=== PATIENT | female | born 1960 | race Caucasian/White ===

== ENCOUNTER 2018-09-23 08:30 | Emergency (ER) | payer OTHER ==
[~2018-09-23] VITALS: Ht 165.1 cm; Wt 149.7 kg
[~2018-09-23 08:30] MED LIST: ALBU90OI6 INH; ALLO100; ALLO100 PO; ASPI325; ASPI325 PO; ASPI81CH PO; BUDE32NIS; BUTALB-ACETAMI1 EAC1 PO; CLON.5 PO; CYCL10; DOCU100; EXEN5PENI; FERR325; FLUO10; FLUSAL1005 INH; FURO40; GLIM2; GLIP10 PO; HYDACE5325; ISOMON20 PO; ISOSORBIDE PO; LISI20; Lantus100 UNIT/1 SQ; METF500; METF500 PO; METO25 PO; MONT10T PO; MONT4 PO; NASAL SPRAY; NIAC500 PO; PANT40 PO; PIOG15 PO; POTASSIUM; POTASSIUM99 M1 PO; Prinivil10 MG PO; QVAR7.3 G1; QVAR7.3 G1 IH; TIZANIDINE HCL2 MG PO
[2018-09-23 09:22] LABS: BASOPHILS ABSOLUTE AUTO 0.04 K/mm3 (0.00-0.23); BASOPHILS PERCENT AUTO 0 % (0-2); EOSINOPHILS ABSOLUTE AUTO 0.14 K/mm3 (0.00-0.68); EOSINOPHILS PERCENT AUTO 2 % (0-6); Hematocrit 40.4 % (33.0-51.0); Hemoglobin 12.5 g/dL (11.5-16.0); IMMATURE GRAN ABSOLUTE AUTO 0.04 K/mm3 (0.00-0.10); IMMATURE GRAN PERCENT AUTO 0 % (0-1); LYMPHOCYTES ABSOLUTE AUTO 1.79 K/mm3 (0.84-5.20); LYMPHOCYTES PERCENT AUTO 19 % (21-46); MONOCYTES ABSOLUTE AUTO 0.34 K/mm3 (0.16-1.47); MONOCYTES PERCENT AUTO 4 % (4-13); Mean Corpuscular HGB 26.9 pg (26.0-34.0); Mean Corpuscular HGB Conc 30.9 g/dL (31.5-36.5); Mean Corpuscular Volume 87 fL (80-100); NEUTROPHILS ABSOLUTE AUTO 7.15 K/mm3 (1.96-9.15); NEUTROPHILS PERCENT AUTO 75 % (41-73); Platelet Count 212 K/mm3 (150-400); RDW Coefficient Variation 14.1 % (11.7-14.2); RDW Standard Deviation 44.6 fL (35.1-46.3); Red Blood Cell Count 4.64 M/mm3 (3.80-5.20)
[2018-09-23 09:42] LABS: Alanine Aminotransfer (ALT/SGP 30 U/L (12-78); Albumin, Blood 3.3 g/dL (3.4-5.0); Albumin/Globulin Ratio 0.9 (0.8-1.8); Alk Phos 95 U/L (50-136); Anion Gap 8 mmol/L (6-16); Aspartate Aminotrans (AST/SGOT 30 U/L (12-37); Bilirubin, Total 0.3 mg/dL (0.1-1.0); Blood Urea Nitrogen 14 mg/dL (8-24); Bun/Creatinine Ratio 35.4 (12.0-20.0); CO2, Blood 27 mmol/L (21-32); Calcium, Blood 8.6 mg/dL (8.5-10.1); Chloride, Blood 101 mmol/L (98-108); Globulin, Blood 3.8 g/dL (2.2-4.0); Glomerular Filtration Rate >60 (60-); Glucose, Blood 220 mg/dL (70-99); Potassium, Blood 4.3 mmol/L (3.5-5.5); Sodium, Blood 136 mmol/L (136-145); Total Protein, Blood 7.1 g/dL (6.4-8.2); Troponin I <0.015 ng/mL (0.000-0.040)
[2018-09-23] MEDS ORDERED: INSULANPEN SC (10:30)
[2018-09-23] MEDS ORDERED: Prozac40 MG PO (10:30)
[2018-09-23] MEDS ORDERED: FURO20 PO (10:32)
[2018-09-23] MEDS ORDERED: BREO ELLIPTA 21 EACH IH (10:32)
[2018-09-23] MEDS ORDERED: CELE200 PO (10:32)
[2018-09-23] MEDS ORDERED: TIOT18 INH (10:32)
== END 2018-09-23 10:52 | disposition home or self-care (01) ==
LOC: ER 08:30
PROVIDERS: Internal Medicine
DX: R07.89 Other chest pain (principal); E11.21 Type 2 diabetes mellitus with diabetic nephropathy; F41.9 Anxiety disorder, unspecified; F43.10 Post-traumatic stress disorder, unspecified; J44.9 Chronic obstructive pulmonary disease, unspecified; I10 Essential (primary) hypertension; M10.9 Gout, unspecified; G47.30 Sleep apnea, unspecified; Z79.899 Other long term (current) drug therapy; Z79.4 Long term (current) use of insulin; Z79.82 Long term (current) use of aspirin; Z88.5 Allergy status to narcotic agent; Z88.8 Allergy status to other drugs, medicaments and biological substances; Z99.81 Dependence on supplemental oxygen
CPT/HCPCS: 36415; 71046; 80053; 84484; 85025; 93005; 93010; 99285-25

== ENCOUNTER 2019-03-05 10:08 | Emergency (ER) | payer OTHER ==
[~2019-03-05] VITALS: Ht 165.1 cm; Wt 149.7 kg
[~2019-03-05 10:08] MED LIST changes: +BREO ELLIPTA 21 EACH IH; +CELE200 PO; +FURO20 PO; +INSULANPEN SC; +Prozac40 MG PO; +TIOT18 INH
[2019-03-05 10:43] LABS: BASOPHILS ABSOLUTE AUTO 0.04 K/mm3 (0.00-0.23); BASOPHILS PERCENT AUTO 0 % (0-2); EOSINOPHILS ABSOLUTE AUTO 0.18 K/mm3 (0.00-0.68); EOSINOPHILS PERCENT AUTO 2 % (0-6); Hematocrit 37.7 % (33.0-51.0); Hemoglobin 11.2 g/dL (11.5-16.0); IMMATURE GRAN ABSOLUTE AUTO 0.05 K/mm3 (0.00-0.10); IMMATURE GRAN PERCENT AUTO 1 % (0-1); LYMPHOCYTES ABSOLUTE AUTO 1.92 K/mm3 (0.84-5.20); LYMPHOCYTES PERCENT AUTO 20 % (21-46); MONOCYTES ABSOLUTE AUTO 0.35 K/mm3 (0.16-1.47); MONOCYTES PERCENT AUTO 4 % (4-13); Mean Corpuscular HGB 27.2 pg (26.0-34.0); Mean Corpuscular HGB Conc 29.7 g/dL (31.5-36.5); Mean Corpuscular Volume 92 fL (80-100); Mean Platelet Volume 10.1 fL (9.1-12.4); NEUTROPHILS ABSOLUTE AUTO 7.25 K/mm3 (1.96-9.15); NEUTROPHILS PERCENT AUTO 74 % (41-73); Platelet Count 220 K/mm3 (150-400); RDW Coefficient Variation 16.4 % (11.7-14.2); RDW Standard Deviation 54.1 fL (35.1-46.3); Red Blood Cell Count 4.12 M/mm3 (3.80-5.20); White Blood Cell Count 9.79 K/mm3 (4.00-11.30)
[2019-03-05 11:04] LABS: Alanine Aminotransfer (ALT/SGP 32 U/L (12-78); Albumin, Blood 3.5 g/dL (3.4-5.0); Albumin/Globulin Ratio 0.9 (0.8-1.8); Alk Phos 85 U/L (50-136); Anion Gap 9 mmol/L (6-16); Aspartate Aminotrans (AST/SGOT 25 U/L (12-37); Bilirubin, Total 0.5 mg/dL (0.1-1.0); Blood Urea Nitrogen 15 mg/dL (8-24); CO2, Blood 28 mmol/L (21-32); Calcium, Blood 8.9 mg/dL (8.5-10.1); Chloride, Blood 101 mmol/L (98-108); Creatinine, Blood 0.54 mg/dL (0.40-1.00); Globulin, Blood 3.8 g/dL (2.2-4.0); Glomerular Filtration Rate >60 (60-); Glucose, Blood 248 mg/dL (70-99); Potassium, Blood 4.3 mmol/L (3.5-5.5); Sodium, Blood 138 mmol/L (136-145); Total Protein, Blood 7.3 g/dL (6.4-8.2); Troponin I <0.015 ng/mL (0.000-0.040)
== END 2019-03-05 14:19 | disposition short-term general hospital (02) ==
LOC: ER 10:08
PROVIDERS: Emergency Medicine
DX: I31.4 Cardiac tamponade (principal); J96.91 Respiratory failure, unspecified with hypoxia; J44.9 Chronic obstructive pulmonary disease, unspecified; E11.9 Type 2 diabetes mellitus without complications; F43.10 Post-traumatic stress disorder, unspecified; F41.9 Anxiety disorder, unspecified; I25.10 Atherosclerotic heart disease of native coronary artery without angina pectoris; Z88.8 Allergy status to other drugs, medicaments and biological substances; Z88.5 Allergy status to narcotic agent; Z79.899 Other long term (current) drug therapy; Z79.4 Long term (current) use of insulin; Z79.84 Long term (current) use of oral hypoglycemic drugs; Z79.82 Long term (current) use of aspirin; Z87.891 Personal history of nicotine dependence
CPT/HCPCS: 36415; 71045; 71260; 80053; 83880; 84484; 85025; 85379; 93005; 93010; 93308; 93321; 94644; 96374-59; 99285-25; J2930; J7030; Q9967

== ENCOUNTER 2019-03-28 10:48 | Inpatient (IN) | payer OTHER ==
[~2019-03-28] VITALS: Ht 165.1 cm; Wt 151.7 kg
[~2019-03-28 10:48] MED LIST changes: -BREO ELLIPTA 21 EACH IH; +BREO ELLIPTA 21 EACH INH
[2019-03-28 11:36] LABS: BASOPHILS ABSOLUTE AUTO 0.05 K/mm3 (0.00-0.23); BASOPHILS PERCENT AUTO 0 % (0-2); EOSINOPHILS ABSOLUTE AUTO 0.09 K/mm3 (0.00-0.68); EOSINOPHILS PERCENT AUTO 1 % (0-6); Hemoglobin 11.4 g/dL (11.5-16.0); IMMATURE GRAN ABSOLUTE AUTO 0.06 K/mm3 (0.00-0.10); IMMATURE GRAN PERCENT AUTO 1 % (0-1); LYMPHOCYTES PERCENT AUTO 12 % (21-46); MONOCYTES ABSOLUTE AUTO 0.32 K/mm3 (0.16-1.47); MONOCYTES PERCENT AUTO 3 % (4-13); Mean Corpuscular HGB 27.9 pg (26.0-34.0); Mean Corpuscular HGB Conc 29.2 g/dL (31.5-36.5); Mean Corpuscular Volume 95 fL (80-100); Mean Platelet Volume 10.7 fL (9.1-12.4); NEUTROPHILS ABSOLUTE AUTO 9.47 K/mm3 (1.96-9.15); NEUTROPHILS PERCENT AUTO 83 % (41-73); Platelet Count 237 K/mm3 (150-400); RDW Coefficient Variation 15.2 % (11.7-14.2); RDW Standard Deviation 53.8 fL (35.1-46.3); Red Blood Cell Count 4.09 M/mm3 (3.80-5.20); White Blood Cell Count 11.39 K/mm3 (4.00-11.30)
[2019-03-28] MEDS ORDERED: BUME1 PO (11:59)
[2019-03-28 12:05] LABS: Alanine Aminotransfer (ALT/SGP 31 U/L (12-78); Albumin, Blood 3.4 g/dL (3.4-5.0); Albumin/Globulin Ratio 0.8 (0.8-1.8); Alk Phos 93 U/L (50-136); Anion Gap 5 mmol/L (6-16); Aspartate Aminotrans (AST/SGOT 44 U/L (12-37); Bilirubin, Total 0.5 mg/dL (0.1-1.0); Blood Urea Nitrogen 37 mg/dL (8-24); Bun/Creatinine Ratio 48.7 (12.0-20.0); CO2, Blood 30 mmol/L (21-32); Calcium, Blood 8.6 mg/dL (8.5-10.1); Chloride, Blood 102 mmol/L (98-108); Creatinine, Blood 0.76 mg/dL (0.40-1.00); Globulin, Blood 4.2 g/dL (2.2-4.0); Glomerular Filtration Rate >60 (60-); Glucose, Blood 214 mg/dL (70-99); Potassium, Blood 5.7 mmol/L (3.5-5.5); Sodium, Blood 137 mmol/L (136-145); Total Protein, Blood 7.6 g/dL (6.4-8.2); Troponin I <0.015 ng/mL (0.000-0.040)
[2019-03-28] MEDS ORDERED: GLIP10ER PO (20:01)
[2019-03-28] MEDS ORDERED: METF500C PO (20:02)
[2019-03-28] MEDS ORDERED: Loradamed10 MG PO (20:03)
[2019-03-28] MEDS ORDERED: THERA1 EACH PO (20:04)
[2019-03-28] MEDS ORDERED: Magnesium250 MG PO (20:04)
[2019-03-28] MEDS ORDERED: PIOG45 PO (20:05)
[2019-03-28] MEDS ORDERED: FAMO20 PO (20:09)
[2019-03-28] MEDS ORDERED: ZYRTEC10 M2 PO (22:52)
[2019-03-29 05:32] LABS: BASOPHILS ABSOLUTE AUTO 0.05 K/mm3 (0.00-0.23); BASOPHILS PERCENT AUTO 1 % (0-2); EOSINOPHILS ABSOLUTE AUTO 0.16 K/mm3 (0.00-0.68); EOSINOPHILS PERCENT AUTO 2 % (0-6); Hematocrit 37.1 % (33.0-51.0); Hemoglobin 10.9 g/dL (11.5-16.0); IMMATURE GRAN ABSOLUTE AUTO 0.05 K/mm3 (0.00-0.10); IMMATURE GRAN PERCENT AUTO 1 % (0-1); LYMPHOCYTES ABSOLUTE AUTO 1.89 K/mm3 (0.84-5.20); LYMPHOCYTES PERCENT AUTO 17 % (21-46); MONOCYTES ABSOLUTE AUTO 0.53 K/mm3 (0.16-1.47); MONOCYTES PERCENT AUTO 5 % (4-13); Mean Corpuscular HGB 26.9 pg (26.0-34.0); Mean Corpuscular HGB Conc 29.4 g/dL (31.5-36.5); Mean Platelet Volume 10.3 fL (9.1-12.4); NEUTROPHILS PERCENT AUTO 76 % (41-73); Platelet Count 249 K/mm3 (150-400); RDW Coefficient Variation 15.1 % (11.7-14.2); RDW Standard Deviation 51.2 fL (35.1-46.3); Red Blood Cell Count 4.05 M/mm3 (3.80-5.20); White Blood Cell Count 10.98 K/mm3 (4.00-11.30)
[2019-03-29 05:39] LABS: Mean Corpuscular Volume 92 fL (80-100)
[2019-03-29 05:52] LABS: Anion Gap 6 mmol/L (6-16); Blood Urea Nitrogen 33 mg/dL (8-24); Bun/Creatinine Ratio 50.2 (12.0-20.0); CO2, Blood 31 mmol/L (21-32); Calcium, Blood 9.1 mg/dL (8.5-10.1); Chloride, Blood 100 mmol/L (98-108); Creatinine, Blood 0.66 mg/dL (0.40-1.00); Glomerular Filtration Rate >60 (60-); Glucose, Blood 171 mg/dL (70-99); Potassium, Blood 4.4 mmol/L (3.5-5.5); Sodium, Blood 137 mmol/L (136-145)
== END 2019-03-29 17:09 | disposition short-term general hospital (02) | DRG 314 ==
LOC: ER 10:48 → MEDS 10:59
PROVIDERS: Emergency Medicine; ADMIT Internal Medicine
DX: I31.3 Pericardial effusion (noninflammatory) (principal); I50.31 Acute diastolic (congestive) heart failure; J96.01 Acute respiratory failure with hypoxia; Z68.43 Body mass index [BMI] 50.0-59.9, adult; I11.0 Hypertensive heart disease with heart failure; J44.9 Chronic obstructive pulmonary disease, unspecified; M10.9 Gout, unspecified; F43.10 Post-traumatic stress disorder, unspecified; F41.9 Anxiety disorder, unspecified; Z79.4 Long term (current) use of insulin; Z79.82 Long term (current) use of aspirin; I25.2 Old myocardial infarction; E11.9 Type 2 diabetes mellitus without complications; Z87.891 Personal history of nicotine dependence; E66.01 Morbid (severe) obesity due to excess calories; R00.0 Tachycardia, unspecified; K21.9 Gastro-esophageal reflux disease without esophagitis; I25.10 Atherosclerotic heart disease of native coronary artery without angina pectoris; G47.33 Obstructive sleep apnea (adult) (pediatric)
CPT/HCPCS: 36415; 71046; 80048; 80053; 83605; 83880; 84484; 85025; 87040; 93005; 93010; 93308; 94640; 94660; 94760; 94762; 96372; 96374; 96376; 99285-25; G0378; J1650; J1940

== ENCOUNTER 2021-11-01 13:29 | Day surgery (SDC) | payer OTHER ==
[~2021-11-01 13:29] MED LIST changes: +BUME1 PO; +FAMO20 PO; +GLIP10ER PO; +Loradamed10 MG PO; +METF500C PO; +Magnesium250 MG PO; +PIOG45 PO; +THERA1 EACH PO; +ZYRTEC10 M2 PO
== END 2021-11-01 23:27 | disposition home or self-care (01) ==
LOC: WOUND 13:29
DX: E11.621 Type 2 diabetes mellitus with foot ulcer (principal); L97.522 Non-pressure chronic ulcer of other part of left foot with fat layer exposed; E11.51 Type 2 diabetes mellitus with diabetic peripheral angiopathy without gangrene; E11.42 Type 2 diabetes mellitus with diabetic polyneuropathy; I87.2 Venous insufficiency (chronic) (peripheral)
CPT/HCPCS: G0463

== ENCOUNTER 2021-11-08 03:19 | Day surgery (SDC) | payer OTHER | END 2021-11-08 23:24 | disposition home or self-care (01) | LOC: WOUND 03:19 | DX: E11.621 Type 2 diabetes mellitus with foot ulcer (principal); L97.529 Non-pressure chronic ulcer of other part of left foot with unspecified severity; E11.42 Type 2 diabetes mellitus with diabetic polyneuropathy; E11.51 Type 2 diabetes mellitus with diabetic peripheral angiopathy without gangrene; I87.2 Venous insufficiency (chronic) (peripheral) | CPT/HCPCS: A9270; G0463 ==

== ENCOUNTER 2021-11-15 03:09 | Day surgery (SDC) | payer OTHER | END 2021-11-15 23:23 | disposition home or self-care (01) | LOC: WOUND 03:09 | DX: E11.621 Type 2 diabetes mellitus with foot ulcer (principal); L97.522 Non-pressure chronic ulcer of other part of left foot with fat layer exposed; E11.42 Type 2 diabetes mellitus with diabetic polyneuropathy; E11.51 Type 2 diabetes mellitus with diabetic peripheral angiopathy without gangrene; I87.2 Venous insufficiency (chronic) (peripheral); J44.9 Chronic obstructive pulmonary disease, unspecified; Z99.81 Dependence on supplemental oxygen | CPT/HCPCS: A9270; G0463 ==

== ENCOUNTER 2021-12-17 00:28 | Day surgery (SDC) | payer OTHER | END 2021-12-17 23:44 | disposition home or self-care (01) | LOC: WOUND 00:28 | DX: E11.621 Type 2 diabetes mellitus with foot ulcer (principal); L97.522 Non-pressure chronic ulcer of other part of left foot with fat layer exposed; E11.42 Type 2 diabetes mellitus with diabetic polyneuropathy; E11.8 Type 2 diabetes mellitus with unspecified complications; E11.51 Type 2 diabetes mellitus with diabetic peripheral angiopathy without gangrene; I87.2 Venous insufficiency (chronic) (peripheral) | CPT/HCPCS: A9270; G0463 ==

== ENCOUNTER 2022-01-07 01:51 | Day surgery (SDC) | payer OTHER | END 2022-01-07 23:00 | disposition home or self-care (01) | LOC: WOUND 01:51 | DX: E11.621 Type 2 diabetes mellitus with foot ulcer (principal); L97.522 Non-pressure chronic ulcer of other part of left foot with fat layer exposed; E11.42 Type 2 diabetes mellitus with diabetic polyneuropathy; E11.51 Type 2 diabetes mellitus with diabetic peripheral angiopathy without gangrene; I87.2 Venous insufficiency (chronic) (peripheral) ==

== ENCOUNTER 2022-01-17 08:00 | Day surgery (SDC) | payer OTHER ==
[~2022-01-17 08:00] MED LIST changes: -ALBU90OI6 INH; -ALLO100 PO; +ALLO300 PO; -METF500C PO; +METFORMIN HCL1000 MG PO; +MULVITA PO; +PROAIR DIGIHAL90 MCG INH; -THERA1 EACH PO
== END 2022-01-17 23:59 | disposition home or self-care (01) ==
LOC: WOUND 08:00
DX: E11.621 Type 2 diabetes mellitus with foot ulcer (principal); L97.522 Non-pressure chronic ulcer of other part of left foot with fat layer exposed; E11.42 Type 2 diabetes mellitus with diabetic polyneuropathy; E11.51 Type 2 diabetes mellitus with diabetic peripheral angiopathy without gangrene; I87.2 Venous insufficiency (chronic) (peripheral)
CPT/HCPCS: G0463

== ENCOUNTER 2022-01-31 01:18 | Day surgery (SDC) | payer OTHER ==
[~2022-01-31 01:18] MED LIST changes: +ALBU90OI6 INH; +ALLO100 PO; -ALLO300 PO; +METF500C PO; -METFORMIN HCL1000 MG PO; -MULVITA PO; -PROAIR DIGIHAL90 MCG INH; +THERA1 EACH PO
== END 2022-01-31 23:04 | disposition home or self-care (01) ==
LOC: WOUND 01:18
DX: E11.621 Type 2 diabetes mellitus with foot ulcer (principal); L97.522 Non-pressure chronic ulcer of other part of left foot with fat layer exposed; E11.42 Type 2 diabetes mellitus with diabetic polyneuropathy; E11.51 Type 2 diabetes mellitus with diabetic peripheral angiopathy without gangrene; I87.2 Venous insufficiency (chronic) (peripheral); J44.9 Chronic obstructive pulmonary disease, unspecified; I25.10 Atherosclerotic heart disease of native coronary artery without angina pectoris; Z99.81 Dependence on supplemental oxygen
CPT/HCPCS: A9270

== ENCOUNTER 2022-02-14 01:16 | Day surgery (SDC) | payer OTHER | END 2022-02-14 23:22 | disposition home or self-care (01) | LOC: WOUND 01:16 | DX: E11.621 Type 2 diabetes mellitus with foot ulcer (principal); L97.522 Non-pressure chronic ulcer of other part of left foot with fat layer exposed; E11.42 Type 2 diabetes mellitus with diabetic polyneuropathy; E11.8 Type 2 diabetes mellitus with unspecified complications; E11.51 Type 2 diabetes mellitus with diabetic peripheral angiopathy without gangrene; I87.2 Venous insufficiency (chronic) (peripheral); I25.10 Atherosclerotic heart disease of native coronary artery without angina pectoris; J44.9 Chronic obstructive pulmonary disease, unspecified; E11.40 Type 2 diabetes mellitus with diabetic neuropathy, unspecified | CPT/HCPCS: G0463 ==

== ENCOUNTER 2022-03-28 16:35 | Inpatient (IN) | payer OTHER ==
[~2022-03-28] VITALS: Ht 165.1 cm; Wt 131.1 kg
[~2022-03-28 16:35] MED LIST changes: -ALBU90OI6 INH; -ALLO100 PO; +ALLO300 PO; -METF500C PO; +METFORMIN HCL1000 MG PO; +MULVITA PO; +PROAIR DIGIHAL90 MCG INH; -THERA1 EACH PO
[2022-03-28 17:44] LABS: BASOPHILS ABSOLUTE AUTO 0.04 K/mm3 (0.00-0.23); BASOPHILS PERCENT AUTO 0 % (0-2); EOSINOPHILS PERCENT AUTO 0 % (0-6); Hematocrit 31.3 % (33.0-51.0); IMMATURE GRAN ABSOLUTE AUTO 0.07 K/mm3 (0.00-0.10); IMMATURE GRAN PERCENT AUTO 1 % (0-1); LYMPHOCYTES ABSOLUTE AUTO 0.63 K/mm3 (0.84-5.20); LYMPHOCYTES PERCENT AUTO 5 % (21-46); MONOCYTES PERCENT AUTO 2 % (4-13); Mean Corpuscular HGB 20.3 pg (26.0-34.0); Mean Corpuscular HGB Conc 28.8 g/dL (31.5-36.5); Mean Corpuscular Volume 71 fL (80-100); Mean Platelet Volume 9.4 fL (9.1-12.4); NEUTROPHILS ABSOLUTE AUTO 11.39 K/mm3 (1.96-9.15); NEUTROPHILS PERCENT AUTO 92 % (41-73); Platelet Count 278 K/mm3 (150-400); RDW Coefficient Variation 19.1 % (11.7-14.2); RDW Standard Deviation 47.9 fL (35.1-46.3); Red Blood Cell Count 4.43 M/mm3 (3.80-5.20); White Blood Cell Count 12.43 K/mm3 (4.00-11.30)
[2022-03-28 18:05] LABS: Albumin, Blood 3.2 g/dL (3.4-5.0); Albumin/Globulin Ratio 0.8 (0.8-1.8); Bilirubin, Total 0.5 mg/dL (0.1-1.0); Bun/Creatinine Ratio 22.3 (12.0-20.0); Creatinine, Blood 0.67 mg/dL (0.40-1.00); Globulin, Blood 4.1 g/dL (2.2-4.0); Potassium, Blood 4.1 mmol/L (3.5-5.5); Total Protein, Blood 7.3 g/dL (6.4-8.2)
[2022-03-28] MEDS ORDERED: LEFLUNOMIDE20 M2 PO (19:56)
[2022-03-28] MEDS ORDERED: MONT4 PO (19:56)
[2022-03-28] MEDS ORDERED: SPIRONOLACTONE25 MG PO (19:57)
[2022-03-28 21:08] LABS: Influenza A, PCR NEGATIVE (NEGATIVE); Influenza B, PCR NEGATIVE (NEGATIVE); Resp Syncytial Virus, PCR NEGATIVE (NEGATIVE); SARS-Cov-2 (COVID-19) PCR, MMC NEGATIVE (NEGATIVE)
[2022-03-28 21:13] LABS: CPK Creatine Kinase 55 U/L (26-193)
[2022-03-28] MEDS ORDERED: DILTIAZEM 24HR120 M4 PO (22:09)
[2022-03-28] MEDS ORDERED: BUTALB-CAFF-AC1 EACH PO (22:14)
[2022-03-28] MEDS ORDERED: Hydroxychloroq200 MG PO (22:14)
[2022-03-28] MEDS ORDERED: INSULANI SC (23:14)
[2022-03-28] MEDS ORDERED: CLON.5 (23:28)
[2022-03-28] MEDS ORDERED: Prozac40 MG PO (23:29)
[2022-03-28] MEDS ORDERED: TORS10 (23:30)
[2022-03-28] MEDS ORDERED: CARTIA XT PO (23:31)
[2022-03-28] MEDS ORDERED: LISI5 PO (23:32)
[2022-03-28] MEDS ORDERED: NASACORT10.8 ML (23:34)
[2022-03-28] MEDS ORDERED: Aspir 8181 MG PO (23:37)
[2022-03-28] MEDS ORDERED: HUMALOG100 UNIT/1 (23:39)
[2022-03-29 05:02] LABS: BASOPHILS ABSOLUTE AUTO 0.02 K/mm3 (0.00-0.23); BASOPHILS PERCENT AUTO 0 % (0-2); EOSINOPHILS PERCENT AUTO 0 % (0-6); Hematocrit 31.4 % (33.0-51.0); Hemoglobin 8.7 g/dL (11.5-16.0); IMMATURE GRAN ABSOLUTE AUTO 0.06 K/mm3 (0.00-0.10); IMMATURE GRAN PERCENT AUTO 1 % (0-1); LYMPHOCYTES ABSOLUTE AUTO 0.38 K/mm3 (0.84-5.20); LYMPHOCYTES PERCENT AUTO 3 % (21-46); MONOCYTES ABSOLUTE AUTO 0.35 K/mm3 (0.16-1.47); MONOCYTES PERCENT AUTO 3 % (4-13); Mean Corpuscular HGB 20.2 pg (26.0-34.0); Mean Corpuscular HGB Conc 27.7 g/dL (31.5-36.5); Mean Corpuscular Volume 73 fL (80-100); Mean Platelet Volume 9.2 fL (9.1-12.4); NEUTROPHILS PERCENT AUTO 93 % (41-73); Platelet Count 229 K/mm3 (150-400); RDW Coefficient Variation 18.9 % (11.7-14.2); RDW Standard Deviation 49.4 fL (35.1-46.3); Red Blood Cell Count 4.31 M/mm3 (3.80-5.20); White Blood Cell Count 12.21 K/mm3 (4.00-11.30)
[2022-03-29 05:31] LABS: Albumin, Blood 3.1 g/dL (3.4-5.0); Albumin/Globulin Ratio 0.8 (0.8-1.8); Bilirubin, Total 0.6 mg/dL (0.1-1.0); Bun/Creatinine Ratio 28.7 (12.0-20.0); Calcium, Blood 8.8 mg/dL (8.5-10.1); Creatinine, Blood 0.7 mg/dL (0.40-1.00); Globulin, Blood 4.1 g/dL (2.2-4.0); Potassium, Blood 4.3 mmol/L (3.5-5.5); Total Protein, Blood 7.2 g/dL (6.4-8.2)
--- NOTE | 2022-03-29 07:35 | NUR ---
NEW ADMISSION FROM ER. PT A/OX4, ON 8L VIA OXYMIZER WITH SATURATIONS 95-98% PER PT SHE USES BIPAP AT NIGHT AND USED OVERNIGHT TILL AROUND 0530. PT BG 347 DR. ROSE NOTIFIED AND PER PT TO RECEIVE LANTUS 60 UNITS. BG 373 AT TIME LANTUS 60 UNITS GIVEN AND NOTIFIED. BG THIS MORNING WITH LABS 414. DR. ROSE NOTIFIED WITH NO NEW ORDERS.
--- NOTE | 2022-03-29 16:28 | NUR ---
Echocardiogram using 0.50ml of Definity contrast performed.
[2022-03-29 17:10] LABS: Free Thyroxine 1.06 ng/dL (0.70-1.60)
[2022-03-29 17:12] LABS: Triiodothyronine, Free 1.56 pg/mL (2.18-3.98)
--- NOTE | 2022-03-30 05:46 | NUR ---
61 year old Female with CHF & CASSIDY & pulmonary hypertension continues on baseline 6 l nc & has bioxx with no desats noted. USes home bipap with bleed in. Sats 91 to 100%. Diabetic HS BG 209 uses 80 units SQ NPH insulin. Up amb to bathroom with oxygen tolerates fair. Morbid obesity has skin issues related to edema & skin folds. Pillow case rolled & applied to wick moisure away from skin. Antifungal powder applied. Chronic headache PT requests tylenol & antiemetic this AM.
== END 2022-03-30 13:09 | disposition home or self-care (01) | DRG 291 ==
LOC: ER 16:35 → MEDS 21:44
PROVIDERS: Emergency Medicine; Internal Medicine; Physician Assistant; ADMIT Internal Medicine
DX: I11.0 Hypertensive heart disease with heart failure (principal); I50.33 Acute on chronic diastolic (congestive) heart failure; J96.01 Acute respiratory failure with hypoxia; R65.11 Systemic inflammatory response syndrome (SIRS) of non-infectious origin with acute organ dysfunction; Z68.42 Body mass index [BMI] 45.0-49.9, adult; E66.9 Obesity, unspecified; Z20.822 Contact with and (suspected) exposure to COVID-19; G47.33 Obstructive sleep apnea (adult) (pediatric); I25.10 Atherosclerotic heart disease of native coronary artery without angina pectoris; I27.20 Pulmonary hypertension, unspecified; E04.1 Nontoxic single thyroid nodule; F41.9 Anxiety disorder, unspecified; Z88.5 Allergy status to narcotic agent; Z88.8 Allergy status to other drugs, medicaments and biological substances; K21.9 Gastro-esophageal reflux disease without esophagitis; I25.2 Old myocardial infarction; E11.9 Type 2 diabetes mellitus without complications; I10 Essential (primary) hypertension; Z79.899 Other long term (current) drug therapy; Z79.4 Long term (current) use of insulin; Z90.49 Acquired absence of other specified parts of digestive tract; Z98.890 Other specified postprocedural states; D63.8 Anemia in other chronic diseases classified elsewhere; F43.10 Post-traumatic stress disorder, unspecified; Z87.442 Personal history of urinary calculi; Z87.891 Personal history of nicotine dependence
CPT/HCPCS: 0241U; 36415; 71046; 71260; 76536; 80053; 82550; 82947; 83520; 83605; 83880; 84439; 84443; 84481; 84484; 85025; 93005; 93010; 93246; 94644; 94660; 94664; 94762; 96365-59; 96372-59; 96375-59; 99285-25; A9270; C8929; J0696; J1650; J1815; J1940; J2405; J2930; J3475; Q9957; Q9967

== ENCOUNTER 2022-04-22 02:21 | Day surgery (SDC) | payer OTHER ==
[~2022-04-22 02:21] MED LIST changes: +Aspir 8181 MG PO; +BUTALB-CAFF-AC1 EACH PO; +CARTIA XT PO; +CLON.5; +DILTIAZEM 24HR120 M4 PO; +HUMALOG100 UNIT/1; +Hydroxychloroq200 MG PO; +INSULANI SC; +LEFLUNOMIDE20 M2 PO; +LISI5 PO; +NASACORT10.8 ML; +SPIRONOLACTONE25 MG PO; +TORS10
== END 2022-04-22 23:06 | disposition home or self-care (01) ==
LOC: WOUND 02:21
DX: E11.621 Type 2 diabetes mellitus with foot ulcer (principal); E11.51 Type 2 diabetes mellitus with diabetic peripheral angiopathy without gangrene; L97.529 Non-pressure chronic ulcer of other part of left foot with unspecified severity; I87.2 Venous insufficiency (chronic) (peripheral); Z88.5 Allergy status to narcotic agent; Z87.891 Personal history of nicotine dependence; E11.40 Type 2 diabetes mellitus with diabetic neuropathy, unspecified; J44.9 Chronic obstructive pulmonary disease, unspecified
CPT/HCPCS: G0463

== ENCOUNTER → 2022-04-26 | Outpatient (CLI) | payer OTHER ==
[2022-04-27 10:52] LABS: Stool Occult Bld Immuno 1 Negative (NEGATIVE)
== END | disposition home or self-care (01) ==
LOC: LAB SHORT 08:30 → LAB 08:30
PROVIDERS: Family Medicine
DX: D50.9 Iron deficiency anemia, unspecified (principal)
CPT/HCPCS: G0328

== ENCOUNTER 2022-05-06 01:26 | Day surgery (SDC) | payer OTHER | END 2022-05-06 22:58 | disposition home or self-care (01) | LOC: WOUND 01:26 | DX: E11.621 Type 2 diabetes mellitus with foot ulcer (principal); L97.522 Non-pressure chronic ulcer of other part of left foot with fat layer exposed; E11.59 Type 2 diabetes mellitus with other circulatory complications; E11.51 Type 2 diabetes mellitus with diabetic peripheral angiopathy without gangrene; I87.2 Venous insufficiency (chronic) (peripheral); E11.40 Type 2 diabetes mellitus with diabetic neuropathy, unspecified; I25.10 Atherosclerotic heart disease of native coronary artery without angina pectoris; J44.9 Chronic obstructive pulmonary disease, unspecified | CPT/HCPCS: A9270; G0463 ==

== ENCOUNTER 2022-05-20 02:06 | Day surgery (SDC) | payer OTHER | END 2022-05-20 23:16 | disposition home or self-care (01) | LOC: WOUND 02:06 | DX: E11.621 Type 2 diabetes mellitus with foot ulcer (principal); L97.829 Non-pressure chronic ulcer of other part of left lower leg with unspecified severity; E11.59 Type 2 diabetes mellitus with other circulatory complications; E11.51 Type 2 diabetes mellitus with diabetic peripheral angiopathy without gangrene; I87.2 Venous insufficiency (chronic) (peripheral); J44.9 Chronic obstructive pulmonary disease, unspecified | CPT/HCPCS: G0463 ==

== ENCOUNTER 2022-11-04 07:16 | Day surgery (SDC) | payer OTHER | END 2022-11-04 22:42 | disposition home or self-care (01) | LOC: WOUND 07:16 | DX: E11.621 Type 2 diabetes mellitus with foot ulcer (principal); E11.40 Type 2 diabetes mellitus with diabetic neuropathy, unspecified; J44.9 Chronic obstructive pulmonary disease, unspecified; Z99.81 Dependence on supplemental oxygen; I25.10 Atherosclerotic heart disease of native coronary artery without angina pectoris; E11.51 Type 2 diabetes mellitus with diabetic peripheral angiopathy without gangrene; I87.2 Venous insufficiency (chronic) (peripheral); E11.21 Type 2 diabetes mellitus with diabetic nephropathy; G47.33 Obstructive sleep apnea (adult) (pediatric); I10 Essential (primary) hypertension | CPT/HCPCS: A9270; G0463 ==

== ENCOUNTER 2022-11-10 03:45 | Day surgery (SDC) | payer OTHER | END 2022-11-10 23:17 | disposition home or self-care (01) | LOC: WOUND 03:45 | DX: E11.621 Type 2 diabetes mellitus with foot ulcer (principal); L97.526 Non-pressure chronic ulcer of other part of left foot with bone involvement without evidence of necrosis; E11.59 Type 2 diabetes mellitus with other circulatory complications; I73.9 Peripheral vascular disease, unspecified; I87.2 Venous insufficiency (chronic) (peripheral); E11.21 Type 2 diabetes mellitus with diabetic nephropathy; J44.9 Chronic obstructive pulmonary disease, unspecified; G47.33 Obstructive sleep apnea (adult) (pediatric); I10 Essential (primary) hypertension | CPT/HCPCS: A9270; G0463 ==

== ENCOUNTER 2022-11-18 01:14 | Day surgery (SDC) | payer OTHER | END 2022-11-19 22:40 | disposition home or self-care (01) | LOC: WOUND 01:14 | DX: E11.621 Type 2 diabetes mellitus with foot ulcer (principal); I87.2 Venous insufficiency (chronic) (peripheral); L97.526 Non-pressure chronic ulcer of other part of left foot with bone involvement without evidence of necrosis; E11.59 Type 2 diabetes mellitus with other circulatory complications; I73.9 Peripheral vascular disease, unspecified; E11.21 Type 2 diabetes mellitus with diabetic nephropathy; J44.9 Chronic obstructive pulmonary disease, unspecified; G47.33 Obstructive sleep apnea (adult) (pediatric); I10 Essential (primary) hypertension | CPT/HCPCS: A9270 ==

== ENCOUNTER 2022-11-25 00:12 | Day surgery (SDC) | payer OTHER | END 2022-11-25 23:04 | disposition home or self-care (01) | LOC: WOUND 00:12 | DX: E11.621 Type 2 diabetes mellitus with foot ulcer (principal); L97.524 Non-pressure chronic ulcer of other part of left foot with necrosis of bone; E11.59 Type 2 diabetes mellitus with other circulatory complications; I73.9 Peripheral vascular disease, unspecified; I87.2 Venous insufficiency (chronic) (peripheral); E11.21 Type 2 diabetes mellitus with diabetic nephropathy; J44.9 Chronic obstructive pulmonary disease, unspecified; G47.33 Obstructive sleep apnea (adult) (pediatric); I10 Essential (primary) hypertension | CPT/HCPCS: A9270 ==

== ENCOUNTER 2022-12-09 00:52 | Day surgery (SDC) | payer OTHER | END 2022-12-09 22:51 | disposition home or self-care (01) | LOC: WOUND 00:52 | DX: E11.621 Type 2 diabetes mellitus with foot ulcer (principal); L97.522 Non-pressure chronic ulcer of other part of left foot with fat layer exposed; E11.59 Type 2 diabetes mellitus with other circulatory complications; E11.51 Type 2 diabetes mellitus with diabetic peripheral angiopathy without gangrene; E11.21 Type 2 diabetes mellitus with diabetic nephropathy; I87.2 Venous insufficiency (chronic) (peripheral); J44.9 Chronic obstructive pulmonary disease, unspecified; G47.33 Obstructive sleep apnea (adult) (pediatric); I10 Essential (primary) hypertension; I25.10 Atherosclerotic heart disease of native coronary artery without angina pectoris; Z99.81 Dependence on supplemental oxygen | CPT/HCPCS: A9270; G0463 ==

== ENCOUNTER 2022-12-30 02:18 | Day surgery (SDC) | payer OTHER | END 2022-12-30 22:47 | disposition home or self-care (01) | LOC: WOUND 02:18 | DX: E11.621 Type 2 diabetes mellitus with foot ulcer (principal); E11.59 Type 2 diabetes mellitus with other circulatory complications; E11.51 Type 2 diabetes mellitus with diabetic peripheral angiopathy without gangrene; E11.21 Type 2 diabetes mellitus with diabetic nephropathy; I87.2 Venous insufficiency (chronic) (peripheral); J44.9 Chronic obstructive pulmonary disease, unspecified; G47.33 Obstructive sleep apnea (adult) (pediatric); I10 Essential (primary) hypertension; Z99.81 Dependence on supplemental oxygen; I25.10 Atherosclerotic heart disease of native coronary artery without angina pectoris | CPT/HCPCS: G0463 ==

== ENCOUNTER → 2023-08-04 | Outpatient (CLI) | payer OTHER | LOC: LAB 17:33 → LAB SHORT 17:33 | DX: N39.0 Urinary tract infection, site not specified (principal) | CPT/HCPCS: 87086 ==

== ENCOUNTER 2023-08-11 04:28 | Day surgery (SDC) | payer OTHER ==
[2023-08-10 17:02] LABS: BASOPHILS ABSOLUTE AUTO 0.08 K/mm3 (0.00-0.23); BASOPHILS PERCENT AUTO 0 % (0-2); EOSINOPHILS ABSOLUTE AUTO 0.19 K/mm3 (0.00-0.68); EOSINOPHILS PERCENT AUTO 1 % (0-6); Hematocrit 29.6 % (33.0-51.0); Hemoglobin 7.4 g/dL (11.5-16.0); IMMATURE GRAN ABSOLUTE AUTO 0.09 K/mm3 (0.00-0.10); IMMATURE GRAN PERCENT AUTO 1 % (0-1); LYMPHOCYTES ABSOLUTE AUTO 2.25 K/mm3 (0.84-5.20); LYMPHOCYTES PERCENT AUTO 12 % (21-46); MONOCYTES ABSOLUTE AUTO 0.63 K/mm3 (0.16-1.47); MONOCYTES PERCENT AUTO 3 % (4-13); Mean Corpuscular HGB 16.7 pg (26.0-34.0); Mean Corpuscular Volume 67 fL (80-100); Mean Platelet Volume 10.4 fL (9.1-12.4); NEUTROPHILS ABSOLUTE AUTO 15.95 K/mm3 (1.96-9.15); NEUTROPHILS PERCENT AUTO 83 % (41-73); NRBC ABSOLUTE 0.02 K/mm3 (0.00-0.02); NRBC Auto 0.1 /100 WBC (0.0-0.2); Platelet Count 374 K/mm3 (150-400); RDW Coefficient Variation 21.7 % (11.7-14.2); Red Blood Cell Count 4.43 M/mm3 (3.80-5.20); White Blood Cell Count 19.19 K/mm3 (4.00-11.30)
[2023-08-10 17:14] LABS: Hematocrit 29.4 % (33.0-51.0); Hemoglobin 7.3 g/dL (11.5-16.0); Mean Corpuscular HGB 16.6 pg (26.0-34.0); Mean Corpuscular HGB Conc 24.8 g/dL (31.5-36.5); Mean Corpuscular Volume 67 fL (80-100); Mean Platelet Volume 9.9 fL (9.1-12.4); NRBC ABSOLUTE 0.02 K/mm3 (0.00-0.02); NRBC Auto 0.1 /100 WBC (0.0-0.2); Platelet Count 356 K/mm3 (150-400); RDW Coefficient Variation 21.6 % (11.7-14.2); RDW Standard Deviation 49.6 fL (35.1-46.3); Red Blood Cell Count 4.39 M/mm3 (3.80-5.20)
[2023-08-10 17:52] LABS: C-REACTIVE PROTEIN, EXT RANGE 0.708 mg/dL (0.000-0.300)
[2023-08-10 17:54] LABS: Albumin, Blood 3.3 g/dL (3.4-5.0); Albumin/Globulin Ratio 0.9 (0.8-1.8); Bilirubin, Total 0.3 mg/dL (0.1-1.0); Bun/Creatinine Ratio 22.7 (12.0-20.0); Calcium, Blood 8.6 mg/dL (8.5-10.1); Creatinine, Blood 0.88 mg/dL (0.40-1.00); Globulin, Blood 3.7 g/dL (2.2-4.0); Potassium, Blood 3.8 mmol/L (3.5-5.5)
[2023-08-11 14:24] VITALS: BP 96/48
[2023-08-11 14:40] VITALS: BP 103/61
[2023-08-11 15:36] VITALS: BP 97/53
[2023-08-11 16:06] VITALS: BP 90/48
[2023-08-11 16:28] VITALS: BP 88/48
[2023-08-11 17:57] VITALS: BP 116/65
== END 2023-08-11 17:55 | disposition home or self-care (01) ==
LOC: ATC 04:28 → LAB FUT 07-21 08:15 → EDSTATUS 07-21 08:15
PROVIDERS: Internal Medicine Rheumatology; Nurse Practitioner
DX: M05.9 Rheumatoid arthritis with rheumatoid factor, unspecified (principal); D84.821 Immunodeficiency due to drugs; D50.9 Iron deficiency anemia, unspecified; I10 Essential (primary) hypertension; E11.9 Type 2 diabetes mellitus without complications; G47.30 Sleep apnea, unspecified; J44.9 Chronic obstructive pulmonary disease, unspecified; Z87.891 Personal history of nicotine dependence; Z88.5 Allergy status to narcotic agent; Z88.8 Allergy status to other drugs, medicaments and biological substances; Z79.4 Long term (current) use of insulin; Z79.82 Long term (current) use of aspirin; Z79.899 Other long term (current) drug therapy
CPT/HCPCS: 36415; 80053; 85025; 85027; 85651; 86140; 86850; 86900; 86901; 86920; P9016

== ENCOUNTER 2024-05-29 05:36 | Day surgery (SDC) | payer OTHER ==
[~2024-05-29 05:36] MED LIST changes: +HYDSUL200 PO; +MOUNJARO5 MG/0.5 M SC
== END 2024-05-29 23:06 | disposition home or self-care (01) ==
LOC: WOUND 05:36
DX: E11.621 Type 2 diabetes mellitus with foot ulcer (principal); L97.523 Non-pressure chronic ulcer of other part of left foot with necrosis of muscle; E11.40 Type 2 diabetes mellitus with diabetic neuropathy, unspecified; E11.21 Type 2 diabetes mellitus with diabetic nephropathy; E11.65 Type 2 diabetes mellitus with hyperglycemia; J44.9 Chronic obstructive pulmonary disease, unspecified; I25.10 Atherosclerotic heart disease of native coronary artery without angina pectoris
CPT/HCPCS: G0463

== ENCOUNTER 2024-06-05 00:55 | Day surgery (SDC) | payer OTHER | END 2024-06-05 23:14 | disposition home or self-care (01) | LOC: WOUND 00:55 | DX: E11.621 Type 2 diabetes mellitus with foot ulcer (principal); E11.21 Type 2 diabetes mellitus with diabetic nephropathy; E11.65 Type 2 diabetes mellitus with hyperglycemia | CPT/HCPCS: G0463 ==

== ENCOUNTER 2024-06-12 04:06 | Day surgery (SDC) | payer OTHER ==
[2024-06-12] MEDS ORDERED: Lidocaine HCl 4% Cream 5 GM ONE (09:53)
== END 2024-06-12 22:41 | disposition home or self-care (01) ==
LOC: WOUND 04:06
DX: E11.621 Type 2 diabetes mellitus with foot ulcer (principal); L97.522 Non-pressure chronic ulcer of other part of left foot with fat layer exposed; E11.21 Type 2 diabetes mellitus with diabetic nephropathy; E11.65 Type 2 diabetes mellitus with hyperglycemia; J44.9 Chronic obstructive pulmonary disease, unspecified; I25.10 Atherosclerotic heart disease of native coronary artery without angina pectoris
CPT/HCPCS: A6196; A9270

== ENCOUNTER 2024-06-27 02:51 | Day surgery (SDC) | payer OTHER | END 2024-06-27 22:52 | disposition home or self-care (01) | LOC: WOUND | DX: E11.621 Type 2 diabetes mellitus with foot ulcer (principal); L97.522 Non-pressure chronic ulcer of other part of left foot with fat layer exposed; E11.21 Type 2 diabetes mellitus with diabetic nephropathy; E11.65 Type 2 diabetes mellitus with hyperglycemia; E11.40 Type 2 diabetes mellitus with diabetic neuropathy, unspecified; J44.9 Chronic obstructive pulmonary disease, unspecified; I25.10 Atherosclerotic heart disease of native coronary artery without angina pectoris | CPT/HCPCS: A6196; G0463 ==

== ENCOUNTER 2024-07-04 02:58 | Day surgery (SDC) | payer OTHER ==
[2024-07-04] MEDS ORDERED: Silver Nitr/Potassium Nitrate 1 EA APPL ONE (13:34)
== END 2024-07-04 23:00 | disposition home or self-care (01) ==
LOC: WOUND 02:58
DX: E11.621 Type 2 diabetes mellitus with foot ulcer (principal); L97.522 Non-pressure chronic ulcer of other part of left foot with fat layer exposed; E11.21 Type 2 diabetes mellitus with diabetic nephropathy; E11.65 Type 2 diabetes mellitus with hyperglycemia
CPT/HCPCS: A9270

== ENCOUNTER 2024-07-24 02:18 | Day surgery (SDC) | payer OTHER | END 2024-07-24 23:00 | disposition home or self-care (01) | LOC: WOUND 02:18 | DX: E11.621 Type 2 diabetes mellitus with foot ulcer (principal); L97.522 Non-pressure chronic ulcer of other part of left foot with fat layer exposed; E11.21 Type 2 diabetes mellitus with diabetic nephropathy; E11.65 Type 2 diabetes mellitus with hyperglycemia; J44.9 Chronic obstructive pulmonary disease, unspecified; I25.10 Atherosclerotic heart disease of native coronary artery without angina pectoris | CPT/HCPCS: G0463 ==

== ENCOUNTER 2024-07-31 01:24 | Day surgery (SDC) | payer OTHER | END 2024-07-31 23:01 | disposition home or self-care (01) | LOC: WOUND | DX: E11.621 Type 2 diabetes mellitus with foot ulcer (principal); L97.522 Non-pressure chronic ulcer of other part of left foot with fat layer exposed; E11.40 Type 2 diabetes mellitus with diabetic neuropathy, unspecified; J44.9 Chronic obstructive pulmonary disease, unspecified; I25.10 Atherosclerotic heart disease of native coronary artery without angina pectoris; E11.21 Type 2 diabetes mellitus with diabetic nephropathy; E11.65 Type 2 diabetes mellitus with hyperglycemia ==

== ENCOUNTER 2024-08-06 01:31 | Day surgery (SDC) | payer OTHER | END 2024-08-06 23:00 | disposition home or self-care (01) | LOC: WOUND 01:31 | DX: E11.621 Type 2 diabetes mellitus with foot ulcer (principal); L97.522 Non-pressure chronic ulcer of other part of left foot with fat layer exposed; E11.21 Type 2 diabetes mellitus with diabetic nephropathy; E11.65 Type 2 diabetes mellitus with hyperglycemia | CPT/HCPCS: G0463 ==

== ENCOUNTER 2024-08-12 02:22 | Day surgery (SDC) | payer OTHER | END 2024-08-12 22:52 | disposition home or self-care (01) | LOC: WOUND 02:22 | DX: E11.621 Type 2 diabetes mellitus with foot ulcer (principal); L97.522 Non-pressure chronic ulcer of other part of left foot with fat layer exposed; E11.40 Type 2 diabetes mellitus with diabetic neuropathy, unspecified; J44.9 Chronic obstructive pulmonary disease, unspecified; I25.10 Atherosclerotic heart disease of native coronary artery without angina pectoris; E11.21 Type 2 diabetes mellitus with diabetic nephropathy; E11.65 Type 2 diabetes mellitus with hyperglycemia ==

== ENCOUNTER 2024-08-27 06:11 | Inpatient (IN) | payer OTHER ==
[~2024-08-27] VITALS: Ht 172.7 cm; Wt 122.0 kg
[~2024-08-27 06:11] MED LIST changes: +ARAVA10 M1 PO; -DILTIAZEM 24HR120 M4 PO; +DILTIAZEM 24HR180 M3 PO; -HUMALOG100 UNIT/1; +HUMALOG100 UNIT/1 SC; -LEFLUNOMIDE20 M2 PO; -MOUNJARO5 MG/0.5 M SC
[2024-08-27] MEDS ORDERED: Acetaminophen 500 MG Tab PO ONE ×3 (06:40→21:00)
[2024-08-27 06:41] LABS: BASOPHILS ABSOLUTE AUTO 0.04 K/mm3 (0.00-0.23); BASOPHILS PERCENT AUTO 0 % (0-2); EOSINOPHILS PERCENT AUTO 1 % (0-6); Hematocrit 34.7 % (33.0-51.0); Hemoglobin 10.9 g/dL (11.5-16.0); IMMATURE GRAN ABSOLUTE AUTO 0.07 K/mm3 (0.00-0.10); IMMATURE GRAN PERCENT AUTO 1 % (0-1); LYMPHOCYTES ABSOLUTE AUTO 1.49 K/mm3 (0.84-5.20); LYMPHOCYTES PERCENT AUTO 10 % (21-46); MONOCYTES PERCENT AUTO 5 % (4-13); Mean Corpuscular HGB 26.8 pg (26.0-34.0); Mean Corpuscular HGB Conc 31.4 g/dL (31.5-36.5); Mean Corpuscular Volume 86 fL (80-100); Mean Platelet Volume 10.5 fL (9.1-12.4); NEUTROPHILS PERCENT AUTO 84 % (41-73); Platelet Count 170 K/mm3 (150-400); RDW Coefficient Variation 15.4 % (11.7-14.2); RDW Standard Deviation 47.5 fL (35.1-46.3); Red Blood Cell Count 4.06 M/mm3 (3.80-5.20)
[2024-08-27 07:07] LABS: Magnesium, Blood 1.9 mg/dL (1.6-2.4)
[2024-08-27 07:10] LABS: Bun/Creatinine Ratio 24.1 (12.0-20.0); Calcium, Blood 8.8 mg/dL (8.5-10.1); Creatinine, Blood 0.83 mg/dL (0.40-1.00); Potassium, Blood 3.9 mmol/L (3.5-5.5); Thyroid Stimulating Hormone 0.015 uIU/mL (0.360-4.800)
[2024-08-27 07:43] LABS: Adenovirus Not Detected (NOT DETECT); Bordetella pertussis Not Detected (NOT DETECT); Chlamydophila pneumoniae Not Detected (NOT DETECT); Coronavirus 229E Not Detected (NOT DETECT); Coronavirus HKU1 Not Detected (NOT DETECT); Coronavirus NL63 Not Detected (NOT DETECT); Coronavirus OC43 Not Detected (NOT DETECT); Human Metapneumovirus Not Detected (NOT DETECT); Human Rhinovirus/Enterovirus Not Detected (NOT DETECT); Influenza A/2009-H1 Not Detected (NOT DETECT); Influenza A/H1 Not Detected (NOT DETECT); Influenza A/H3 Not Detected (NOT DETECT); Influenza B Not Detected (NOT DETECT); Mycoplasma pneumoniae Not Detected (NOT DETECT); Parainfluenza Virus 1 Not Detected (NOT DETECT); Parainfluenza Virus 2 Not Detected (NOT DETECT); Parainfluenza Virus 3 Not Detected (NOT DETECT); Parainfluenza Virus 4 Not Detected (NOT DETECT); Respiratory Syncytial Virus Not Detected (NOT DETECT); SARS-Cov-2 (COVID-19), BioFire Not Detected (NOT DETECT)
[2024-08-27] MEDS ORDERED: FLU VACC TS2024-25(6MOS UP)/PF 45 MCG/0.5 ML SYRINGE IM SCH (13:40)
[2024-08-27] MEDS ORDERED: NS 1,000 ML IV SCH (13:45)
[2024-08-27] MEDS ORDERED: Budesonide 0.5 MG/2 ML RESP INH SCH (13:45)
[2024-08-27] MEDS ORDERED: Albuterol 2.5 MG/3 ML VIAL INH PRN (13:45)
[2024-08-27] MEDS ORDERED: Acetaminophen/Codeine 300-30 mg PO PRN (13:50)
[2024-08-27] MEDS ORDERED: CAFFEIN PO PRN (13:55)
[2024-08-27] MEDS ORDERED: BUTALB PO PRN (13:55)
[2024-08-27] MEDS ORDERED: APAP PO PRN (13:55)
[2024-08-27] MEDS ORDERED: CODEINE PO PRN (13:55)
[2024-08-27] MEDS ORDERED: CefTRIAXone Sodium 1,000 MG in NS 100 ML IV SCH (14:00)
[2024-08-27] MEDS ORDERED: Diltiazem HCl 180 MG Cap.CD PO SCH (14:00)
[2024-08-27 15:20] VITALS: BP 151/112
[2024-08-27] MEDS ORDERED: CELE200 PO (16:27)
[2024-08-27] MEDS ORDERED: FURO40 PO (16:27)
[2024-08-27] MEDS ORDERED: Pantoprazole Sodium 40 MG Tab PO SCH (16:30)
[2024-08-27] MEDS ORDERED: Insulin Regular 100 UNIT/ML 10ML Vial SC SCH (16:30)
[2024-08-27] MEDS ORDERED: LEFL20 PO (16:30)
[2024-08-27] MEDS ORDERED: CLON.5 PO (16:32)
[2024-08-27 19:18] VITALS: BP 110/66
--- NOTE | 2024-08-27 19:20 | NUR ---
RECEIVED REPORT FROM ASHLEY ZEPEDA. ASHLEY CASTAÑEDA WILL ASSUME CARE AT [facility].
--- NOTE | 2024-08-27 19:32 | NUR ---
report from er received, pt arrived a/o with vss and elevated temp, pt was medicated. admission done, pt has had no complaints as of now. will cont to monitor pt, pt able to make needs known
--- NOTE | 2024-08-27 20:15 | NUR ---
REPORT GIVEN TO ASHLEY CASTAÑEDA.
[2024-08-27] MEDS ORDERED: Insulin Glargine-Yfgn 100 Unit/mL 3 ML SYR SC SCH (21:00)
[2024-08-27] MEDS ORDERED: Lactobacil 2-S.Thermo-Bifido 1 1 Cap PO SCH (21:00)
[2024-08-27] MEDS ORDERED: Sennosides 8.6 MG Tab PO SCH (21:00)
[2024-08-27] MEDS ORDERED: Docusate Sodium 100 MG Cap PO SCH (21:00)
[2024-08-28 03:51] VITALS: BP 141/73
--- NOTE | 2024-08-28 05:21 | NUR ---
NIGHTY SHIFT SUMMARY PT FEBRILE OFF/ON T/O THE NIGHT. APROX 2030 PT HAD ORAL TEMP OF 102.5. CALL TO HOSPTIALIST. ONE TIME ORDER FOR 500MG TYLENOL IN ADDITION TO TYLENOL 3 AND FIORICET GIVEN. APPLIED ICE PACKS TO NECK AND ABD; TX HAD GOOD EFFECT WITH NEXT ORAL TEMP READING 98.8. PT IS ON TELE AND CONT PULSE OX. PT MAINTAINING SINUS TACH IN 120'S; PT HR SPIKED INTO 150'S DURING ACTIVITY TO BSC. PT DYSPNIC WITH ACTIVITY. AFTER RETURNING TO BED AND PUTTING ON CPAP; PT HR RETURNED TO 120. FEVER BEGAN TO SPIKE AGAIN; ADMIN TYLENOL 3 AND FIORECET AGIN. ADVISED CHARGE NURSE OF CONDITON AND TO MONITOR FOR FEVER/CHANGES. EDUCATED PT HOW/WHEN TO CALL STAFF FOR ANY CHANGES. PT REQUESTED LOWER DOSE OF GLARGINE WITH 2100 MEDS. PT SCHEDULED DOSE IS 80; CBG IS 164. PER PT REQUEST, GAVE 20 UNITS. PT DEMONSTRATES UNDERSTANDING OF S/S OF HIGH/LOW BLOOD SUGAR. NEEDS ASSESSED AND MET T/O THE SHIFT. FREQUENT ROUNDING COMPLETE. CALL LIGHT ACCESSIBLE.
[2024-08-28 07:28] VITALS: BP 132/74
[2024-08-28 07:32] LABS: BASOPHILS ABSOLUTE AUTO 0.04 K/mm3 (0.00-0.23); BASOPHILS PERCENT AUTO 0 % (0-2); EOSINOPHILS ABSOLUTE AUTO 0.02 K/mm3 (0.00-0.68); EOSINOPHILS PERCENT AUTO 0 % (0-6); Hematocrit 31.2 % (33.0-51.0); Hemoglobin 9.8 g/dL (11.5-16.0); IMMATURE GRAN ABSOLUTE AUTO 0.07 K/mm3 (0.00-0.10); IMMATURE GRAN PERCENT AUTO 1 % (0-1); LYMPHOCYTES ABSOLUTE AUTO 1.11 K/mm3 (0.84-5.20); LYMPHOCYTES PERCENT AUTO 9 % (21-46); MONOCYTES PERCENT AUTO 6 % (4-13); Mean Corpuscular HGB 26.7 pg (26.0-34.0); Mean Corpuscular HGB Conc 31.4 g/dL (31.5-36.5); Mean Corpuscular Volume 85 fL (80-100); Mean Platelet Volume 10.4 fL (9.1-12.4); NEUTROPHILS ABSOLUTE AUTO 10.24 K/mm3 (1.96-9.15); NEUTROPHILS PERCENT AUTO 84 % (41-73); Platelet Count 161 K/mm3 (150-400); RDW Coefficient Variation 15.3 % (11.7-14.2); RDW Standard Deviation 47.6 fL (35.1-46.3); Red Blood Cell Count 3.67 M/mm3 (3.80-5.20); White Blood Cell Count 12.18 K/mm3 (4.00-11.30)
[2024-08-28 08:05] LABS: Bun/Creatinine Ratio 24.4 (12.0-20.0); Calcium, Blood 8.6 mg/dL (8.5-10.1); Creatinine, Blood 0.74 mg/dL (0.40-1.00); Potassium, Blood 3.7 mmol/L (3.5-5.5)
[2024-08-28] MEDS ORDERED: Leflunomide 10 MG TABLET PO SCH (09:00)
[2024-08-28] MEDS ORDERED: Celecoxib 100 MG Cap PO SCH (09:00)
[2024-08-28] MEDS ORDERED: Enoxaparin 40 MG/0.4 ML SYR SC SCH (09:00)
[2024-08-28] MEDS ORDERED: Allopurinol 300 MG Tab PO SCH (09:00)
[2024-08-28] MEDS ORDERED: FLUoxetine HCL 20 MG CAP PO SCH (09:00)
[2024-08-28] MEDS ORDERED: Spironolactone 25 MG Tab PO SCH (09:00)
[2024-08-28] MEDS ORDERED: Diltiazem HCl 180 MG Cap.CD PO SCH (09:00)
[2024-08-28 15:12] VITALS: BP 122/80
[2024-08-28] MEDS ORDERED: MONT10T PO (16:24)
[2024-08-28] MEDS ORDERED: MOUNJARO7.5 MG/0.5 SC (17:02)
[2024-08-28] MEDS ORDERED: POTASSIUM99 M3 PO (17:04)
[2024-08-28] MEDS ORDERED: MULVITA PO (17:04)
[2024-08-28] MEDS ORDERED: XYZAL5 MG PO (17:06)
[2024-08-28] MEDS ORDERED: ZYRTEC10 M2 PO (17:07)
[2024-08-28] MEDS ORDERED: [UNRECOGNIZED DRUG - REMARK] PO (17:08)
--- NOTE | 2024-08-28 19:27 | NUR ---
PT QUIETLY LAYED IN BED TODAY NO FEVERS AND NO DISTRESS, HEART RATE ELEVATED AND MD AWARE, PT C/O HX OF RAPID HEART RATE, PT ABLE TO MAKE NEEDS KNOWN AND CALL LIGHT AT BEDSIDE
[2024-08-28 19:48] VITALS: BP 149/76
[2024-08-28] MEDS ORDERED: ClonazePAM 0.5 MG Tab PO SCH (21:00)
[2024-08-29 03:45] VITALS: BP 128/79
[2024-08-29] MEDS ORDERED: NS 500 ML IV SCH (04:00)
[2024-08-29] MEDS ORDERED: ClonazePAM 0.5 MG Tab PO ONE (04:00)
[2024-08-29 04:47] LABS: BASOPHILS ABSOLUTE AUTO 0.04 K/mm3 (0.00-0.23); BASOPHILS PERCENT AUTO 0 % (0-2); EOSINOPHILS ABSOLUTE AUTO 0.04 K/mm3 (0.00-0.68); EOSINOPHILS PERCENT AUTO 0 % (0-6); Hematocrit 31.1 % (33.0-51.0); Hemoglobin 9.7 g/dL (11.5-16.0); IMMATURE GRAN ABSOLUTE AUTO 0.08 K/mm3 (0.00-0.10); IMMATURE GRAN PERCENT AUTO 1 % (0-1); LYMPHOCYTES ABSOLUTE AUTO 1.11 K/mm3 (0.84-5.20); LYMPHOCYTES PERCENT AUTO 8 % (21-46); MONOCYTES ABSOLUTE AUTO 0.74 K/mm3 (0.16-1.47); MONOCYTES PERCENT AUTO 5 % (4-13); Mean Corpuscular HGB Conc 31.2 g/dL (31.5-36.5); Mean Corpuscular Volume 83 fL (80-100); Mean Platelet Volume 10.8 fL (9.1-12.4); NEUTROPHILS ABSOLUTE AUTO 12.18 K/mm3 (1.96-9.15); NEUTROPHILS PERCENT AUTO 86 % (41-73); Platelet Count 164 K/mm3 (150-400); RDW Coefficient Variation 15.3 % (11.7-14.2); RDW Standard Deviation 46.9 fL (35.1-46.3); Red Blood Cell Count 3.73 M/mm3 (3.80-5.20); White Blood Cell Count 14.19 K/mm3 (4.00-11.30)
[2024-08-29 05:15] LABS: Bun/Creatinine Ratio 23.8 (12.0-20.0); Calcium, Blood 8.7 mg/dL (8.5-10.1); Creatinine, Blood 0.84 mg/dL (0.40-1.00)
--- NOTE | 2024-08-29 05:20 | NUR ---
SHIFT SUMMARY NOC PT A/O X 4. PLEASANT AND COOPERATIVE WITH CARE. PT HAD TEMP OF 99.8F DURING SHIFT CHANGE TYLENOL GIVEN AND DECREASED 98.2F. PT ON BASELINE O2 4L/NC AND USING CPAP FOR SLEEP WITH SPO2 >92% ON BIOX. PT PAIN BEING MANAGED PER EMAR. AROUND 0300 PT BEGAN HAVING C/O OF SOB, PT ALSO WAS NOT WEARING CPAP AT THIS TIME WHEN SLEEPING. PT HR INCREASED INTO 130'S-140'S WITH HIGH ANXIETY. HOSPITALIST NOTIFIED AND ORDERS FOR KLONOPIN AND 500 ML NS BOLUS GIVEN. CELLUTITIS UNDER R BREAST IS RED AND HOT TO TOUCH. ON TELE SINUS TACHY IN 100'S. DRESSING IN PLACE ON L BIG TOE DIABETIC FOOT ULCER. WHILE PT WAS HAVING C/O OF SOB THEY STATED THAT THEY SOMETIMES TAKE INHALER THAT IS NOT ON EMAR (SON WILL BRING IN RX TODAY SO MD CAN PRESCRIBE WIHILE IN HOSPITAL. PT CURRENTLY RESTING WITH BED IN LOWEST POSITION, AND CALL LIGHT WITHIN REACH.
[2024-08-29 08:00] VITALS: BP 142/79
[2024-08-29] MEDS ORDERED: dilTIAZem HCL 240 MG CAP.CD PO SCH (09:00)
[2024-08-29] MEDS ORDERED: BUDESONIDE INH SCH ×2 (09:40→18:30)
[2024-08-29] MEDS ORDERED: FORMOTEROL INH SCH ×2 (09:40→18:30)
[2024-08-29] MEDS ORDERED: GLYCOPYRROLATE INH SCH ×2 (09:40→18:30)
[2024-08-29] MEDS ORDERED: Vancomycin HCL 2,500 MG in NS 500 ML IV ONE (12:55)
[2024-08-29 15:03] VITALS: BP 130/83
[2024-08-29] MEDS ORDERED: Propofol 10mg/ml 20 ml Vial (Procedural) IV ONE (16:32)
[2024-08-29] MEDS ORDERED: Ketamine HCl 100 MG / ML 5ML Vial XX ONE (16:32)
--- NOTE | 2024-08-29 19:35 | NUR ---
report received verified, pt alert and awake and at side of bed, states she doesnt feel well today, pt stable and vital signs wnl. pt was assited to shower and now feels much better. dr grimes consulted for pt chest cellulitis, he arrived at 1600 and did an i/d with large amount of pus removed plus irrigation. packing was applied and covered with 4x4. sample sent to lab. pt laying quietly in bed.
[2024-08-29 21:23] VITALS: BP 118/61
[2024-08-30 05:06] LABS: Hematocrit 30.2 % (33.0-51.0); Hemoglobin 9.4 g/dL (11.5-16.0); Mean Corpuscular HGB 26.3 pg (26.0-34.0); Mean Corpuscular HGB Conc 31.1 g/dL (31.5-36.5); Mean Corpuscular Volume 85 fL (80-100); Mean Platelet Volume 11.4 fL (9.1-12.4); Platelet Count 160 K/mm3 (150-400); RDW Coefficient Variation 15.3 % (11.7-14.2); RDW Standard Deviation 46.5 fL (35.1-46.3); Red Blood Cell Count 3.57 M/mm3 (3.80-5.20); White Blood Cell Count 13.39 K/mm3 (4.00-11.30)
--- NOTE | 2024-08-30 05:20 | NUR ---
SHIFT SUMMARY NOC PT A/O X 4. PLEASANT AND COOPERATIVE WITH CARE. BP STABLE AND PT REMAINS AFEBRILE, BUT HR STILL TACHY IN 110'S ON TELE. PT RECEIVED DOSE OF HOME INHALER AT BEGINNING OF SHIFT AND REPORTED FEELING BREATHING MUCH EASIER. PT HAD ABSCESS UNDER R BREAST I&D YESTERDAY BY DR WREN, DRESSING INTACT C/D/I. PAIN BEING MANAGED BY EMAR. OM BASELINE O2 4L/NC SPO2 >92% ON CONTINOUS BIOX. HS CBG 251 AND 1 UNIT R INSULIN PER SLIDING SCALE GIVEN ALONG WITH SCHEDULED 80 UNITS GLARGINE. PT CURRENTLY RESTING WITH CPAP ON, BED IN LOWEST POSITION, AND CALL LIGHT WITHIN REACH.
[2024-08-30 05:24] LABS: Calcium, Blood 8.5 mg/dL (8.5-10.1); Creatinine, Blood 0.76 mg/dL (0.40-1.00)
[2024-08-30 07:25] VITALS: BP 130/75
[2024-08-30] MEDS ORDERED: Furosemide 80 MG Tab PO SCH (09:00)
[2024-08-30] MEDS ORDERED: Vancomycin HCL 1,500 MG in NS 250 ML IV SCH (15:00)
[2024-08-30 15:56] VITALS: BP 92/73
--- NOTE | 2024-08-30 18:23 | NUR ---
SHIFT SUMMARY: PT A/O ABLE TO MAKE NEEDS KNOWN. SHE IS ON 4L NC OR 4L BLEED INTO HOME CPAP. SHE IS ON TELE IN SINUS TACH WITH NO ACUTE EVENTS THIS SHIFT. SHE IS CONT OF BOWEL AND BLADDER AND IND WITH ADLS. SHE WAS UP FOR A SHOWER AND THIS RN REDRESSED HER WOUND WITH GAUZE PER DR. WREN.
[2024-08-30 19:41] VITALS: BP 130/72
[2024-08-30] MEDS ORDERED: Ondansetron HCl 2 MG / ML 2ML Vial IV PRN (20:40)
[2024-08-31 04:04] VITALS: BP 129/72
--- NOTE | 2024-08-31 04:36 | NUR ---
SHIFT SUMMARY NOC PT A/O X 4. PLEASANT AND COOPERATIVE WITH CARE. VSS. ON TELE SINUS RHYTHM/PAC'S IN 80'S-90'S. R BREAST PAIN AND AHMADI'S BEING MANAGED PER EMAR. HS CBG 219 AND O0 UNITS SCHEDULED GLARGINE GIVEN. PT STILL ON BASELINE O2 4L/NC SPO2 >92% ON CONTINOUS BIOX. INCISION FROM I&D 08/29 UNDER R BREAST HAS GUAZE WITH MEDIPORE TAPE IN PLACE C/D/I, AND L GREAT TOE DIABETIC ULCER WITH DRESSING IN PLACE C/D/I. PT HAS CONCERNS OVER HAVING CHRONIC FACTOR 8 DEFICIENCY AND TAKING LOVENOX. PT ALSO HAS CONCERNS OVER WHY DIETARY HAS PROHIBITED RED COLORED FOODS FROM DIET. PT CURRENTLY RESTING WITH BED IN LOWEST POSITION, AND CALL LIGHT WITHIN REACH.
[2024-08-31 07:50] VITALS: BP 150/93
[2024-08-31 14:32] LABS: Vancomycin, Trough 8.1 ug/mL (5.0-10.0)
[2024-08-31] MEDS ORDERED: Vancomycin HCL 1,000 MG in NS 250 ML IV SCH (15:00)
[2024-08-31] MEDS ORDERED: MetroNIDAZOLE 500MG/NS 100 ml 100 ML IV SCH (15:00)
[2024-08-31 15:07] VITALS: BP 128/62
--- NOTE | 2024-08-31 18:38 | NUR ---
UNEVENTFUL DAY, PT INDEPENDANT IN ROOM WAS ASSISTED TO SHOWER PER MED REQUEST SO PT COULD HAVE BREAST INCISION DRAIN IN THE SHOWER. WOUND STILL HAS FOWEL SMELL AND DRAINING PURULANT FLUID. DRESSING WAS CHANGED AND PT REMAINED CALM IN BED. TELE REMAIned in the 90s today with better control of rate.
--- NOTE | 2024-08-31 18:55 | NUR ---
RECEIVED BEDSIDE REPORT. PT LYING IN BED WITH BIPAP MASK IN PLACE. CONT BIOX 98%. WILL CONTINUE TO PROVIDE CARE T/O SHIFT. CALL LT IN REACH. A/ORIENTED.
[2024-08-31 20:20] VITALS: BP 126/80
--- NOTE | 2024-08-31 22:15 | NUR ---
PT RESTING QUIETLY, BIPAP IN PLACE, CONT BIOX 97%, HR 98. CALL LT IN REACH.
--- NOTE | 2024-09-01 01:40 | NUR ---
PT RESTING QUIETLY. ABX INFUSING. BIPAP IN PLACE. CALL LT IN REACH.
[2024-09-01 03:26] VITALS: BP 132/77
--- NOTE | 2024-09-01 05:06 | NUR ---
SHIFT SUMMARY: ALERT AND ORIENTED, INDEPENDENT IN RM, PLEASANT AND COOPERATIVE WITH CARE. ON 4L WHICH IS PT'S BASELINE. WEARS BIPAP AT HS WITH 4L BLEED IN. SATS HAVE RANGED IN THE MID NINETIES. GAUZE DRESSING UNDERNEATH RIGHT BREAST IS CDI. NO COMPLAINTS T/O SHIFT. PT HAS BEEN RESTING WELL. DID GET UP A FEW TIMES TO USE THE BATHROOM. RECEIVED SCHEDULES ABX DURING SHIFT. CBG 191. NO COVERAGE NEEDED. NO ACUTE CHANGES. WILL CONTINUE TO PROVIDE CARE UNTIL SHIFT REPORT TO ONCOMING NURSE. CALL LT IN REACH.
--- NOTE | 2024-09-01 05:20 | NUR ---
PT CURRENTLY SITTING UP ON SIDE OF BED WATCHING VIDOES ON HER PHONE. NO NEEDS AT THIS TIME. CALL LT IN REACH.
[2024-09-01 06:22] LABS: Hematocrit 28.9 % (33.0-51.0); Mean Corpuscular HGB 26.5 pg (26.0-34.0); Mean Corpuscular HGB Conc 31.1 g/dL (31.5-36.5); Mean Corpuscular Volume 85 fL (80-100); Mean Platelet Volume 10.8 fL (9.1-12.4); Platelet Count 228 K/mm3 (150-400); RDW Coefficient Variation 15.3 % (11.7-14.2); RDW Standard Deviation 47.5 fL (35.1-46.3); White Blood Cell Count 16.07 K/mm3 (4.00-11.30)
[2024-09-01 06:52] LABS: Bun/Creatinine Ratio 22.8 (12.0-20.0); Calcium, Blood 8.8 mg/dL (8.5-10.1); Creatinine, Blood 0.79 mg/dL (0.40-1.00); Potassium, Blood 3.8 mmol/L (3.5-5.5)
[2024-09-01 07:19] VITALS: BP 123/61
[2024-09-01 15:27] VITALS: BP 141/69
--- NOTE | 2024-09-01 19:37 | NUR ---
up in bed awake and alert and makes needs known, no c/o pain heart rate has also remained stable and pt has been taken off tele. pt to stay additional days for cont testing repeat blood cultures done and echo to be done in the morning. reclyner seat placed in room for pt comfort. right breast wound still draining purulant drainage and again pt showered per md request to drain wound.
[2024-09-01] MEDS ORDERED: NS 250 ML IV PRN (23:50)
[2024-09-02 03:50] VITALS: BP 150/78
[2024-09-02 04:58] LABS: Hematocrit 28.7 % (33.0-51.0); Hemoglobin 9.1 g/dL (11.5-16.0); Mean Corpuscular HGB 26.6 pg (26.0-34.0); Mean Corpuscular HGB Conc 31.7 g/dL (31.5-36.5); Mean Corpuscular Volume 84 fL (80-100); Mean Platelet Volume 10.6 fL (9.1-12.4); NRBC ABSOLUTE 0.02 K/mm3 (0.00-0.02); NRBC Auto 0.1 /100 WBC (0.0-0.2); Platelet Count 257 K/mm3 (150-400); RDW Coefficient Variation 15.5 % (11.7-14.2); RDW Standard Deviation 46.8 fL (35.1-46.3); Red Blood Cell Count 3.42 M/mm3 (3.80-5.20); White Blood Cell Count 16.68 K/mm3 (4.00-11.30)
--- NOTE | 2024-09-02 06:17 | NUR ---
SHIFT SUMMARY PT PLEASANT AND IN GOOD MOOD AT START OF SHIFT. SITTING ON THE SIDE OF HER BED PLAYING ON HER PHONE. PT RECEIVED BREATHING TX, THEN GOT READY FOR BED. AFTER EVENING MED PASS, PT TURNED OFF LIGHTS, AND WENT TO SLEEP. PT WOKE FOR MIDNIGHT MED PASS, THEN WENT BACK TO SLEEP. 0420, PT SITTING UP PLAYING ON HER PHONE, LIGHTS ON. CONNECTED IV MEDICATION WITH KVO FLUIDS.
[2024-09-02 07:06] VITALS: BP 133/69
[2024-09-02 14:41] LABS: Vancomycin, Trough 15.8 ug/mL (5.0-10.0)
[2024-09-02 15:37] VITALS: BP 128/66
[2024-09-02 19:16] VITALS: BP 120/75
--- NOTE | 2024-09-02 19:24 | NUR ---
summary report received verified, pt did well today and is now anxious to go home, waiting blood cultures and echo to be done, possible tomorrow of monday. iv antibiotic therapy in progress and pt kamran well.
[2024-09-03 03:55] VITALS: BP 143/72
--- NOTE | 2024-09-03 05:24 | NUR ---
NOC SUMMARY- NO NEW ISSUES. PT PAIN MANAGED WELL. PT HAS BEEN ABLE TO REST. PT WEARING CPAP WHEN SLEEPING. PT UP TO VOID WITHOUT ISSUE. CALL LIGHT IN REACH.
[2024-09-03 07:11] VITALS: BP 138/68
[2024-09-03] MEDS ORDERED: Metoclopramide HCl 5MG / ML 2ML Vial IV PRN (15:45)
[2024-09-03 15:50] VITALS: BP 135/71
--- NOTE | 2024-09-03 18:11 | NUR ---
SHIFT SUMMARY A&OX4, COOPERATIVE WITH CARE. INDEPENDENT IN ROOM, CALLS APPROPRIATELY. DRESSING UNDER R BREAST CHANGED. WHITE PURULENT DRAINAGE NOTED. NO ACUTE EVENTS THIS SHIFT. DENIES CP/PRESSURE, HEADACHE, DIZZINESS, AND SOB. O2 DECREASED TO 3L DURING SHIFT. SATTING IN THE MID 90'S. PLAN FOR POTENTIAL DC TOMORROW. PATIENT CURRENTLY SITTING UP IN HER CHAIR. CALL LIGHT WITHIN REACH.
[2024-09-03 19:31] VITALS: BP 137/68
[2024-09-03] MEDS ORDERED: GLYCOPYRROLATE INH SCH (20:25)
[2024-09-03] MEDS ORDERED: BUDESONIDE INH SCH (20:25)
[2024-09-03] MEDS ORDERED: FORMOTEROL INH SCH (20:25)
[2024-09-04 02:59] VITALS: BP 140/74
--- NOTE | 2024-09-04 04:56 | NUR ---
A&O, VSS, medicated 1x for pain per MAR, awake and bedresting at this time, will cont to monitor until report given to oncoming nurse.
[2024-09-04 07:22] VITALS: BP 122/90
[2024-09-04 14:26] LABS: Vancomycin, Trough 18.2 ug/mL (5.0-10.0)
[2024-09-04 15:11] VITALS: BP 132/72
--- NOTE | 2024-09-04 15:34 | NUR ---
PT IS A7OX4, VSS AND ON 4L NC. PT HAD C/O R BREAST PAIN THAT WAS RESOLVED WITH PRN MEDICATION. PT WILL BE NPO AT MIGHT FOR MD CONSULT IN THE MORNING
[2024-09-04] MEDS ORDERED: Piperacillin/Tazobactam Sod 3.375 GM in NS 100 ML IV SCH (16:00)
--- NOTE | 2024-09-04 17:30 | NUR ---
REVIEWED AND AGREE WITH ALL NOTES AND ASSESSMENTS BY CHAY JARQUIN.
[2024-09-04 19:42] VITALS: BP 114/55
[2024-09-05 02:06] VITALS: BP 131/73
[2024-09-05 05:11] LABS: Hematocrit 30.1 % (33.0-51.0); Hemoglobin 9.1 g/dL (11.5-16.0); Mean Corpuscular HGB 25.9 pg (26.0-34.0); Mean Corpuscular HGB Conc 30.2 g/dL (31.5-36.5); Mean Corpuscular Volume 86 fL (80-100); Mean Platelet Volume 10.1 fL (9.1-12.4); Platelet Count 259 K/mm3 (150-400); RDW Coefficient Variation 15.9 % (11.7-14.2); RDW Standard Deviation 48.6 fL (35.1-46.3); Red Blood Cell Count 3.52 M/mm3 (3.80-5.20); White Blood Cell Count 9.76 K/mm3 (4.00-11.30)
--- NOTE | 2024-09-05 05:13 | NUR ---
PT SLEPT BETTER THEN NIGHT BEFORE, CONTINUOUSE OXCIMETRY ON AND DOES DESAT ON OCCASION THIS MAY BE D/T THE PERFUSION IN HER FINGERS IS POOR, PT ON MULTIPLE ANTIBIOTICS, UP TO BR WITH SBA, O2 AT 4L WHICH IS HER BASELINE. PLANS TO HAVE I&D TODAY, HAS BEEN NPO SINCE 2025. PAIN TREATED NEEDED WITH TYLENOL #3. BG 129 AT HS, DECLINED ALL INSULIN.
[2024-09-05 05:57] LABS: Calcium, Blood 8.7 mg/dL (8.5-10.1); Creatinine, Blood 0.91 mg/dL (0.40-1.00); Potassium, Blood 3.8 mmol/L (3.5-5.5)
[2024-09-05 07:39] VITALS: BP 137/83
[2024-09-05] MEDS ORDERED: Empagliflozin 10 MG TAB PO SCH (11:00)
[2024-09-05] MEDS ORDERED: Fluconazole 100 MG Tab PO ONE (13:35)
--- NOTE | 2024-09-05 18:10 | NUR ---
SHIFT SUMMARY PT A&OX4 AND ANSWERS QUESTIONS APPROPRIATELY. PT RECEIVED SCHEDULED AND PRN MEDICATIONS, HELD MORNING MEDS DUE TO NPO STATUS, DR ARIZA SAW PT AND INFORMED PT THEY WOULD NOT NEED ANOTHER I&D AT THIS TIME. VSS, NO COMPLAINTS OF CP/PRESSURE OR SOB. PT INDEPENDENT IN ROOM AND REPOSITIONED INDEPENDENDTLY. NO ACUTE EVENTS AT THIS TIME. PT LEFT IN A POSITION OF SAFETY WITH FALL PRECAUTIONS IN PLACE AND CALL LIGHT IN REACH.
[2024-09-05 19:46] VITALS: BP 133/70
[2024-09-06 02:18] VITALS: BP 144/74
--- NOTE | 2024-09-06 06:30 | NUR ---
SHIFT SUMMARY PT INDEPENDENT IN ROOM. 3LNC WITH SAT'S OVER 90%- CPAP WHILE SLEEPING. DRESSING TO RIGHT SIDE CHEST/BREAST CHANGED X1 AT 0250- LARGE AMOUNTS OF PURULENT DRAINAGE DRAINING WHEN BREAST MANIPULATED. IV ANTIBIOTICS CONTINUE. PT SLEPT ON/OFF THROUGH THE NIGHT. CURRENTLY SITTING IN RECLINER.
[2024-09-06 08:04] VITALS: BP 140/74
[2024-09-06] MEDS ORDERED: Saline Nasal Spray 45 ML PRN (11:05)
[2024-09-06] MEDS ORDERED: Fluconazole 100 MG Tab PO ONE (15:00)
[2024-09-06 17:11] VITALS: BP 136/81
--- NOTE | 2024-09-06 17:47 | NUR ---
SHIFT SUMMARY PT A&OX4, VSS, ON 3L O2 NC, AMB IND, TOLERATING PO, VOIDING, AND DENIED PAIN. WOUND CARE/DRESSING COMPLETED THIS SHIFT. PT TO BE NPO AFTER MIDNIGHT FOR PHIL TOMORROW. NO OTHER ACUTE CHANGES. CALL LIGHT WITHIN REACH AND PT ABLE TO MAKE NEEDS KNOWN.
[2024-09-06 19:46] VITALS: BP 152/79
[2024-09-07] VITALS (7 sets, daily range): BP systolic 120–161; BP diastolic 60–75
[2024-09-07 05:09] LABS: Calcium, Blood 9.2 mg/dL (8.5-10.1); Creatinine, Blood 0.9 mg/dL (0.40-1.00); Potassium, Blood 4.2 mmol/L (3.5-5.5)
--- NOTE | 2024-09-07 05:13 | NUR ---
SHIFT SUMMARY PT INDEPENDENT IN ROOM. DRESSING TO R BREAST CHANGED X1 AT APPROX 2230- DRAINING PURULENT DRAINAGE, AMOUNT SIGNIFICANTLY LESS THAN PREVIOUS NIGHT. DENIES THE NEED FOR PAIN MEDICATION. IV ANTIBIOTICS CONTINUE. NPO AFTER MN FOR PHIL SCHEDULED TODAY. BED IN LOWEST POSITION, CALL LIGHT WITHIN REACH, SIDE RAILS UP X2.
[2024-09-07] MEDS ORDERED: Benzocaine Oral Spray 0.5ML UD ONE (11:43)
--- NOTE | 2024-09-07 11:46 | NUR ---
THIS NURSE AND JASS PADILLA ESCOURTED PT VIA BED TO ICU 2 FOR PHIL PROCEDURE. PT A&OX4, VSS, AND ON 3L O2 NC. REPORT GIVEN TO MONICA RAMIREZ.
[2024-09-07 14:43] LABS: Vancomycin, Trough 21.5 ug/mL (5.0-10.0)
[2024-09-07] MEDS ORDERED: Vancomycin HCL 1,750 MG in NS 500 ML IV SCH (16:00)
--- NOTE | 2024-09-07 17:05 | NUR ---
SHIFT SUMMARY PHIL PROCEDURE RESCHEDULED FOR TOMORROW. PT TO BE NPO AFTER MIDNIGHT. VANCO TROUGH 21.5, VANCO ADJUSTED BY PHARMACY. WOUND CARE/DRESSING CHANGED PER ORDER W/ MINIMAL DRAINAGE. NO OTHER ACUTE CHANGES. CALL LIGHT WITHIN REACH AND PT ABLE TO MAKE NEEDS KNOWN.
--- NOTE | 2024-09-07 18:12 | NUR ---
ICU visit. Assumed care of pt at approximately 1130 for scheduled procedure. Procedure delayed until tomorrow. Pt transferred back to room 361 at approximately 1320. No acute events while in the ICU.
[2024-09-08] VITALS (29 sets, daily range): BP systolic 113–169; BP diastolic 62–107
--- NOTE | 2024-09-08 05:58 | NUR ---
SHIFT SUMMARY PT WITH LITTLE SLEEP THROUGH THE NIGHT. REMAINS ON 3LNC WITH O2 SATS OVER 90%. USES CPAP WHEN SLEEPING. PT DENIES THE NEED FOR PAIN MEDICATION. NPO AFTER MIDNIGHT FOR PHIL TODAY. PT SHOWERED THIS AM AND DRESSING CHANGED TO RIGHT BREAST. MODERATE AMOUNT OF PURULENT DRAINAGE FROM WOUND. DRESSING CHANGED TO LEFT TOE WITH SMALL PIECE OF IODOFORM AND GAUZE PER PT REQUEST. PT CURRENTLY SITTING IN RECLINER CHAIR.
--- NOTE | 2024-09-08 10:10 | NUR ---
THIS NURSE AND CELL EFFICIENCY SUPERVISORCassi DENT ESCOURTED PT VIA BED TO ICU 2 FOR PROCEDURE. PT A&OX4, VSS, AND ON 3L O2 NC. REPORT GIVEN TO ELO RAMIREZ.
--- NOTE | 2024-09-08 10:18 | NUR ---
ASSUMED CARE PT ARRIVED TO ICU FOR PHIL. PT ALERT, ORIENTED, ON 3L/NC WITH SPO2 99%. CALL LIGHT IN REACH. DISCUSSED PLAN OF CARE WITH PT. ALL QUESTIONS ANSWERED.
[2024-09-08] MEDS ORDERED: NS 1,000 ML IV ONE ×2 (12:30→12:40)
--- NOTE | 2024-09-08 12:47 | NUR ---
PHIL: PHIL performded at bedside in ICU rm 2 1230-1245hr. Dr. Kaur and Dr. Knapp at bedside. Patient received 60mg propofol and 50mg Ketamine for procedure, Dr. kaur administered. VS remained stable throughout procedure. Patient now drowsy but awake and talking with staff. Will continue to monitor. Back to baseline of 3L/NC.
--- NOTE | 2024-09-08 14:44 | NUR ---
PT ARRIVED BACK TO THE FLOOR FROM PROCEDURE AT APPROX 1435. PT A&OX4, ON 3LO2 NC, AND DENIED PAIN. PT PROVIDED W/ SNACKS AND CALL LIGHT PLACED WITHIN REACH.
--- NOTE | 2024-09-08 14:50 | NUR ---
TRANSFER PT ALERT AND ORIENTED, FOLOWING COMMANDS, VSS, GOT UP TO TOILET WITH MINIMAL ASSISTANCE TO VOID AND HAD SMALL BM. REPORT GIVEN BACK TO KAILYN, PT'S NURSE FROM MEDICAL FLOOR, AND PT TRANSPORTED BACK TO HER ORIGINAL ROOM VIA BED. PT TOLERATED TRANSFER WELL.
--- NOTE | 2024-09-08 18:02 | NUR ---
SHIFT SUMMARY PT HAD PHIL PROCEDURE THIS SHIFT. NO OTHER ACUTE CHANGES. CALL LIGHT WITHIN REACH AND PT ABLE TO MAKE NEEDS KNOWN.
[2024-09-08] MEDS ORDERED: Fluconazole 100 MG Tab PO ONE (19:40)
[2024-09-09 03:26] VITALS: BP 140/72
[2024-09-09 05:42] LABS: Hematocrit 34.8 % (33.0-51.0); Hemoglobin 10.4 g/dL (11.5-16.0); Mean Corpuscular HGB 26.5 pg (26.0-34.0); Mean Corpuscular HGB Conc 29.9 g/dL (31.5-36.5); Mean Corpuscular Volume 89 fL (80-100); Mean Platelet Volume 9.6 fL (9.1-12.4); Platelet Count 251 K/mm3 (150-400); RDW Coefficient Variation 16.5 % (11.7-14.2); RDW Standard Deviation 52.5 fL (35.1-46.3); Red Blood Cell Count 3.93 M/mm3 (3.80-5.20); White Blood Cell Count 9.61 K/mm3 (4.00-11.30)
[2024-09-09 06:24] LABS: Bun/Creatinine Ratio 13.2 (12.0-20.0); Calcium, Blood 9.4 mg/dL (8.5-10.1); Creatinine, Blood 0.83 mg/dL (0.40-1.00); Potassium, Blood 4.3 mmol/L (3.5-5.5)
[2024-09-09 07:32] VITALS: BP 156/76
--- NOTE | 2024-09-09 07:41 | NUR ---
APPROX 0730 DR. PEREZ NOTIFIED OF ELEVATED BP. PER , EMAR WILL BE UPDATED.
[2024-09-09 15:38] VITALS: BP 144/81
[2024-09-09 15:55] LABS: Vancomycin, Trough 14.7 ug/mL (5.0-10.0)
--- NOTE | 2024-09-09 16:43 | NUR ---
SUMMARY NO ACUTE CHANGES THIS SHIFT. PT HOPING TO GO HOME HOWEVER STILL PENDING SENSITIVITY RESULTS. PT IN GOOD SPIRITS. PT SHOWERED AND DRESSINGS WERE CHANGED ORDERED. SCANT AMOUNT OF SEROUS DRAINAGE NOTED. 3L NC AND 3L BLEED IN TO BIPAP. ABLE TO MAKE NEEDS KNOWN. INDEPENDENT IN THE ROOM.
--- NOTE | 2024-09-09 17:42 | NUR ---
PT VANCOMYCIN INFILTRATE. THIS RN CALLED TO BEDSIDE DUE TO PT FEELING ITCHING SENSATION NEAR IV SITE. NOTICED LARGE INFILTRATION, STOPPED INFUSION AND REMOVED IV. ELEVATED LIMB AND PLACE COLD COMPRESS ON AREA. NOTIFIED PHARMACIST, PER PHARMACIST NOTHING MORE NEEDS TO BED DONE AT THIS TIME. WILL NEED TO WATCH FOR REDNESS RADIATING OUT FROM INFILTRATE SITE. AND INCREASED PAIN. RN TO CALL PHARMACIST IF THIS OCCURS FOR FURTHER INSTRUCTION
[2024-09-09 21:37] VITALS: BP 147/83
[2024-09-10 03:32] VITALS: BP 121/53
--- NOTE | 2024-09-10 04:52 | NUR ---
NOC SUMMARY- PT HAD POWERGLIDE PLACED THIS SHIFT. PT VANCO RESTARTED. PHARMACY AWARE VANCO RESTARTED. PT HAD NO OTHER ISSUES. PT HAS BEEN RESTING WITH CPAP ON. PT ON CONT. SPO2. >90%. PT VOIDING WELL. AND DRINKING PO FLUIDS. CALL LIGHT IN REACH.
[2024-09-10] MEDS ORDERED: Piperacillin/Tazobactam Sod 3.375 GM in NS 100 ML IV SCH (06:00)
[2024-09-10 07:36] VITALS: BP 138/71
[2024-09-10] MEDS ORDERED: AMOCLA875 PO (10:33)
[2024-09-10] MEDS ORDERED: DOCU100 PO (10:35)
[2024-09-10] MEDS ORDERED: DILT120 PO (10:35)
[2024-09-10] MEDS ORDERED: LINE600 PO (10:37)
[2024-09-10] MEDS ORDERED: VISBIOME 112.51 EACH PO (10:37)
[2024-09-10] MEDS ORDERED: NYSTOP15 GM TOP (10:39)
[2024-09-10] MEDS ORDERED: NASAL SPRAY88 ML NS (10:41)
--- NOTE | 2024-09-10 14:22 | NUR ---
DR PEREZ GAVE DISCHARGE ORDERS THIS MORNING, ORDERS IMPLEMENTED. PT DOING WELL THIS AM, UNDERSTANDS DISCHARGE ORDERS, RIGHT CHEST DRESSING CDI AND WILL BE CHANGED BY PT WHEN SHE ARRIVES HOME. PATRICK WAS DCED.
== END 2024-09-10 11:51 | disposition home or self-care (01) | DRG 853 ==
LOC: ER 06:11 → MEDS 06:12 → ICUE 09-07 11:49 → MEDS 09-07 13:40 → ICUE 09-08 10:30 → MEDS 09-08 14:41
PROVIDERS: Internal Medicine; Student in an Organized Health Care Education/Training Program; ADMIT Internal Medicine
PROC: 3E03329 Introduction of Other Anti-infective into Peripheral Vein, Percutaneous Approach (ICD-10-PCS; 2024-08-27)
PROC: 5A09357 Assistance with Respiratory Ventilation, Less than 24 Consecutive Hours, Continuous Positive Airway Pressure (ICD-10-PCS; 2024-08-27)
PROC: 0H9T0ZZ Drainage of Right Breast, Open Approach (ICD-10-PCS; principal; 2024-08-29)
PROC: B246ZZ4 Ultrasonography of Right and Left Heart, Transesophageal (ICD-10-PCS; 2024-09-08)
DX: A41.59 Other Gram-negative sepsis (principal); D66 Hereditary factor VIII deficiency; I50.32 Chronic diastolic (congestive) heart failure; L03.313 Cellulitis of chest wall; J96.11 Chronic respiratory failure with hypoxia; Z68.43 Body mass index [BMI] 50.0-59.9, adult; A41.89 Other specified sepsis; N61.1 Abscess of the breast and nipple; M06.9 Rheumatoid arthritis, unspecified; Z66 Do not resuscitate; E11.9 Type 2 diabetes mellitus without complications; J44.9 Chronic obstructive pulmonary disease, unspecified; I11.0 Hypertensive heart disease with heart failure; M10.9 Gout, unspecified; B37.31 Acute candidiasis of vulva and vagina; G47.33 Obstructive sleep apnea (adult) (pediatric); F41.8 Other specified anxiety disorders; I25.10 Atherosclerotic heart disease of native coronary artery without angina pectoris; E66.9 Obesity, unspecified; I27.20 Pulmonary hypertension, unspecified; K21.9 Gastro-esophageal reflux disease without esophagitis; Z99.81 Dependence on supplemental oxygen; Z95.3 Presence of xenogenic heart valve; Z88.8 Allergy status to other drugs, medicaments and biological substances; Z88.5 Allergy status to narcotic agent; Z79.4 Long term (current) use of insulin; Z79.85 Long-term (current) use of injectable non-insulin antidiabetic drugs; I25.2 Old myocardial infarction; Z87.891 Personal history of nicotine dependence; Z79.69 Long term (current) use of other immunomodulators and immunosuppressants
CPT/HCPCS: 0202U; 36415; 71046; 71260; 76604; 80048; 80202; 82947; 83735; 83880; 84439; 84443; 84484; 85025; 85027; 85379; 87040; 87070; 87075; 87077; 87185; 87186; 87205; 93005; 93010; 93306; 93312; 93325; 94640; 94664; 94760; 94762; 96361; 96374; 96376; 99285-25; A9270; C1751; G0378; J0696; J1650; J1815; J2405; J2543; J2704; J3370; J7030; J7040; J7050; Q9967

== ENCOUNTER 2024-09-23 03:13 | Day surgery (SDC) | payer OTHER ==
[~2024-09-23 03:13] MED LIST changes: +AMOCLA875 PO; +DILT120 PO; +DOCU100 PO; +FURO40 PO; +LEFL20 PO; +LINE600 PO; +MOUNJARO7.5 MG/0.5 SC; +NASAL SPRAY88 ML NS; +NYSTOP15 GM TOP; +POTASSIUM99 M3 PO; +VISBIOME 112.51 EACH PO; +XYZAL5 MG PO; +[UNRECOGNIZED DRUG - REMARK] PO
== END 2024-09-23 23:00 | disposition home or self-care (01) ==
LOC: WOUND 03:13
DX: E11.621 Type 2 diabetes mellitus with foot ulcer (principal); L97.522 Non-pressure chronic ulcer of other part of left foot with fat layer exposed; J44.9 Chronic obstructive pulmonary disease, unspecified; E11.21 Type 2 diabetes mellitus with diabetic nephropathy; E11.65 Type 2 diabetes mellitus with hyperglycemia; Z99.81 Dependence on supplemental oxygen
CPT/HCPCS: G0463

== ENCOUNTER 2024-09-30 02:15 | Inpatient (IN) | payer OTHER ==
[2024-09-30] VITALS (36 sets, daily range): BP systolic 74–145; BP diastolic 50–133
[~2024-09-30] VITALS: Ht 165.1 cm; Wt 125.8 kg
[2024-09-30 02:40] LABS: BASOPHILS ABSOLUTE AUTO 0.07 K/mm3 (0.00-0.23); BASOPHILS PERCENT AUTO 0 % (0-2); EOSINOPHILS ABSOLUTE AUTO 0.03 K/mm3 (0.00-0.68); EOSINOPHILS PERCENT AUTO 0 % (0-6); Hematocrit 35.9 % (33.0-51.0); Hemoglobin 11.3 g/dL (11.5-16.0); IMMATURE GRAN ABSOLUTE AUTO 0.15 K/mm3 (0.00-0.10); IMMATURE GRAN PERCENT AUTO 1 % (0-1); LYMPHOCYTES ABSOLUTE AUTO 0.35 K/mm3 (0.84-5.20); LYMPHOCYTES PERCENT AUTO 2 % (21-46); MONOCYTES ABSOLUTE AUTO 0.45 K/mm3 (0.16-1.47); MONOCYTES PERCENT AUTO 2 % (4-13); Mean Corpuscular HGB 26.5 pg (26.0-34.0); Mean Corpuscular HGB Conc 31.5 g/dL (31.5-36.5); Mean Corpuscular Volume 84 fL (80-100); Mean Platelet Volume 10.4 fL (9.1-12.4); NEUTROPHILS PERCENT AUTO 95 % (41-73); Platelet Count 162 K/mm3 (150-400); RDW Coefficient Variation 16.1 % (11.7-14.2); RDW Standard Deviation 49.9 fL (35.1-46.3); Red Blood Cell Count 4.27 M/mm3 (3.80-5.20); White Blood Cell Count 19.25 K/mm3 (4.00-11.30)
[2024-09-30] MEDS ORDERED: NS 1,000 ML IV SCH ×3 (02:40→05:05)
[2024-09-30] MEDS ORDERED: Acetaminophen 500 MG Tab PO ONE (02:40)
[2024-09-30 02:56] LABS: Albumin/Globulin Ratio 0.7 (0.8-1.8); Bilirubin, Total 0.9 mg/dL (0.1-1.0); Bun/Creatinine Ratio 22.8 (12.0-20.0); Calcium, Blood 8.9 mg/dL (8.5-10.1); Creatinine, Blood 1.36 mg/dL (0.40-1.00); Globulin, Blood 4.1 g/dL (2.2-4.0); Potassium, Blood 3.6 mmol/L (3.5-5.5); Total Protein, Blood 7.1 g/dL (6.4-8.2)
[2024-09-30] MEDS ORDERED: Cefepime HCl 2,000 MG in NS 100 ML IV ONE (03:25)
[2024-09-30] MEDS ORDERED: Vancomycin HCL 2,500 MG in NS 500 ML IV ONE (03:50)
[2024-09-30 04:50] LABS: Source, Urine Straight Cath
[2024-09-30 04:53] LABS: Blood, Urine 2+ (Neg); Glucose Qualitative, Urine Neg (Neg); Ketones, Urine Neg (Neg); Leukocyte Esterase, Urine 3+ (Neg); Nitrite, Urine Neg (Neg); Protein, Urine 2+ (Neg); Specific Gravity, Urine 1.025 (1.003-1.022); Urobilinogen, Urine 2+ (Normal)
[2024-09-30 05:32] LABS: Appearance, Urine Hazy (Clear); Bilirubin, Urine 1+ (Neg); Color, Urine Amber (P-Yellow)
[2024-09-30 05:33] LABS: Amorphous Heavy (0-Heavy); Bacteria Mod /hpf; Red Blood Cells, Urine 0-2 /hpf (0-2); Squamous Epithelial Cells Few /hpf (Few)
[2024-09-30 05:34] LABS: WBC Cast 0-2 /lpf (0)
[2024-09-30] MEDS ORDERED: NS 1,000 ML IV ONE (05:45)
[2024-09-30] MEDS ORDERED: Ondansetron HCl 2 MG / ML 2ML Vial IV PRN (05:45)
[2024-09-30] MEDS ORDERED: FLU VACC TS2024-25(6MOS UP)/PF 45 MCG/0.5 ML SYRINGE IM ONE (05:45)
[2024-09-30 06:23] LABS: Influenza A, PCR NEGATIVE (NEGATIVE); Influenza B, PCR NEGATIVE (NEGATIVE); Resp Syncytial Virus, PCR NEGATIVE (NEGATIVE); SARS-Cov-2 (COVID-19) PCR, MMC NEGATIVE (NEGATIVE)
[2024-09-30] MEDS ORDERED: Pantoprazole Sodium 40 MG Tab PO SCH (07:30)
[2024-09-30] MEDS ORDERED: Insulin Human Lispro 100 Units/ML 3ML Syringe SC SCH ×5 (07:30→21:00)
--- NOTE | 2024-09-30 08:35 | NUR ---
ARRIVAL TO UNIT AND RESPIRATORY DISTRESS AND WOUND NOTIFICATION: PATIENT ARRIVED TO UNIT AROUND 0808. PATIENT ALERT AND ORIENTED X4. PATIENT IMPULSIVE. PATIENT WAS SHORT OF BREATH AT REST. PATIENT STOOD AND USED BSC. PATIENT THEN STOOD AND WENT TO THE BED. DURING INITIAL ASSESSMENT, PATIENT'S SHORTNESS OF BREATH DID NOT RESOLVE. PATIENT ON HER HOME 4L VIA NC. SPO2 >96%. PATIENT REPORTED THAT SHE WOULD USE HER HOME BIPAP IF SHE WERE AT HOME. DISCUSSED WITH DR. GRACE. NEW ORDERS FOR BIPAP AND FURSEMIDE. PATIENT'S BP STABLE WITH MAPS >65. HR IN THE 100S. PATIENT DENIED CHEST PAIN OR PRESSURE. PATIENT REPORTED HEADACHE. PATIENT HAS A SCRAPE ON HER LEFT KNEE, A STAPLED LACERATION ON HER HEAD, A DIABETIC ULCER ON THE UNDERSIDE OF HER LEFT GREAT TOE AND A REDDENED AREA ON HER COCCYX. DR. GRACE NOTIFIED.
[2024-09-30] MEDS ORDERED: Acetaminophen 325 MG TABLET PO PRN (08:40)
[2024-09-30] MEDS ORDERED: Enoxaparin 40 MG/0.4 ML SYR SC SCH (09:00)
[2024-09-30] MEDS ORDERED: Furosemide 10 MG / ML 2ML Vial IV SCH (09:00)
[2024-09-30] MEDS ORDERED: Furosemide 10 MG / ML 2ML Vial IV ONE (11:20)
[2024-09-30] MEDS ORDERED: [UNRECOGNIZED DRUG - REMARK] INH SCH (11:25)
[2024-09-30] MEDS ORDERED: Mometasone/Formoterol MDI 200/5 mcg 13 GM INH SCH (11:40)
[2024-09-30] MEDS ORDERED: Ipratropium/Albuterol SulF 2.5-0.5MG/3 ML Amp INH PRN (11:40)
[2024-09-30 11:58] LABS: Base Excess Venous -7.3 mmol/L; Bicarbonate Venous 19.7 mmol/L (24.0-30.0); PCO2 Venous 23.9 mmHg (38-42); pH Blood Venous 7.45 (7.34-7.37)
[2024-09-30] MEDS ORDERED: OZEMPIC0.25 MG/02 SC (12:23)
[2024-09-30] MEDS ORDERED: ZEBUTAL 50-3251 EA10 PO (12:24)
[2024-09-30] MEDS ORDERED: Acetamin/Butalbital/Caffeine Tab PO PRN (12:55)
--- NOTE | 2024-09-30 14:20 | NUR ---
TELEPHONE CALL TO DR. YOUNG REGARDING ARRYTHMIAS PER CASINO ENFORCEMENT AGENT. DR. YOUNG TO REVIEW.
[2024-09-30 15:01] LABS: Magnesium, Blood 1.8 mg/dL (1.6-2.4)
[2024-09-30 15:12] LABS: Free Thyroxine 1.64 ng/dL (0.70-1.60); Thyroid Stimulating Hormone 0.006 uIU/mL (0.360-4.800); Triiodothyronine, Free 1.94 pg/mL (2.18-3.98)
[2024-09-30 15:13] LABS: Bun/Creatinine Ratio 24.3 (12.0-20.0); Calcium, Blood 8.7 mg/dL (8.5-10.1); Creatinine, Blood 1.48 mg/dL (0.40-1.00)
[2024-09-30] MEDS ORDERED: Propranolol HCL 20 MG TAB PO SCH (16:00)
[2024-09-30] MEDS ORDERED: Cefepime HCl 1,000 MG in NS 100 ML IV SCH (16:00)
[2024-09-30] MEDS ORDERED: HYDROCORTISONE SOD SUCCINATE IV ONE (16:10)
[2024-09-30] MEDS ORDERED: NS IV ONE (16:10)
--- NOTE | 2024-09-30 16:45 | NUR ---
STATUS THROUGHOUT THE DAY AND TRANSFER TO ICU: AFTER BEING ON THE BIPAP FOR A COUPLE OF HOURS, PATIENT'S RR CONTINUED TO BE ELEVATED. PATIENT BECAME MORE IMPULSIVE WITH TAKING THE MASK OFF AND ATTEMPTING TO SIT UP. VBGS DRAWN AND RESULTS PROVIDED TO DR. YOUNG. PATIENT REPORTED THAT SHE FELT THE SAME, BUT PATIENT APPEARED WORSE. PATIENT HAD MINIMAL URINE OUTPUT RESPONSE TO IV FUROSEMIDE. PATIENT DEVELOPED MILD SHAKES AND WAS INCREASINGLY FATIGUED. NO CHANGES NOTED TO LUNG SOUNDS (DIMINISHED WITH FINE CRACKLES IN BASES). PATIENT ABLE TO STAND AND TRANSFER FROM BSC TO BED IN THE MORNING, BUT HAD DIFFICULTY HOLDING HERSELF UP IN THE BED BY THE EARLY AFTERNOON. CONTINUED TO UPDATE AND DISCUSS SITUATION WITH DR. YOUNG AND DR. GRACE. MID TO LATE AFTERNOON, PATIENT'S HR INCREASED INTO THE 130S, SINUS TACH. BLOOD PRESSURES AND SPO2 CONTINUED TO BE STABLE. MID AFTERNOON, PATIENT HAD A RUN OF SVT HIGH 300 BPM AND A RUN OF VTACH. HECTOR HERRERA NOTIFIED. BY LATE AFTERNOON, THE DECISION WAS MADE TO TRANSFER THE PATIENT TO ICU. REPORT GIVEN TO BARBI CROWLEY AND PATIENT'S SON LEROY NOTIFIED OF TRANSFER.
[2024-09-30] MEDS ORDERED: LORazepam 2 MG/ML 1ML Injection IV ONE ×2 (17:05→18:20)
[2024-09-30 17:38] LABS: C DIFFICILE DNA NEGATIVE (Negative)
[2024-09-30] MEDS ORDERED: Mag Sulfate 1 GM/D5% 100ML 100 ML IV STA (17:50)
[2024-09-30] MEDS ORDERED: Furosemide 10 MG/ML 4ML Vial IV SCH ×2 (18:00)
[2024-09-30] MEDS ORDERED: POTASSIUM IODIDE PO SCH (18:00)
[2024-09-30] MEDS ORDERED: Cholestyramine/Aspartame 4 GM Packet PO SCH (18:00)
[2024-09-30] MEDS ORDERED: LORazepam 2 MG/ML 1ML Injection ONE (18:17)
--- NOTE | 2024-09-30 18:43 | NUR ---
SHIFT SUMMARY PT ARRIVED TO ICU FROM PCU, TRANSFERRED TO BED VIA SLIDER SHEET. PT A&OX4 UPON ARRIVAL. PT EXTREMELY ANXIOUS & TACHYPNEIC, LIPS BLUE, ON BIPAP INITIALLY BUT NOT TOLERATING, PULLING BIPAP OFF, MEDICATED WITH 0.5MG ATIVAN X 2 FOR ANXIETY WHICH MILDLY HELPED. GIVING BREAKS FROM BIPAP WITH 2-4LPM O2 VIA NC. 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 PUREWICK IN PLACE. NO BM. PHYSICIAN AT BEDSIDE SHORTLY AFTER ADMIT, UPDATED REGARDING PTS ANXIETY, NEW ORDERS GIVEN.
[2024-09-30] MEDS ORDERED: LORazepam 2 MG/ML 1ML Injection IV PRN (18:55)
[2024-09-30] MEDS ORDERED: NS 250 ML IV ONE (19:15)
[2024-09-30] MEDS ORDERED: Insulin Glargine-Yfgn 100 Unit/mL 3 ML SYR SC SCH ×3 (21:00)
[2024-09-30] MEDS ORDERED: ClonazePAM 0.5 MG Tab PO SCH (21:00)
[2024-09-30] MEDS ORDERED: Lactobacil 2-S.Thermo-Bifido 1 1 Cap PO SCH (21:00)
[2024-09-30 21:41] LABS: Vancomycin, Random 18.5 ug/mL
--- NOTE | 2024-09-30 21:49 | NUR ---
ASSUMPTION OF CARE ASSUMED CARE OF PATIENT AT 1900, BEDSIDE SHIFT REPORT RECEIVED FROM DAYSHIFT RN. PT RESTING IN BED, SLEEPING BUT AROUSABLE TO VERBAL STIMULI. PT ANSWERS QUESTIONS APPROPRIATELY, VOICE SOFT, FOLLOWS DIRECTION WHEN PROMPTED, MOVES EXTREMITIES EQUALLY BILATERALLY. PT DENIES PAIN AT TIME OF ASSESSMENT. HR 100-110'S SINUS, BP SOFT, SBP 80-110'S, PT GIVEN 250ML BOLUS OF NS WITH GOOD EFFECT. PT DENIES CP/PRESSURE. PT ON BIPAP 14/10 30%, OXYGEN SATURATION >95%. PT SWITCHED TO NC @ 4LPM DURING ASSESSMENT AND FOR MEDICATION ADMINISTRATION, OXYGEN SATURATION >92%. ABDOMEN SOFT AND ROUND, BOWEL TONES ACTIVE THROUGHOUT. PT DENIES N/V. PUREWICK AND ATTENDS IN PLACE. PIV IN PLACE TO LFA AND LAC SL. BED IN LOWEST POSITION, CALL LIGHT WITHIN REACH, CARE CONTINUES.
[2024-09-30] MEDS ORDERED: Vancomycin HCL 1,500 MG in NS 250 ML IV ONE (22:05)
[2024-10-01] VITALS (48 sets, daily range): BP systolic 92–145; BP diastolic 60–118
[2024-10-01] MEDS ORDERED: Hydrocortisone Sod Succinate 100 MG Vial IV SCH
[2024-10-01 03:42] LABS: Hematocrit 34.1 % (33.0-51.0); Hemoglobin 10.6 g/dL (11.5-16.0); Mean Corpuscular HGB 26.2 pg (26.0-34.0); Mean Corpuscular HGB Conc 31.1 g/dL (31.5-36.5); Mean Corpuscular Volume 84 fL (80-100); Platelet Count 93 K/mm3 (150-400); RDW Coefficient Variation 16.4 % (11.7-14.2); RDW Standard Deviation 50.7 fL (35.1-46.3); Red Blood Cell Count 4.04 M/mm3 (3.80-5.20); White Blood Cell Count 13.99 K/mm3 (4.00-11.30)
[2024-10-01 04:14] LABS: Albumin, Blood 2.6 g/dL (3.4-5.0); Albumin/Globulin Ratio 0.7 (0.8-1.8); Bilirubin, Total 0.8 mg/dL (0.1-1.0); Bun/Creatinine Ratio 28.1 (12.0-20.0); Calcium, Blood 8.1 mg/dL (8.5-10.1); Creatinine, Blood 1.78 mg/dL (0.40-1.00); Free Thyroxine 1.53 ng/dL (0.70-1.60); Globulin, Blood 3.8 g/dL (2.2-4.0); Potassium, Blood 4.5 mmol/L (3.5-5.5); Total Protein, Blood 6.4 g/dL (6.4-8.2)
[2024-10-01 04:28] LABS: BAND PERCENT MAN 22 % (0-8); BASOPHILS PERCENT MAN 0 % (0-2); EOSINOPHILS PERCENT MAN 0 % (0-6); LYMPHOCYTES ABSOLUTE MAN 0.97 K/mm3 (0.84-5.20); LYMPHOCYTES PERCENT MAN 7 % (21-46); MONOCYTES ABSOLUTE MAN 0.27 K/mm3 (0.16-1.47); MONOCYTES PERCENT MAN 2 % (4-13); NEUTROPHILS ABSOLUTE MAN 12.73 K/mm3 (1.96-9.15); SEG NEUTROPHILS PERCENT MAN 69 % (41-73); TOTAL CELLS COUNTED 1002
--- NOTE | 2024-10-01 05:48 | NUR ---
SHIFT SUMMARY NO ACUTE CHANGES THIS SHIFT. PT CONTINUES TO REST IN BED, SLEEPING BUT AROUSABLE. PT ANSWERS QUESTIONS APPROPRIATELY, FOLLOWS DIRECTION WHEN PROMPTED AND IS ABLE TO MAKE HER NEEDS KNOWN. PT MOVES EXTREMITIES EQUALLY BILATERALLY. HR 70-110'S SINUS, PT ORIGINALLY HYPOTENSIVE AT BEGINNING OF SHIFT, BOLUS GIVEN PER EMAR. SBP NOW 100-120'S, MAP >65. PT DENIES CP/PRESSURE. PT ALTERNATING BETWEEN BIPAP 14/10 30% AND NC AT 4LPM, OXYGEN SATURATION >92%. ABDOMEN SOFT, BOWEL TONES ACTIVE THROUGHOUT, PT PLACED ON BEDPAN ONCE THIS SHIFT WITH NO OUTPUT. PUREWICK AND ATTENDS IN PLACE. PIV IN PLACE TO LEFT WRIST AND LAC. BED IN LOWEST POSITION, CALL LIGHT WITHIN REACH, CARE CONTINUES.
[2024-10-01] MEDS ORDERED: Lactated Ringer's 1,000 ML IV SCH (16:00)
--- NOTE | 2024-10-01 17:51 | NUR ---
BENIGNO HAS BEEN ON AND OFF THE CPAP THROUGHOUT THE DAY. SHE IS ABLE TO TAKE OFF HER CPAP AND PLACE NASAL CANNULA ON. SHE HAS NOT HAD ANY APPETITE, TAKING IN WATER AND THE MEDICATION. SHE HAD THE 2 BMS AND NO FURTHER URINE OUTPUT. IV FLUIDS STARTED AT 75ML/HR. HERE TO EVALUATE THE RIGHT BREAST WOUND, PLANS TO DO I/D TOMORROW. PT TO BE NPO TONIGHT AND NO LOVENOX IN THE AM. WOUND HAS HAD NO DRAINAGE TODAY, REMAINS RED AND TAUT. PT CONTINUES TO SAY THAT SHE DOESN'T FEEL WELL. WANTS TO GO HOME, BUT WANTS TO SLEEP.
[2024-10-01] MEDS ORDERED: Acetaminophen/Codeine 300-30 mg PO PRN (20:05)
[2024-10-01 21:27] LABS: Vancomycin, Random 19.6 ug/mL
[2024-10-01] MEDS ORDERED: Vancomycin HCL 1,000 MG in NS 250 ML IV ONE (21:55)
[2024-10-02] VITALS (38 sets, daily range): BP systolic 77–123; BP diastolic 50–97
[2024-10-02 00:40] LABS: TSH RECEPTOR ANTIBODY <1.10 IU/L (<=1.75)
[2024-10-02 03:29] LABS: BASOPHILS ABSOLUTE AUTO 0.04 K/mm3 (0.00-0.23); BASOPHILS PERCENT AUTO 0 % (0-2); EOSINOPHILS ABSOLUTE AUTO 0.06 K/mm3 (0.00-0.68); EOSINOPHILS PERCENT AUTO 0 % (0-6); Hemoglobin 10.7 g/dL (11.5-16.0); IMMATURE GRAN ABSOLUTE AUTO 0.12 K/mm3 (0.00-0.10); IMMATURE GRAN PERCENT AUTO 1 % (0-1); LYMPHOCYTES PERCENT AUTO 9 % (21-46); MONOCYTES ABSOLUTE AUTO 0.51 K/mm3 (0.16-1.47); MONOCYTES PERCENT AUTO 4 % (4-13); Mean Corpuscular HGB 26.1 pg (26.0-34.0); Mean Corpuscular HGB Conc 30.6 g/dL (31.5-36.5); Mean Corpuscular Volume 85 fL (80-100); Mean Platelet Volume 12.2 fL (9.1-12.4); NEUTROPHILS ABSOLUTE AUTO 11.45 K/mm3 (1.96-9.15); NEUTROPHILS PERCENT AUTO 86 % (41-73); Platelet Count 101 K/mm3 (150-400); RDW Coefficient Variation 16.6 % (11.7-14.2); RDW Standard Deviation 51.5 fL (35.1-46.3); White Blood Cell Count 13.38 K/mm3 (4.00-11.30)
[2024-10-02 06:41] LABS: Albumin, Blood 2.4 g/dL (3.4-5.0); Albumin/Globulin Ratio 0.6 (0.8-1.8); Bilirubin, Total 0.8 mg/dL (0.1-1.0); Bun/Creatinine Ratio 44.4 (12.0-20.0); Calcium, Blood 8.3 mg/dL (8.5-10.1); Creatinine, Blood 1.69 mg/dL (0.40-1.00); Free Thyroxine 1.26 ng/dL (0.70-1.60); Globulin, Blood 3.9 g/dL (2.2-4.0); Potassium, Blood 4.4 mmol/L (3.5-5.5); Total Protein, Blood 6.3 g/dL (6.4-8.2)
[2024-10-02] MEDS ORDERED: Lactated Ringer's 1,000 ML IV SCH (08:00)
[2024-10-02] MEDS ORDERED: Bupivacaine 0.5% HCl 5 MG/ML 30MLVIAL ONE (08:03)
--- NOTE | 2024-10-02 08:15 | NUR ---
PT A&OX4, FOLLOWING COMMANDS, PETE. REMAINS ON BIPAP, TAKING BREAKS WITH NC @ 2LPM. PT ONLY C/O BEING WARM, FANS AT BEDSIDE, TEMP 98.7. PT REMAINS NPO FOR PROCEDURE. PUREWICK IN PLACE, NO URINE OUT. NO BM.
[2024-10-02] MEDS ORDERED: FentaNYL Citrate 50 MCG/ML 2 ML Injection ONE (08:49)
[2024-10-02] MEDS ORDERED: Metoclopramide HCl 5MG / ML 2ML Vial ONE (08:49)
[2024-10-02] MEDS ORDERED: Ondansetron HCl 2 MG / ML 2ML Vial ONE (08:49)
[2024-10-02] MEDS ORDERED: propofoL 20 ML IV ONE ×2 (08:49→09:29)
--- NOTE | 2024-10-02 10:15 | NUR ---
UPDATE PT BACK TO ICU ROOM 3 FROM OR. PT SEDATE BUT RESPONDS TO VERBAL STIMULI. O2 SATS IN HIGH 80'S/ LOW 90'S. HYPOTENSIVE, MAP >65. PLACED ON BIPAP UPON ARRIVAL, 22/07 @ 30% c SATS >90, LSC. R BREAST INCISION SITE WITH DRESSING IN PLACE, PT DENIES PAIN.
[2024-10-02] MEDS ORDERED: Insulin Human Lispro 100 Units/ML 3ML Syringe SC SCH (11:30)
[2024-10-02] MEDS ORDERED: LORazepam 2 MG/ML 1ML Injection IV PRN (11:30)
[2024-10-02] MEDS ORDERED: Propranolol HCL 20 MG TAB PO SCH (16:00)
[2024-10-02] MEDS ORDERED: Ibuprofen 400 MG Tab PO PRN (17:30)
--- NOTE | 2024-10-02 18:27 | NUR ---
SHIFT SUMMARY PT A&OX4, FOLLOWING COMMANDS, PETE. UP TO BEDSIDE CHAIR THIS AFTERNOON WITH PHYSICAL THERAPY, AMBULATED WITH WALKER & 2 PERSON SBA. UP TO CHAIR FOR A FEW HOURS, ABLE TO AMBULATE BACK TO BED WITH WALKER AND 1 PERSON SBA. SURGICAL SITE WITH SMALL AMNT OF DRIED BLOOD, SIL IN PLACE, PT DENIES PAIN AT SITE. ON BIPAP @ 14/10 30% OR 2-3LPM VIA NC. PT TOLERATING SMALL AMOUNTS OF PO INTAKE, C/O MILD NAUSEA, NO VOMITING. SMALL LIQUID BM, PUREWICK IN PLACE.
--- NOTE | 2024-10-02 22:09 | NUR ---
THIS RN ASSUMED CARE OF PT AT 1900. PT IS ALERT AND ORIENTED X4, SHE IS A VERY PLEASANT LADY, FOLLOWS COMMANDS AND CALLS OUT APPROPRIATELY. PT HEART RATE IS IN THE 60s, BLOOD PRESSURE STABLE AT 95/66, PT DENIES CHEST PAIN. PT SOUNDS CLEAR/DIMINISHED WEARS THE BIPAP AT NIGHT AND IS COMPLIANT WITH IT, OTHERWISE WEARS 2L NC DURING THE DAY. PT DOES HAVE A SURICAL DRESSING ON RIGHT BREAST THAT IS CLEAN, DRY AND INTACT. PT HAS PUREWICK IN THAT IS WORKING WELL. NO OTHER INTERVENTIONS AT THIS TIME. PLAN OF CARE CONTINUED.
[2024-10-02 22:38] LABS: Vancomycin, Random 19.1 ug/mL
[2024-10-02] MEDS ORDERED: Vancomycin HCL 1,000 MG in NS 250 ML IV ONE (22:55)
[2024-10-03] VITALS (26 sets, daily range): BP systolic 89–121; BP diastolic 53–85
[2024-10-03 03:47] LABS: BASOPHILS ABSOLUTE AUTO 0.03 K/mm3 (0.00-0.23); BASOPHILS PERCENT AUTO 0 % (0-2); EOSINOPHILS ABSOLUTE AUTO 0.02 K/mm3 (0.00-0.68); EOSINOPHILS PERCENT AUTO 0 % (0-6); Hematocrit 33.8 % (33.0-51.0); Hemoglobin 10.6 g/dL (11.5-16.0); IMMATURE GRAN ABSOLUTE AUTO 0.11 K/mm3 (0.00-0.10); IMMATURE GRAN PERCENT AUTO 1 % (0-1); LYMPHOCYTES ABSOLUTE AUTO 1.59 K/mm3 (0.84-5.20); LYMPHOCYTES PERCENT AUTO 13 % (21-46); MONOCYTES ABSOLUTE AUTO 0.67 K/mm3 (0.16-1.47); MONOCYTES PERCENT AUTO 6 % (4-13); Mean Corpuscular HGB 25.9 pg (26.0-34.0); Mean Corpuscular HGB Conc 31.4 g/dL (31.5-36.5); Mean Corpuscular Volume 82 fL (80-100); NEUTROPHILS ABSOLUTE AUTO 9.71 K/mm3 (1.96-9.15); NEUTROPHILS PERCENT AUTO 80 % (41-73); Platelet Count 100 K/mm3 (150-400); RDW Coefficient Variation 16.4 % (11.7-14.2); RDW Standard Deviation 49.7 fL (35.1-46.3); White Blood Cell Count 12.13 K/mm3 (4.00-11.30)
[2024-10-03 04:09] LABS: Albumin, Blood 2.4 g/dL (3.4-5.0); Albumin/Globulin Ratio 0.7 (0.8-1.8); Bilirubin, Total 0.7 mg/dL (0.1-1.0); Bun/Creatinine Ratio 51.9 (12.0-20.0); Calcium, Blood 8.1 mg/dL (8.5-10.1); Creatinine, Blood 1.56 mg/dL (0.40-1.00); Free Thyroxine 1.11 ng/dL (0.70-1.60); Globulin, Blood 3.6 g/dL (2.2-4.0); Potassium, Blood 3.6 mmol/L (3.5-5.5)
--- NOTE | 2024-10-03 04:11 | NUR ---
PT SUMMARY PT IS ALERT AND ORIENTED X4, WEARING BIPAP. PT BLOOD PRESSURE WAS SOFT THROUGHOUT THE NIGHT, DR. CRAFT HAS BEEN NOTIFIED. PT BLOOD SUGAR AT 0200 WAS 80, PT BEGAN HAVING AN APPETITE AND ATE A SMALL SNACK. PT BLOOD SUGAR ON MORNING LABS WAS 85, DR. CRAFT HAS BEEN NOTIFIED. NO OTHER NEW EVENTS TO REPORT OVERNIGHT. PLAN OF CARE CONTINUED.
[2024-10-03] MEDS ORDERED: Dextrose 50% 50 ML Vial IV ONE (06:15)
--- NOTE | 2024-10-03 07:00 | NUR ---
ASSUME CARE: I have assumed care of this patient.
[2024-10-03] MEDS ORDERED: Insulin Human Lispro 100 Units/ML 3ML Syringe SC SCH (08:30)
[2024-10-03] MEDS ORDERED: Enoxaparin 40 MG/0.4 ML SYR SC SCH (09:00)
--- NOTE | 2024-10-03 12:30 | NUR ---
SEDATION VACATION: Pt's heart rate elevated into 110's, BP elevated, respiratory rate in mid 30's with SpO2 86%. Pt moving all extremities and attempting to self extubate. RN unable to redirect.
--- NOTE | 2024-10-03 15:24 | NUR ---
WOUND: Right breast surgical wound dressing changed with Dr. Kahn at bedside. Gustavo and sutures in place.
[2024-10-03] MEDS ORDERED: Oxacillin Sod 2,000 MG in NS 100 ML IV SCH (16:00)
[2024-10-03] MEDS ORDERED: SIMETH DIPHENHYDRAMINE HCL MT PRN (16:30)
[2024-10-03] MEDS ORDERED: LIDOCAINE 2% MT PRN (16:30)
[2024-10-03] MEDS ORDERED: AL HYDROX MT PRN (16:30)
[2024-10-03] MEDS ORDERED: [UNRECOGNIZED DRUG - OTHER] MT PRN (16:30)
--- NOTE | 2024-10-03 18:29 | NUR ---
SHIFT SUMMARY: Pt resting throughout the day and requesting BIPAP. Pt transitioned to home CPAP this afternoon. She was up in chair for about an hour using ceiling lift. Poor appetitie. Pure wick replaced. No BM. Right foot cold to touch with doppler pulses; Arterial duplex obtained. She was also complaining of right arm pain throughout the day. Right uppwer arm power glide removed and right venous duplex obtained. Ice applied to site; pt declines ibuprofen. Son updated on pt status via phone. Family at bedside intermittantly.
[2024-10-03] MEDS ORDERED: NS 250 ML IV PRN (20:55)
[2024-10-03] MEDS ORDERED: Insulin Glargine-Yfgn 100 Unit/mL 3 ML SYR SC SCH (21:00)
--- NOTE | 2024-10-03 21:35 | NUR ---
ASSUMED CARE OF PT AT 1900. PT RESTING ON BED, APPEARS TO BE SLEEPING W/ HOME CPAP MASK ON. ROUSES TO VERBAL STIMULI, AOX4 AND COOPERATIVE W/ CARE. LUNG SOUNDS CLEAR. O2 SATS>95%. ON CONTINUOUS AUDITING CODER, NSR RATE OF 60S. BP STABLE W/ MAP >65. PURE WICK IN PLACE AND WORKING APPROPRIATELY W/ GOOD OUTPUT. CALL LIGHT W/ IN REACH. PLAN OF CARE ONGOING.
[2024-10-04] VITALS (21 sets, daily range): BP systolic 100–148; BP diastolic 60–102
[2024-10-04 03:48] LABS: BASOPHILS ABSOLUTE AUTO 0.05 K/mm3 (0.00-0.23); BASOPHILS PERCENT AUTO 0 % (0-2); EOSINOPHILS ABSOLUTE AUTO 0.04 K/mm3 (0.00-0.68); EOSINOPHILS PERCENT AUTO 0 % (0-6); IMMATURE GRAN ABSOLUTE AUTO 0.18 K/mm3 (0.00-0.10); IMMATURE GRAN PERCENT AUTO 1 % (0-1); LYMPHOCYTES ABSOLUTE AUTO 2.18 K/mm3 (0.84-5.20); LYMPHOCYTES PERCENT AUTO 10 % (21-46); MONOCYTES ABSOLUTE AUTO 1.09 K/mm3 (0.16-1.47); MONOCYTES PERCENT AUTO 5 % (4-13); Mean Corpuscular HGB 26.4 pg (26.0-34.0); Mean Corpuscular HGB Conc 31.4 g/dL (31.5-36.5); Mean Corpuscular Volume 84 fL (80-100); NEUTROPHILS ABSOLUTE AUTO 17.79 K/mm3 (1.96-9.15); NEUTROPHILS PERCENT AUTO 84 % (41-73); NRBC ABSOLUTE 0.02 K/mm3 (0.00-0.02); NRBC Auto 0.1 /100 WBC (0.0-0.2); Platelet Count 119 K/mm3 (150-400); RDW Coefficient Variation 16.6 % (11.7-14.2); Red Blood Cell Count 4.17 M/mm3 (3.80-5.20); White Blood Cell Count 21.33 K/mm3 (4.00-11.30)
[2024-10-04 04:06] LABS: Albumin, Blood 2.5 g/dL (3.4-5.0); Albumin/Globulin Ratio 0.7 (0.8-1.8); Bilirubin, Total 0.8 mg/dL (0.1-1.0); Bun/Creatinine Ratio 48.4 (12.0-20.0); Calcium, Blood 8.6 mg/dL (8.5-10.1); Creatinine, Blood 1.28 mg/dL (0.40-1.00); Globulin, Blood 3.7 g/dL (2.2-4.0); Total Protein, Blood 6.2 g/dL (6.4-8.2)
--- NOTE | 2024-10-04 05:29 | NUR ---
END OF SHIFT SUMMARY NO ACUTE EVENTS OVERNIGHT. PT SLEPT FOR GOOD PORTION OF SHIFT. WAS ABLE TO TAKE PO MEDS W/OUT ISSUE. PT COOPERATIVE W/ CARE. PT ON HOME BIPAP MASK W/ 2L BLEED IN. MAINTAINING SATS >95%. PT GIVEN PRN BREATHING TX BY RT, C/O PHLEGM IN THROAT. ENCOURAGED TO COUGH/ USE INCENTIVE SPIROMETER. NSR ON CONTINUOUS ELEMENTARY TUTOR, RATE OF 60S. BP STABLE. NO BM THIS SHIFT. PURE WICK IN PLACE W/ GOOD OUTPUT. AFEBRILE. PT TURNED Q2 HOURS. CALL LIGHT W/ IN REACH. PLAN OF CARE ONGOING.
--- NOTE | 2024-10-04 09:00 | NUR ---
ASSUMED CARE PT IS RESTING IN BED, AWAKENS TO VERBAL STIMULI. A&OX4. ON 2L NC, SATS > 94%. ON SCALE EXPERT, NSR HR 60'S, BP STABLE. PURWICK IN PLACE AND PATENT. TKO INFUSING TO BRIAN LIM. RN GAVE BEDSIDE REPORT, NO CONCERNS NEEDING ADDRESSED AT THIS TIME. PT HAS CALL LIGHT IN REACH.
--- NOTE | 2024-10-04 12:43 | NUR ---
TRANSFER TO PCU PT A&OX4, ON 2L NC W/ SATS IN THE 90'S. ON MEDICAL EDITOR, NSR HR 60'S, MAPS > 65. PUREWICK AND ATTENDS IN PLACE. DRESSING IN PLACE OVER SIL DRAIN UNDER R BREAST. NO ACUTE EVENTS. TRANSPORTED TO PCU VIA BED W/ 2 PCU CNAS. PT BELONGINGS SENT WITH PT.
--- NOTE | 2024-10-04 13:47 | NUR ---
assumption of care patient arrived to pcu at approx 1250. patient transfered to pcu bed via slider sheet. vital signs stable. patient is alert and oriented x4. patient is able to make needs known and uses call light appropriately. patient denies pain, chest pain/pressure or shortness of breath. see shift assessment for further detials. dressing changed on right breast with may drain. plan is up to date
--- NOTE | 2024-10-04 13:50 | NUR ---
positive blood cultures this rn called md mendez to report positive blood cultures with gram positive cocci clusters.
--- NOTE | 2024-10-04 17:30 | NUR ---
shift summary no acute changes throughout this shift. vitals remain stable. no acute changes. plan ramains up to date.
--- NOTE | 2024-10-04 17:43 | NUR ---
wound care wound care done and dressings changed
[2024-10-04] MEDS ORDERED: Insulin Glargine-Yfgn 100 Unit/mL 3 ML SYR SC SCH (21:00)
[2024-10-05] VITALS (7 sets, daily range): BP systolic 102–128; BP diastolic 69–80
[2024-10-05 04:45] LABS: BASOPHILS ABSOLUTE AUTO 0.09 K/mm3 (0.00-0.23); BASOPHILS PERCENT AUTO 0 % (0-2); EOSINOPHILS ABSOLUTE AUTO 0.11 K/mm3 (0.00-0.68); EOSINOPHILS PERCENT AUTO 1 % (0-6); Hematocrit 38.7 % (33.0-51.0); Hemoglobin 11.7 g/dL (11.5-16.0); IMMATURE GRAN ABSOLUTE AUTO 0.39 K/mm3 (0.00-0.10); IMMATURE GRAN PERCENT AUTO 2 % (0-1); LYMPHOCYTES ABSOLUTE AUTO 2.28 K/mm3 (0.84-5.20); LYMPHOCYTES PERCENT AUTO 9 % (21-46); MONOCYTES ABSOLUTE AUTO 1.45 K/mm3 (0.16-1.47); MONOCYTES PERCENT AUTO 6 % (4-13); Mean Corpuscular HGB 26.2 pg (26.0-34.0); Mean Corpuscular HGB Conc 30.2 g/dL (31.5-36.5); Mean Corpuscular Volume 87 fL (80-100); Mean Platelet Volume 12.2 fL (9.1-12.4); NEUTROPHILS ABSOLUTE AUTO 19.95 K/mm3 (1.96-9.15); NEUTROPHILS PERCENT AUTO 82 % (41-73); NRBC ABSOLUTE 0.05 K/mm3 (0.00-0.02); NRBC Auto 0.2 /100 WBC (0.0-0.2); Platelet Count 137 K/mm3 (150-400); RDW Coefficient Variation 16.7 % (11.7-14.2); RDW Standard Deviation 52.9 fL (35.1-46.3); Red Blood Cell Count 4.46 M/mm3 (3.80-5.20); White Blood Cell Count 24.27 K/mm3 (4.00-11.30)
--- NOTE | 2024-10-05 05:19 | NUR ---
SHIFT SUMMARY ASSUMED CARE OF PT AT 1900. PT IS A/OX4. PT VERY SLEEPY AND SOMULENT. HEART SOUNDS REGULAR. LUNG SOUNDS CLEAR. PT REMAINED ON 4L WITH CPAP WHILE SLEEPING. PT TURNED Q2. PT A 2P ROLL. PT DOES NOT ASSIST WITH ROLLING. WICKING SYSTEM IN PLACE DUE TO PT INCONTIENCE.
[2024-10-05 05:42] LABS: Albumin, Blood 2.3 g/dL (3.4-5.0); Albumin/Globulin Ratio 0.6 (0.8-1.8); Calcium, Blood 8.4 mg/dL (8.5-10.1); Free Thyroxine 1.13 ng/dL (0.70-1.60); Globulin, Blood 3.8 g/dL (2.2-4.0); Potassium, Blood 4.4 mmol/L (3.5-5.5); Total Protein, Blood 6.1 g/dL (6.4-8.2)
--- NOTE | 2024-10-05 07:26 | NUR ---
ASSUMED CARE OF PATIENT. PATIENT DROWSY, BUT PARTICIPATED IN BEDSIDR REPORT. O2 @ 2LPM/NC. REQUESTED TO GO BACK ON CPAP. SURGICAL SITE BENEATH RIGHT BREAST AND DIABEIC ULCER LEFT GREAT PLANTAR TOE VISUALIZED. TELE SB, FDAVB, BBB, PVC @ 65.
--- NOTE | 2024-10-05 11:27 | NUR ---
PT REQUESTED ASSISTANCE WITH APPLYING BIPAP.
--- NOTE | 2024-10-05 11:54 | NUR ---
PATIENT'S BOTHER, DANIELA, PROVIDED WITH UPDATE PER PATIENT AND BROTHER'S REQUEST.
--- NOTE | 2024-10-05 16:13 | NUR ---
DR LITA LONGO SS. PER Cary VALVERDE TO SAIMA AC GLUCOSE CHECK AND CHECK ONCE NIGHTLY BEFORE ADMINISTERING GLARGINE.
[2024-10-05] MEDS ORDERED: RIFAMPIN IV SCH (17:30)
[2024-10-05] MEDS ORDERED: NS IV SCH ×2 (17:30→18:00)
[2024-10-05] MEDS ORDERED: GENTAMICIN SULFATE IV SCH (18:00)
--- NOTE | 2024-10-05 18:01 | NUR ---
END OF SHIFT SUMMARY: A&Ox4. PLEASANT AND COOPERATIVE WITH MOST CARE, THOUGH REFUSED ANY PHYSICAL ACTIVITY INCLUDING GETTING UP TO HER CHAIR OR EXERCISING. CALLS APPROPRIATELY AND IS ABLE TO ADVOCATE NEEDS EFFECTIVELY. PUREWICK DRAINING YELLOW URINE TO SUCTION. MEDS WHOLE WITH FLUIDS. C / O PAIN IN LOW BACK/SACRUM. RECOMMEND ENGAGING IN EXERCISE ACTIVITIES, BUT STATED SHE DID NOT FEEL WELL DOING THIS; REPOSITION ASSISTANCE WITH PILLOWS PROVIDED. MAINTAINING SPO2 >88% ON 2LPM/NC AND BiPap WHEN SLEEPING. BROTHER TO BEDSIDE TO VISIT.SHORT-ACTING INSULIN DCd D/T NOT NEEDING. PG BRIAN FLUSHES AND DRAWS. PLAN FOR DC TO SNF FOR x6 WEEKS IV ABT; PENDING INSURANCE AUTHORIZATION. ADDITION OF IV RIFAMPIN AND GENTAMICIN THIS EVENING. BED IN LOWEST POSITION, CALL LIGHT WITHIN REACH, ALL NEEDS MET. REPORT TO ONCOMING NURSE.
--- NOTE | 2024-10-06 03:47 | NUR ---
CHILDREN'S MINISTER SUMMARY VSS. ACCUCHECK AT HS WAS 156, COVERAGE GIVEN. CONTINUES TO RECEIVE ANTIBIOTICS AROUND THE CLOCK - SEE MAR FOR DETAILS. AFFECT AMBIVALENT TO CARE. ENCOURAGED TO PARTICIPATE IN CARE BUT CONTINUES TO REMAIN AMBIVALENT. IN BED RESTING QUIETLY WITH FEW INTERRUPTIONS. HOB ELEVATED AND BIPAP WITH O2 BLEED IN - O2 SATS OVER 90%. REPOSITIONED ABOUT EVERY 2 HRS. CALL LIGHT IN REACH, RAILS UP X 2 AND BED IN LOW POSITION FOR SAFETY. WILL CONTINUE TO MONITOR
[2024-10-06 04:44] VITALS: BP 119/73
[2024-10-06 04:54] LABS: BASOPHILS ABSOLUTE AUTO 0.06 K/mm3 (0.00-0.23); BASOPHILS PERCENT AUTO 0 % (0-2); EOSINOPHILS ABSOLUTE AUTO 0.19 K/mm3 (0.00-0.68); EOSINOPHILS PERCENT AUTO 1 % (0-6); Hematocrit 37.6 % (33.0-51.0); Hemoglobin 11.1 g/dL (11.5-16.0); IMMATURE GRAN ABSOLUTE AUTO 0.33 K/mm3 (0.00-0.10); IMMATURE GRAN PERCENT AUTO 2 % (0-1); LYMPHOCYTES ABSOLUTE AUTO 2.22 K/mm3 (0.84-5.20); LYMPHOCYTES PERCENT AUTO 14 % (21-46); MONOCYTES ABSOLUTE AUTO 1.13 K/mm3 (0.16-1.47); MONOCYTES PERCENT AUTO 7 % (4-13); Mean Corpuscular HGB Conc 29.5 g/dL (31.5-36.5); Mean Corpuscular Volume 88 fL (80-100); Mean Platelet Volume 12.7 fL (9.1-12.4); NEUTROPHILS ABSOLUTE AUTO 12.07 K/mm3 (1.96-9.15); NEUTROPHILS PERCENT AUTO 75 % (41-73); NRBC ABSOLUTE 0.03 K/mm3 (0.00-0.02); NRBC Auto 0.2 /100 WBC (0.0-0.2); Platelet Count 162 K/mm3 (150-400); RDW Coefficient Variation 17.2 % (11.7-14.2); RDW Standard Deviation 53.3 fL (35.1-46.3); Red Blood Cell Count 4.27 M/mm3 (3.80-5.20)
[2024-10-06 05:26] LABS: Albumin, Blood 2.5 g/dL (3.4-5.0); Albumin/Globulin Ratio 0.7 (0.8-1.8); Bun/Creatinine Ratio 42.7 (12.0-20.0); Calcium, Blood 8.9 mg/dL (8.5-10.1); Creatinine, Blood 0.84 mg/dL (0.40-1.00); Free Thyroxine 1.16 ng/dL (0.70-1.60); Globulin, Blood 3.8 g/dL (2.2-4.0); Total Protein, Blood 6.3 g/dL (6.4-8.2)
[2024-10-06 08:01] VITALS: BP 130/84
[2024-10-06 12:34] VITALS: BP 121/68
[2024-10-06 12:53] LABS: Gentamicin, Peak 3.6 ug/mL (4.0-8.0)
[2024-10-06 15:44] VITALS: BP 125/83
--- NOTE | 2024-10-06 17:00 | NUR ---
SHIFT SUMMARY: PT HAS BEEN ALERT, ORIENTED TO ALL. PT DECLINES TO PARTICIPATE IN RECOMMENDED THERAPIES TO IMPROVE HEALTH, SUCH USING INC SPIROMETER OR GETTING OOB AT ALL. LOW PO INTAKE, LOW MOTIVATION, GENERALIZED WEAKNESS. PT CHANGING BETWEEN NC AT 2 L/MIN AND HOME CPAP, O2 SATS >93%. SR ON MONITOR W/RATE 60s-70s, PT DENIES CP. PUREWICK CONTINUES, SET TO LOW CONT SUCTION, DRAINING DARK JULEE COLORED URINE. REPOSITIONING Q2H OR PT TOLERATES. PT RESTING QUIETLY IN BED W/ CALL LIGHT IN REACH.
[2024-10-06 18:11] LABS: Gentamicin, Trough 2.1 ug/mL (0.0-1.9)
[2024-10-06] MEDS ORDERED: GENTAMICIN SULFATE IV SCH (21:00)
[2024-10-06] MEDS ORDERED: NS IV SCH (21:00)
[2024-10-07 01:01] VITALS: BP 120/72
[2024-10-07 04:00] VITALS: BP 125/77
[2024-10-07 04:04] LABS: BASOPHILS ABSOLUTE AUTO 0.04 K/mm3 (0.00-0.23); BASOPHILS PERCENT AUTO 0 % (0-2); EOSINOPHILS ABSOLUTE AUTO 0.18 K/mm3 (0.00-0.68); EOSINOPHILS PERCENT AUTO 1 % (0-6); Hematocrit 34.1 % (33.0-51.0); Hemoglobin 10.5 g/dL (11.5-16.0); IMMATURE GRAN PERCENT AUTO 2 % (0-1); LYMPHOCYTES ABSOLUTE AUTO 2.27 K/mm3 (0.84-5.20); LYMPHOCYTES PERCENT AUTO 18 % (21-46); MONOCYTES ABSOLUTE AUTO 1.05 K/mm3 (0.16-1.47); MONOCYTES PERCENT AUTO 8 % (4-13); Mean Corpuscular HGB 26.4 pg (26.0-34.0); Mean Corpuscular HGB Conc 30.8 g/dL (31.5-36.5); Mean Corpuscular Volume 86 fL (80-100); Mean Platelet Volume 11.6 fL (9.1-12.4); NEUTROPHILS PERCENT AUTO 71 % (41-73); NRBC ABSOLUTE 0.02 K/mm3 (0.00-0.02); NRBC Auto 0.2 /100 WBC (0.0-0.2); Platelet Count 168 K/mm3 (150-400); RDW Coefficient Variation 17.5 % (11.7-14.2); RDW Standard Deviation 53.1 fL (35.1-46.3); Red Blood Cell Count 3.97 M/mm3 (3.80-5.20); White Blood Cell Count 12.74 K/mm3 (4.00-11.30)
[2024-10-07 04:22] LABS: Albumin, Blood 2.4 g/dL (3.4-5.0); Albumin/Globulin Ratio 0.6 (0.8-1.8); Bun/Creatinine Ratio 38.5 (12.0-20.0); Calcium, Blood 8.8 mg/dL (8.5-10.1); Creatinine, Blood 0.86 mg/dL (0.40-1.00); Globulin, Blood 3.9 g/dL (2.2-4.0); Potassium, Blood 4.3 mmol/L (3.5-5.5); Total Protein, Blood 6.3 g/dL (6.4-8.2)
--- NOTE | 2024-10-07 07:00 | NUR ---
BLADDER SCANNED D/T LOW URINE OUTPUT FOR SHIFT. SCAN RESULTS: 197ml. EMERGENCY SPILL RESPONSE TECHNICIAN AWARE AND REPORTED TO DAY NURSE.
[2024-10-07 08:01] VITALS: BP 135/77
[2024-10-07] MEDS ORDERED: Furosemide 40 MG Tab PO SCH (09:00)
[2024-10-07] MEDS ORDERED: Spironolactone 25 MG Tab PO SCH (09:00)
[2024-10-07] MEDS ORDERED: Aspirin 81 MG Chew PO SCH (09:00)
[2024-10-07 12:07] VITALS: BP 129/87
[2024-10-07 16:36] VITALS: BP 113/101
--- NOTE | 2024-10-07 18:11 | NUR ---
SHIFT SUMMARY: PT A&Ox4, ANSWERS QUESTIONS APPROPRIATELY, COOPERATIVE W/CARE. PT CONTINUES LETHARGIC/GENERALLY WEAK, BUT IS MORE MOTIVATED TODAY TO PARTICPATE IN CARE. PT UP OOB FOR BEDSIDE CHAIR AND THEN FOR RECLINER, PT TOLERATES WELL. O2 SATS CONTINUE >93% ON 2 L/MIN NC OR HOME CPAP MACHINE. SB/SR ON MONITOR, RATE MOSTLY 50s-70s. PT MARILYN IN MID 40s FOR A COUPLE HOURS TODAY, PROVIDER NOTIFIED, MEDICATION ORDERS HAVE BEEN CHANGED PER EMAR. PT W/BETTER FLUID INTAKE BUT LOW APPETITE CONTINUES. KelBillet PATENT, SET TO LCS, LOW URINE OUTPUT CONTINUES, PROVIDER NOTIFIED W/CHANGES PER EMAR. CURRENT PLAN IS FOR PT TO DISCHARGE TO SNF, DEPENDING ON INSURANCE AUTHORIZATION. PT HAS BEEN UPDATED ON PLAN T/OUT THE DAY. AT THIS TIME, PT IS RESTING IN BED W/CALL LIGHT IN REACH.
[2024-10-07 20:35] LABS: Creatinine, Blood 1.08 mg/dL (0.40-1.00); Gentamicin, Trough 2.1 ug/mL (0.0-1.9)
[2024-10-07 20:48] VITALS: BP 107/68
[2024-10-08] VITALS: BP 110/59
[2024-10-08 04:00] VITALS: BP 118/71
[2024-10-08 08:11] LABS: BASOPHILS ABSOLUTE AUTO 0.08 K/mm3 (0.00-0.23); BASOPHILS PERCENT AUTO 0 % (0-2); EOSINOPHILS ABSOLUTE AUTO 0.09 K/mm3 (0.00-0.68); EOSINOPHILS PERCENT AUTO 0 % (0-6); Hematocrit 36.9 % (33.0-51.0); Hemoglobin 11.2 g/dL (11.5-16.0); IMMATURE GRAN ABSOLUTE AUTO 0.32 K/mm3 (0.00-0.10); IMMATURE GRAN PERCENT AUTO 1 % (0-1); LYMPHOCYTES ABSOLUTE AUTO 2.29 K/mm3 (0.84-5.20); LYMPHOCYTES PERCENT AUTO 9 % (21-46); MONOCYTES ABSOLUTE AUTO 1.53 K/mm3 (0.16-1.47); MONOCYTES PERCENT AUTO 6 % (4-13); Mean Corpuscular HGB 26.2 pg (26.0-34.0); Mean Corpuscular HGB Conc 30.4 g/dL (31.5-36.5); Mean Corpuscular Volume 86 fL (80-100); Mean Platelet Volume 11.5 fL (9.1-12.4); NEUTROPHILS ABSOLUTE AUTO 20.44 K/mm3 (1.96-9.15); NEUTROPHILS PERCENT AUTO 83 % (41-73); Platelet Count 228 K/mm3 (150-400); RDW Coefficient Variation 18.1 % (11.7-14.2); RDW Standard Deviation 54.9 fL (35.1-46.3); Red Blood Cell Count 4.28 M/mm3 (3.80-5.20); White Blood Cell Count 24.75 K/mm3 (4.00-11.30)
[2024-10-08] MEDS ORDERED: Polyethylene Glycol 3350 17 gm PO PRN (08:25)
[2024-10-08] MEDS ORDERED: Sennosides 8.6 MG Tab PO PRN (08:25)
[2024-10-08 08:34] LABS: Albumin, Blood 2.4 g/dL (3.4-5.0); Albumin/Globulin Ratio 0.6 (0.8-1.8); Bun/Creatinine Ratio 28.7 (12.0-20.0); Calcium, Blood 9.1 mg/dL (8.5-10.1); Creatinine, Blood 1.36 mg/dL (0.40-1.00); Globulin, Blood 4.2 g/dL (2.2-4.0); Potassium, Blood 4.6 mmol/L (3.5-5.5); Total Protein, Blood 6.6 g/dL (6.4-8.2)
[2024-10-08 08:41] LABS: Gentamicin, Random 1.2 ug/Ml
[2024-10-08] MEDS ORDERED: Furosemide 80 MG Tab PO SCH (09:00)
[2024-10-08] MEDS ORDERED: Propranolol HCL 60 MG CAPCR PO SCH (09:00)
[2024-10-08] MEDS ORDERED: Docusate Sodium 100 MG Cap PO SCH (09:00)
[2024-10-08 09:20] VITALS: BP 111/72
--- NOTE | 2024-10-08 09:59 | NUR ---
NURSING PCU DAYSHIFT: Assumed care of patient at approx 0700. A/O, very anxious, cooperative w/care though fixates on frequent needs, pleasant w/staff, requires encouragement to participate in ADL's. Skin pale/fragile, scattered bruising/scabs, may drain to inner R breast, dressing CDI, wound to L great toe open to air, coccyx pressure wound w/mepilex in place. Transfers w/one staff assist using FWW. Tele in place, SB/SR, no c/o CP/pressure, SBP 111 prior to a.m. meds, BLE edema. L/S cta in upper lobes, dim w/fine crackles in mid/lower lobes, dyspnea and tachypnea w/minimal exertion, occ cough producing small amts of thick/green sputum, O2 sat mid to upper 90's on RA this a.m., using CPAP during periods of rest w/3L bleed in. Abd mildly distended which pt states is normal, BT hypoactive, large/formed BM today, incontinent of urine w/PW in place. 22g PIV to RW, s/l w/abx as scheduled. No s/s of acute distress this a.m. Frequent reassurance provided. Pt currently OOB in chair, denies any current needs. Covid swab sent to lab in anticipation of discharge to SNF. Seen by hospitalist team, new d/o received. Call light in reach which pt is able to use w/o difficulty. Continue to monitor for changes.
[2024-10-08] MEDS ORDERED: NS IV SCH (10:00)
[2024-10-08] MEDS ORDERED: GENTAMICIN SULFATE IV SCH (10:00)
[2024-10-08 10:18] LABS: SARS-Cov-2 (COVID-19) PCR, MMC NEGATIVE (NEGATIVE)
[2024-10-08] MEDS ORDERED: ASPI81CH PO (12:55)
[2024-10-08] MEDS ORDERED: IPRAT-ALBUT 0.5-3 ML INH (12:55)
[2024-10-08] MEDS ORDERED: MIRALAX11910 PO (12:56)
[2024-10-08] MEDS ORDERED: OXACILLIN SODIUM IV (12:56)
[2024-10-08] MEDS ORDERED: SENN187 PO (12:57)
[2024-10-08] MEDS ORDERED: PROP120ER PO (12:57)
[2024-10-08] MEDS ORDERED: CUBICIN RF500 M1 IV ×2 (12:59→13:02)
[2024-10-08] MEDS ORDERED: RIFA300 PO (13:01)
== END 2024-10-08 13:40 | DRG 853 ==
LOC: ER 02:15 → ERHOLD 04:54 → PCU 04:54 → ICUE 04:54 → PCU 08:03 → ICUE 16:55 → PCU 10-04 12:47
PROVIDERS: Emergency Medicine; Family Medicine; Internal Medicine; Student in an Organized Health Care Education/Training Program; Surgery; ADMIT Internal Medicine
PROC: 3E03329 Introduction of Other Anti-infective into Peripheral Vein, Percutaneous Approach (ICD-10-PCS; 2024-09-30)
PROC: 5A09357 Assistance with Respiratory Ventilation, Less than 24 Consecutive Hours, Continuous Positive Airway Pressure (ICD-10-PCS; 2024-10-01)
PROC: 0H9T0ZZ Drainage of Right Breast, Open Approach (ICD-10-PCS; principal; 2024-10-02 09:15)
PROC: 5A09457 Assistance with Respiratory Ventilation, 24-96 Consecutive Hours, Continuous Positive Airway Pressure (ICD-10-PCS; 2024-10-07)
DX: A41.01 Sepsis due to Methicillin susceptible Staphylococcus aureus (principal); D66 Hereditary factor VIII deficiency; R65.21 Severe sepsis with septic shock; G92.8 Other toxic encephalopathy; J96.21 Acute and chronic respiratory failure with hypoxia; J18.9 Pneumonia, unspecified organism; I50.33 Acute on chronic diastolic (congestive) heart failure; Z66 Do not resuscitate; Z51.5 Encounter for palliative care; N17.9 Acute kidney failure, unspecified; J96.10 Chronic respiratory failure, unspecified whether with hypoxia or hypercapnia; I47.29 Other ventricular tachycardia; I47.10 Supraventricular tachycardia, unspecified; N39.0 Urinary tract infection, site not specified; S01.91XA Laceration without foreign body of unspecified part of head, initial encounter; W01.0XXA Fall on same level from slipping, tripping and stumbling without subsequent striking against object, initial encounter; I27.20 Pulmonary hypertension, unspecified; M06.9 Rheumatoid arthritis, unspecified; F32.A Depression, unspecified; M10.9 Gout, unspecified; J44.9 Chronic obstructive pulmonary disease, unspecified; F41.9 Anxiety disorder, unspecified; E11.40 Type 2 diabetes mellitus with diabetic neuropathy, unspecified; E86.0 Dehydration; D64.9 Anemia, unspecified; G47.33 Obstructive sleep apnea (adult) (pediatric); K21.9 Gastro-esophageal reflux disease without esophagitis; I44.1 Atrioventricular block, second degree; E05.90 Thyrotoxicosis, unspecified without thyrotoxic crisis or storm; L89.101 Pressure ulcer of unspecified part of back, stage 1; N61.1 Abscess of the breast and nipple; R55 Syncope and collapse; E11.51 Type 2 diabetes mellitus with diabetic peripheral angiopathy without gangrene; E11.621 Type 2 diabetes mellitus with foot ulcer; L97.529 Non-pressure chronic ulcer of other part of left foot with unspecified severity; R53.81 Other malaise; T36.5X5A Adverse effect of aminoglycosides, initial encounter; Z87.891 Personal history of nicotine dependence; Z88.8 Allergy status to other drugs, medicaments and biological substances; Z88.5 Allergy status to narcotic agent; Z99.81 Dependence on supplemental oxygen; Z90.49 Acquired absence of other specified parts of digestive tract; Z95.2 Presence of prosthetic heart valve; Z79.4 Long term (current) use of insulin; Z79.899 Other long term (current) drug therapy
CPT/HCPCS: 0241U; 12002; 36415; 70450; 71045; 71046; 71260; 72125; 74150; 76604; 80048; 80053; 80170; 80202; 81001; 82533; 82565; 82803; 82947; 83520; 83605; 83735; 83880; 84100; 84145; 84439; 84443; 84481; 85025; 85651; 87040; 87077; 87086; 87147; 87186; 87493; 93005; 93010; 93308; 93321; 93922; 93971; 94640; 94660; 94664; 94760; 94762; 96365-59; 97110; 97162; 97165; 97530; 99285-25; A9270; C1751; J0692; J1580; J1650; J1720; J1815; J1940; J2060; J2405; J2700; J2704; J2765; J3010; J3370; J3475; J7030; J7040; J7050; J7120; J7799; P9612; Q9967; U0002

== ENCOUNTER 2024-10-11 21:47 | Inpatient (IN) | payer OTHER ==
[~2024-10-11] VITALS: Ht 165.1 cm; Wt 119.0 kg
[~2024-10-11 21:47] MED LIST changes: +CUBICIN RF500 M1 IV; +IPRAT-ALBUT 0.5-3 ML INH; +MIRALAX11910 PO; +OXACILLIN SODIUM IV; +OZEMPIC0.25 MG/02 SC; +PROP120ER PO; +RIFA300 PO; +SENN187 PO; +ZEBUTAL 50-3251 EA10 PO
[2024-10-11] MEDS ORDERED: Ondansetron HCl 2 MG / ML 2ML Vial IV ONE (23:25)
[2024-10-11] MEDS ORDERED: HYDROmorphone HCl/Pf 1MG SYR IV ONE (23:25)
[2024-10-11 23:54] LABS: BASOPHILS ABSOLUTE AUTO 0.05 K/mm3 (0.00-0.23); BASOPHILS PERCENT AUTO 0 % (0-2); EOSINOPHILS ABSOLUTE AUTO 0.03 K/mm3 (0.00-0.68); EOSINOPHILS PERCENT AUTO 0 % (0-6); Hematocrit 39.3 % (33.0-51.0); IMMATURE GRAN ABSOLUTE AUTO 0.19 K/mm3 (0.00-0.10); IMMATURE GRAN PERCENT AUTO 1 % (0-1); LYMPHOCYTES ABSOLUTE AUTO 2.31 K/mm3 (0.84-5.20); LYMPHOCYTES PERCENT AUTO 10 % (21-46); MONOCYTES ABSOLUTE AUTO 0.93 K/mm3 (0.16-1.47); MONOCYTES PERCENT AUTO 4 % (4-13); Mean Corpuscular HGB 26.1 pg (26.0-34.0); Mean Corpuscular HGB Conc 30.5 g/dL (31.5-36.5); Mean Corpuscular Volume 85 fL (80-100); Mean Platelet Volume 11.6 fL (9.1-12.4); NEUTROPHILS ABSOLUTE AUTO 19.54 K/mm3 (1.96-9.15); NEUTROPHILS PERCENT AUTO 85 % (41-73); NRBC ABSOLUTE 0.05 K/mm3 (0.00-0.02); NRBC Auto 0.2 /100 WBC (0.0-0.2); Platelet Count 298 K/mm3 (150-400); RDW Coefficient Variation 19.9 % (11.7-14.2); RDW Standard Deviation 58.2 fL (35.1-46.3); White Blood Cell Count 23.05 K/mm3 (4.00-11.30)
[2024-10-12] VITALS (36 sets, daily range): BP systolic 88–132; BP diastolic 29–71
[2024-10-12] MEDS ORDERED: NS 1,000 ML IV SCH ×4 (00:40→20:35)
[2024-10-12 00:47] LABS: International Normalized Ratio 1.21; Prothrombin Time Results 12.8 Sec (9.7-11.5)
[2024-10-12 03:23] LABS: Albumin, Blood 2.3 g/dL (3.4-5.0); Albumin/Globulin Ratio 0.5 (0.8-1.8); Bilirubin, Total 1.2 mg/dL (0.1-1.0); Bun/Creatinine Ratio 16.4 (12.0-20.0); Calcium, Blood 7.9 mg/dL (8.5-10.1); Creatinine, Blood 4.7 mg/dL (0.40-1.00); Globulin, Blood 4.3 g/dL (2.2-4.0); Potassium, Blood 5.3 mmol/L (3.5-5.5); Total Protein, Blood 6.6 g/dL (6.4-8.2)
[2024-10-12] MEDS ORDERED: Ampicillin Sod/Sulbactam Sod 3 GM in NS 100 ML IV ONE (04:15)
[2024-10-12] MEDS ORDERED: Ondansetron HCl 2 MG / ML 2ML Vial IV PRN (04:35)
[2024-10-12] MEDS ORDERED: FLU VACC TS2024-25(6MOS UP)/PF 45 MCG/0.5 ML SYRINGE IM ONE (04:35)
[2024-10-12] MEDS ORDERED: Sodium Bicarb 8.4% Inj 150 MEQ in Dextrose 5% 1,000 ML IV SCH ×2 (04:45→21:00)
[2024-10-12] MEDS ORDERED: Oxacillin Sod 2,000 MG in NS 100 ML IV SCH (05:00)
[2024-10-12] MEDS ORDERED: ClonazePAM 0.5 MG Tab PO PRN (08:50)
[2024-10-12] MEDS ORDERED: Allopurinol 100 MG Tab PO SCH (09:00)
[2024-10-12] MEDS ORDERED: Propranolol HCL 60 MG CAPCR PO SCH (09:00)
[2024-10-12] MEDS ORDERED: Lactobacil 2-S.Thermo-Bifido 1 1 Cap PO SCH (09:00)
[2024-10-12 09:26] LABS: PCO2 Venous 41.4 mmHg (38-42)
[2024-10-12 09:27] LABS: Base Excess Venous -17.1 mmol/L; Bicarbonate Venous 12.2 mmol/L (24.0-30.0)
[2024-10-12] MEDS ORDERED: CALCIUM GLUC IN NACL, ISO-OSM 100 ML IV ONE ×2 (09:45→21:00)
[2024-10-12 11:07] LABS: Source, Urine Clean Catch
[2024-10-12 11:12] LABS: Appearance, Urine Cloudy (Clear); Blood, Urine 5+ (Neg); Glucose Qualitative, Urine Neg (Neg); Ketones, Urine Neg (Neg); Leukocyte Esterase, Urine 2+ (Neg); Nitrite, Urine Neg (Neg); Protein, Urine 3+ (Neg); Specific Gravity, Urine 1.025 (1.003-1.022); Urobilinogen, Urine NORM (Normal)
[2024-10-12] MEDS ORDERED: NS 500 ML IV ONE ×2 (11:15→15:50)
[2024-10-12 11:20] LABS: Bilirubin, Urine 2+ (Neg); Color, Urine Orange (P-Yellow)
[2024-10-12 11:25] LABS: Amorphous Heavy (0-Heavy); Bacteria Many /hpf; Mucus Light (0-Heavy); Renal Epithelial Few /hpf (0-Rare); Squamous Epithelial Cells Mod /hpf (Few); Transitional Epithelial Cells Few /hpf (0-Rare)
[2024-10-12 11:26] LABS: Hyaline Casts 0-2 /lpf (0-2)
[2024-10-12] MEDS ORDERED: Insulin Human Lispro 100 Units/ML 3ML Syringe SC SCH (11:30)
[2024-10-12 12:04] LABS: Albumin, Blood 2.2 g/dL (3.4-5.0); Anion Gap 19 mmol/L (3-11); Blood Urea Nitrogen 81 mg/dL (8-24); CO2, Blood 13 mmol/L (21-32); Chloride, Blood 110 mmol/L (98-108); Creatinine, Blood 5.05 mg/dL (0.40-1.00); Glomerular Filtration Rate 9 (60-); Glucose, Blood 197 mg/dL (70-99); Phosphorus, Blood 9.7 mg/dL (2.5-4.9); Potassium, Blood 5.7 mmol/L (3.5-5.5); Sodium, Blood 136 mmol/L (136-145)
[2024-10-12] MEDS ORDERED: Sodium Zirconium Cyclosilicate 10 GM Packet PO SCH (15:00)
[2024-10-12] MEDS ORDERED: NS 1,000 ML IV ONE ×2 (16:00→16:27)
[2024-10-12 17:26] LABS: Campylobacter Sp Not Detected (NOT DETECT); Enteroaggregative E. coli-EAEC Not Detected (NOT DETECT); Enteropathogenic E. coli-EPEC Not Detected (NOT DETECT); Enterotoxigenic E. coli-ETEC Not Detected (NOT DETECT); Plesiomonas Shigelloides Not Detected (NOT DETECT); Salmonella Sp Not Detected (NOT DETECT); Vibrio Cholerae Not Detected (NOT DETECT); Vibrio Sp Not Detected (NOT DETECT); Yersinia Enterocolitica Not Detected (NOT DETECT)
[2024-10-12 17:27] LABS: Adenovirus F 40/41 Not Detected (NOT DETECT); Astrovirus Not Detected (NOT DETECT); Cryptosporidium Not Detected (NOT DETECT); Cyclospora Cayetanensis Not Detected (NOT DETECT); E. Coli O157 Not Detected (NOT DETECT); Entamoeba Histolytica Not Detected (NOT DETECT); Giardia Lamblia Not Detected (NOT DETECT); Norovirus GI/GII Not Detected (NOT DETECT); Rotavirus A Not Detected (NOT DETECT); Sapovirus Not Detected (NOT DETECT); Shiga Toxin-prod E. coli-STEC Not Detected (NOT DETECT); Shigella/Enteroin E. coli-EIEC Not Detected (NOT DETECT)
--- NOTE | 2024-10-12 17:30 | NUR ---
CALLED DR PEREZ TO NOTIFY OF PATIENT ARRIVING TO ICU FROM ED AND LOW BLOOD PRESSURES AND WORK OF BREATHING. NO NEW ORDERS AT THIS TIME
--- NOTE | 2024-10-12 17:45 | NUR ---
CALLED DR PEREZ TO NOTIFY OF LOW BLOOD PRESSURE NO NEW ORDERS RECIEVED BUT VERBALIZED SHE WOULD PUT HER OWN ORDERS IN
[2024-10-12] MEDS ORDERED: NS 500 ML IV STA (18:00)
[2024-10-12 18:18] LABS: Hematocrit 37.2 % (33.0-51.0); Hemoglobin 11.3 g/dL (11.5-16.0)
[2024-10-12 18:48] LABS: PCO2 Arterial 36.2 mmHg (35-45); PO2 Arterial 91.8 mmHg (80-100)
[2024-10-12 18:53] LABS: pH Blood Arterial 7.19 (7.35-7.45)
[2024-10-12] MEDS ORDERED: Albuterol 2.5 MG/3 ML VIAL INH PRN (19:20)
[2024-10-12] MEDS ORDERED: Ipratropium/Albuterol SulF 2.5-0.5MG/3 ML Amp INH SCH (19:20)
[2024-10-12] MEDS ORDERED: Sodium Bicarb 8.4% 1 MEQ/ML 50 ML Vial IV ONE (20:35)
--- NOTE | 2024-10-12 20:41 | NUR ---
START OF SHIFT PT RESTING IN BED ON BIPAP WITH FIO2 OF 30%. PT BRADYCARDIC WITH TWO SEPARATE EKG DONE. PROVIDER NOTIFIED. LEVO IS TITRATING DOWN BEING REPLACED WITH EPINEPHRINE. MD LAWSON SPOKEN TO, BICARB PUSH ORDERED. PT ABLE TO OPEN EYES AND FOLLOW SIMPLE COMMANDS. PT DENIES ANY PAIN. PT SPO2 100%. NS GTT AT 75 PER RILEY. BICARB GTT INCREASED. WILL CONTINUE PLAN OF CARE.
[2024-10-12 21:11] LABS: Base Excess Venous -15.2 mmol/L; Bicarbonate Venous 13.7 mmol/L (24.0-30.0); PCO2 Venous 34.8 mmHg (38-42)
[2024-10-12 21:12] LABS: pH Blood Venous 7.19 (7.34-7.37)
[2024-10-12 21:51] LABS: Albumin, Blood 2.2 g/dL (3.4-5.0); Anion Gap 19 mmol/L (3-11); Blood Urea Nitrogen 77 mg/dL (8-24); Bun/Creatinine Ratio 15.5 (12.0-20.0); CO2, Blood 14 mmol/L (21-32); Calcium, Blood 7.6 mg/dL (8.5-10.1); Chloride, Blood 110 mmol/L (98-108); Creatinine, Blood 4.97 mg/dL (0.40-1.00); Glomerular Filtration Rate 9 (60-); Glucose, Blood 228 mg/dL (70-99); Phosphorus, Blood 9.4 mg/dL (2.5-4.9); Potassium, Blood 5.4 mmol/L (3.5-5.5); Sodium, Blood 138 mmol/L (136-145)
[2024-10-12] MEDS ORDERED: Micafungin Sodium 100 MG in NS 100 ML IV SCH (22:00)
[2024-10-13] VITALS (123 sets, daily range): BP systolic 98–177; BP diastolic 30–98
[2024-10-13] MEDS ORDERED: Hydrocortisone Sod Succinate 100 MG Vial IV SCH
[2024-10-13] MEDS ORDERED: FentaNYL Citrate 50 MCG/ML 2 ML Injection ONE (00:15)
[2024-10-13] MEDS ORDERED: FentaNYL Citrate 50 MCG/ML 2 ML Injection IV PRN (00:25)
[2024-10-13] MEDS ORDERED: Bumetanide 0.25 MG/ML 10ML Vial IV ONE (01:35)
[2024-10-13 03:42] LABS: Hematocrit 38.5 % (33.0-51.0); Hemoglobin 11.6 g/dL (11.5-16.0); Mean Corpuscular HGB 25.9 pg (26.0-34.0); Mean Corpuscular HGB Conc 30.1 g/dL (31.5-36.5); Mean Corpuscular Volume 86 fL (80-100); Mean Platelet Volume 11.2 fL (9.1-12.4); NRBC ABSOLUTE 0.19 K/mm3 (0.00-0.02); NRBC Auto 0.6 /100 WBC (0.0-0.2); Platelet Count 292 K/mm3 (150-400); RDW Coefficient Variation 20.6 % (11.7-14.2); RDW Standard Deviation 58.7 fL (35.1-46.3); Red Blood Cell Count 4.48 M/mm3 (3.80-5.20); White Blood Cell Count 31.34 K/mm3 (4.00-11.30)
[2024-10-13 04:15] LABS: Albumin, Blood 2.3 g/dL (3.4-5.0); Albumin/Globulin Ratio 0.5 (0.8-1.8); Bilirubin, Total 1.2 mg/dL (0.1-1.0); Bun/Creatinine Ratio 15.8 (12.0-20.0); Calcium, Blood 7.7 mg/dL (8.5-10.1); Creatinine, Blood 5.32 mg/dL (0.40-1.00); Globulin, Blood 4.3 g/dL (2.2-4.0); Phosphorus, Blood 9.9 mg/dL (2.5-4.9); Potassium, Blood 5.8 mmol/L (3.5-5.5); Total Protein, Blood 6.6 g/dL (6.4-8.2)
--- NOTE | 2024-10-13 04:23 | NUR ---
SHIFT SUMMARY PT BECAME BRADYCARDIC AT BEGINNING OF SHIFT. ATTEMPTED TO TRANSITION FROM LEVO TO EPI, PT ON BOTH CURRENTLY. TDC WITH PIGTAIL PLACED R SUBCLAVE. STATED TO READRESS A NEED FOR AN ARTERIAL LINE DURING THE DAY. PT AOX1 AND ABLE TO MAKE NEEDS KNOWN WITH SINGLE WORDS/ SHAKING AND NODDING OF THE HEAD. MD LIN AWARE OF LOW UOP. OVER NIGHT PT STATED A SENSE OF DYSPNEA, NOTIFIED AND 5MG OF BUMEX GIVEN WITH A RESULTING UOP OF 45ML. WILL CONTINUE PLAN OF CARE.
[2024-10-13] MEDS ORDERED: Insulin Regular 100 UNIT/ML 10ML Vial IV STA (04:34)
[2024-10-13 07:03] LABS: Stool Occult Blood Guaiac 1 Pos (Neg)
[2024-10-13] MEDS ORDERED: CALCIUM GLUC IN NACL, ISO-OSM 100 ML IV ONE (07:50)
[2024-10-13] MEDS ORDERED: Anticoagulant Sod Citrate Soln 3 ML SYR INJ PRN (09:35)
[2024-10-13] MEDS ORDERED: Albumin (Human) 25gm/100ml 100 ML IV PRN (10:00)
[2024-10-13] MEDS ORDERED: CefTRIAXone Sodium 2,000 MG in NS 100 ML IV SCH (12:00)
--- NOTE | 2024-10-13 21:30 | NUR ---
ASSUMPTION OF CARE ASSUMED CARE OF PATIENT AT 1900, BEDSIDE SHIFT REPORT RECEIVED FROM ANNABEL RN. PT RESTING IN BED, SLEEPING BUT AROUSABLE. PT OPENS EYES TO VERBAL STIMULI, MUMBLES WORDS, DOES NOT ANSWER ORIENTING QUESTIONS. PT WEAK BUT FOLLOWS COMMANDS. HR 60-70'S, BP LABILE, EPINEPHRINE INFUSING AT 9MCG/MIN, LEVOPHED INFUSING AT 10MCG/MIN. PT ON BIPAP, 16/10 30%, OXYGEN SATURATION >90%. ABDOMEN SOFT AND ROUND, BOWEL TONES HYPOACTIVE, PT COMPLAINING OF PAIN IN HER ABDOMEN, MEDICATED PER EMAR. TEMP العلي IN PLACE PATENT DRAINING MINIMAL JULEE COLORED URINE. PIV IN PLACE TO LAC, POWERGLIDE IN PLACE TO INOCENTE. TRIALYSIS CATH IN PLACE TO RIGHT SUBCLAVIAN. PT TOES CYANOTIC/MOTTLED, DR. ISABEL AWARE. WOUND NOTED TO LEFT GREAT TOE, PRESENT SINCE PREVIOUS ADMISSION, DR. ISABEL AWARE. BED IN LOWEST POSITION, CALL LIGHT WITHIN REACH, CARE CONTINUES.
--- NOTE | 2024-10-13 21:39 | NUR ---
WOUND NOTFICATION DR. ISABEL NOTIFIED OF WOUND ON PT LEFT GREAT TOE. WOUND HAS BEEN PRESENT SINCE PREVIOUS ADMISSION. NO NEW ORDERS AT THIS TIME. CARE CONTINUES.
[2024-10-14] VITALS (97 sets, daily range): BP systolic 96–1215; BP diastolic 46–91
[2024-10-14] MEDS ORDERED: Insulin Human Lispro 100 Units/ML 3ML Syringe SC SCH
[2024-10-14 03:25] LABS: BASOPHILS ABSOLUTE AUTO 0.03 K/mm3 (0.00-0.23); BASOPHILS PERCENT AUTO 0 % (0-2); EOSINOPHILS ABSOLUTE AUTO 0.04 K/mm3 (0.00-0.68); EOSINOPHILS PERCENT AUTO 0 % (0-6); Hematocrit 33.2 % (33.0-51.0); Hemoglobin 10.4 g/dL (11.5-16.0); IMMATURE GRAN ABSOLUTE AUTO 0.08 K/mm3 (0.00-0.10); IMMATURE GRAN PERCENT AUTO 1 % (0-1); LYMPHOCYTES PERCENT AUTO 11 % (21-46); MONOCYTES ABSOLUTE AUTO 1.12 K/mm3 (0.16-1.47); MONOCYTES PERCENT AUTO 7 % (4-13); Mean Corpuscular HGB 26.2 pg (26.0-34.0); Mean Corpuscular HGB Conc 31.3 g/dL (31.5-36.5); Mean Corpuscular Volume 84 fL (80-100); Mean Platelet Volume 10.2 fL (9.1-12.4); NEUTROPHILS ABSOLUTE AUTO 13.16 K/mm3 (1.96-9.15); NEUTROPHILS PERCENT AUTO 82 % (41-73); NRBC ABSOLUTE 0.09 K/mm3 (0.00-0.02); NRBC Auto 0.6 /100 WBC (0.0-0.2); Platelet Count 150 K/mm3 (150-400); RDW Coefficient Variation 20.5 % (11.7-14.2); RDW Standard Deviation 56.1 fL (35.1-46.3); Red Blood Cell Count 3.97 M/mm3 (3.80-5.20); White Blood Cell Count 16.13 K/mm3 (4.00-11.30)
[2024-10-14 03:55] LABS: Anion Gap 15 mmol/L (3-11); Blood Urea Nitrogen 67 mg/dL (8-24); Bun/Creatinine Ratio 14.5 (12.0-20.0); CO2, Blood 22 mmol/L (21-32); Calcium, Blood 7.4 mg/dL (8.5-10.1); Chloride, Blood 107 mmol/L (98-108); Creatinine, Blood 4.62 mg/dL (0.40-1.00); Glomerular Filtration Rate 10 (60-); Glucose, Blood 258 mg/dL (70-99); Phosphorus, Blood 8.1 mg/dL (2.5-4.9); Potassium, Blood 3.6 mmol/L (3.5-5.5); Sodium, Blood 140 mmol/L (136-145)
--- NOTE | 2024-10-14 06:07 | NUR ---
SHIFT SUMMARY PT CONTINUES TO REST IN BED, SLEEPING BUT AROUSABLE TO VERBAL STIMULI. PT MUMBLES WORDS, DOES NOT ANSWER ORIENTING QUESTIONS, FOLLOWS DIRECTION WHEN PROMPTED. PT MVOES EXTRMEITIES EQUALLY BILATERALLY, SAYS "OW" WITH ANY STIMUKLATION. HR 40-60'S FIRST DEGREE, MAP >65. LEVOPHED INFUSING AT 2MCG/MIN, EPINEPHRINE INFUSING AT 5MCG/MIN. PT ON BIPAP, 16/10 30%, OXYGEN SATURATION >95%. ABDOMEN SOFT AND ROUND, BOWEL TONES HYPOACTIVE. TEMP العلي IN PLACE PATENT DRAINING MINIMAL URINE. PIV IN PLACE TO LAC, POWERGLIDE IN PLACE TO INOCENTE, TRIALYSIS CATH IN PLACE TO RIGHT SUBCLAVIAN. BED IN LOWEST POSITION, CALL LIGHT WITHIN REACH, CARE CONTINUES.
--- NOTE | 2024-10-14 07:00 | NUR ---
ASSUMED CARE OF PATIENT AT APPROXIMATELY 0700. REPORT RECEIVED FROM ASHLEY FLORES. PT ASLEEP IN BED, BRIEFLY WAKES WITH VERBAL/NOXIOUS STIMULI. SPEAKING IN ONE WORD SENTENCES DURING BEDSIDE REPORT SUCH "BREATHING" AND "NO". CONTINOUS CARIDAC MONITORING IN PLACE SHOWS SINUS MARILYN, BP STABLE. ON BIPAP WITH SETTINGS OF 16/10 AND 30% WITH O2 SATURATION OF 100%. TEMP العلي DRAINING. EPI INFUSING AT 5 MCG/MIN, LEVOPHED INFUSING AT 2 MCG/MIN. NO ACUTE NEEDS IDENTIFIED AT THIS TIME. SEE SHIFT ASSESSMENT FOR FULL DETAILS.
[2024-10-14] MEDS ORDERED: Anticoagulant Sod Citrate Soln 3 ML SYR INJ PRN (07:10)
[2024-10-14 15:07] LABS: HEPATITIS B SURFACE ANTIBODY <3.10 IU/L
[2024-10-14 17:01] LABS: HEPATITIS A ANTIBODY, IGM Negative (Negative); HEPATITIS B CORE ANTIBODY, IGM Negative (Negative); HEPATITIS B SURFACE ANTIGEN Negative (Negative); HEPATITIS C AB CIA INTERP Negative (Negative); HEPATITIS C ANTIBODY CIA INDEX 0.03 IV
--- NOTE | 2024-10-14 17:30 | NUR ---
MISSED BEATS ON MONITOR REVIEWED WITH DR. LUGO WHO PLACED ORDERS FOR IV CALCIUM.
[2024-10-14] MEDS ORDERED: Calcium Chloride 10% 2,000 MG in NS 100 ML IV ONE (17:45)
--- NOTE | 2024-10-14 17:53 | NUR ---
SHIFT SUMMARY PT REMAINED ALERT AND ORIENTED TO SELF/PERSON/FAMILY ONLY THROUGHOUT ENTIRETY OF SHIFT. ABLE TO FOLLOW COMMANDS, MAKE PURPOSEFUL MOVEMENTS, AND MAKE NEEDS KNOWN. AFEBRILE. REPORTED PAIN IN ABDOMEN, REPOSITIONED Q2H AND MEDICATED PER EMAR WITH GOOD BENEFIT. CONTINOUS CARDIAC MONITORING IN PLACE SHOWS SB-SR WITH HR IN 40'S-70'S. MAP > 65 WITH TITRATION OF EPI, CURRENTLY INFUSING AT 1 MCG/MIN, LEVOPHED TITRATED OFF AT START OF SHIFT. ALTERNATED BIPAP WITH SETTINGS OF 16/10 AND 30% AND 4LPM O2 VIA NC WITH O2 SATURATIONS > 92%. TEMP العلي IN PLACE WITH JULEE COLORED URINE OUT. ONE BM THIS SHIFT. DENIES N/V. NPO WITH SPEECH THERAPY ORDERS PLACED. CALCIUM CHLORIDE INFUSING, OXACILLIN INFUSING. WILL CONTINUE TO MONITOR AND REPORT TO ONCOMING RN.
--- NOTE | 2024-10-14 23:46 | NUR ---
THIS RN ASSUMED CARE OF PT AT 1900. PT IS ALERT AND ORIENTED X1 TO SELF AND SURROUNDINGS, IS ABLE ANSWER YES/NO QUESTIONS AND ANSWER IN SHORT ONE WORD ANSWERS. PT FOLLOWS COMMANDS. PT HEART RATE IS IN THE 40-70s, BLOOD PRESSURE STABLE AT 118/57, IS ON 0.5 EPI, DR. HCOPRA OKAY WITH EPI ON VERSUS LEVO, PT ALSO HAVING MISSED BEATS AND DR. CHOPRA IS AWARE. PT SOUNDS CLEAR/DIMINISHED, ON BIPAP 16/10 SATTING >90%. PT ALSO DENIES CHEST PAIN AND SHORTNESS OF BREATHE. PT DOES HAVE A DIALYSIS CATHETER WITH PIGTAIL, AND A POWERGLIDE RIGHT UPPER ARM, PT ALSO HAS PRESSURE INJURY ON SACRAM WITH MEPILEX IN PLACE. PT WAS COMPLAINING OF PAIN, TREATED WITH PER EMAR. NO OTHER INTERVENTIONS AT THIS TIME. PLAN OF CARE CONTINUED.
[2024-10-15] VITALS (78 sets, daily range): BP systolic 108–1287; BP diastolic 48–90
[2024-10-15] MEDS ORDERED: FentaNYL Citrate 50 MCG/ML 2 ML Injection IV PRN (01:35)
[2024-10-15 03:24] LABS: BASOPHILS ABSOLUTE AUTO 0.04 K/mm3 (0.00-0.23); BASOPHILS PERCENT AUTO 0 % (0-2); EOSINOPHILS ABSOLUTE AUTO 0.12 K/mm3 (0.00-0.68); EOSINOPHILS PERCENT AUTO 1 % (0-6); Hematocrit 31.5 % (33.0-51.0); Hemoglobin 9.8 g/dL (11.5-16.0); IMMATURE GRAN ABSOLUTE AUTO 0.05 K/mm3 (0.00-0.10); IMMATURE GRAN PERCENT AUTO 0 % (0-1); LYMPHOCYTES ABSOLUTE AUTO 1.29 K/mm3 (0.84-5.20); LYMPHOCYTES PERCENT AUTO 11 % (21-46); MONOCYTES ABSOLUTE AUTO 0.65 K/mm3 (0.16-1.47); MONOCYTES PERCENT AUTO 6 % (4-13); Mean Corpuscular HGB 26.5 pg (26.0-34.0); Mean Corpuscular HGB Conc 31.1 g/dL (31.5-36.5); Mean Corpuscular Volume 85 fL (80-100); Mean Platelet Volume 10.9 fL (9.1-12.4); NEUTROPHILS ABSOLUTE AUTO 9.39 K/mm3 (1.96-9.15); NEUTROPHILS PERCENT AUTO 82 % (41-73); NRBC ABSOLUTE 0.03 K/mm3 (0.00-0.02); NRBC Auto 0.3 /100 WBC (0.0-0.2); Platelet Count 107 K/mm3 (150-400); RDW Coefficient Variation 20.7 % (11.7-14.2); White Blood Cell Count 11.54 K/mm3 (4.00-11.30)
[2024-10-15 03:40] LABS: Magnesium, Blood 2.2 mg/dL (1.6-2.4)
[2024-10-15 03:41] LABS: Albumin, Blood 2.3 g/dL (3.4-5.0); Anion Gap 15 mmol/L (3-11); Blood Urea Nitrogen 52 mg/dL (8-24); Bun/Creatinine Ratio 13.2 (12.0-20.0); CO2, Blood 26 mmol/L (21-32); Calcium, Blood 8.3 mg/dL (8.5-10.1); Chloride, Blood 108 mmol/L (98-108); Creatinine, Blood 3.94 mg/dL (0.40-1.00); Glomerular Filtration Rate 12 (60-); Glucose, Blood 127 mg/dL (70-99); Phosphorus, Blood 6.5 mg/dL (2.5-4.9); Potassium, Blood 3.5 mmol/L (3.5-5.5); Sodium, Blood 145 mmol/L (136-145)
[2024-10-15] MEDS ORDERED: CALCIUM GLUC IN NACL, ISO-OSM 50 ML IV ONE (05:05)
--- NOTE | 2024-10-15 05:43 | NUR ---
PT SUMMARY PT CONSISTENTLY CALLING OUT FOR HELP EVERY 10-15 MINUTES, PT ALSO CLINICALLY LOOKED BAD BUT VITAL SIGNS VERY STABLE. DR. ROSE CAME TO BEDSIDE AND SAID SHE IS IN RENAL FAILURE, NO NEW ORDERS WERE PLACED. THIS RN NOTIFIED OF THE LOW IONIZED CALCIUM AND PROVIDER ORDERED 1GM OF CALCIUM GLUCONATE. PT DID HAVE A BIG BOWEL MOVEMENT, THE PRESSURE INJURY MEPLIEX WAS CHANGED. EPI HAS BEEN OFF SINCE 0200, PT HAS BEEN ABLE TO KEEP MAP >65 PER EMAR ORDER. NO OTHER NEW ACUTE EVENTS TO REPORT OVERNIGHT. DR. LUGO AWARE OF PT SKIPPING BEATS PER EKG AND WAS OKAY WITH EPI BEING ON LAST VERSUS THE LEVO. PLAN OF CARE CONTINUED AT THIS TIME.
[2024-10-15] MEDS ORDERED: Oxacillin Sod 2,000 MG in NS 100 ML IV ONE (09:55)
[2024-10-15] MEDS ORDERED: Anticoagulant Sod Citrate Soln 3 ML SYR INJ PRN (10:30)
[2024-10-15] MEDS ORDERED: Alteplase Recombinant 2 MG / Vial IV ONE (11:45)
--- NOTE | 2024-10-15 19:20 | NUR ---
SHIFT SUMMARY PATIENT ALERT AND ORIENTED X4. INTERMITTENTLY DROWSY BUT IMPROVED FROM YESTERDAY. ABLE TO MAKE HER NEEDS KNOWN BUT DOES NOT CALL APPROPRIATELY. WENCHEBACK, RBB NOTED HR 50-70S. SBP 120-130S STABLE. PT REMAINS AFEBRILE. LUNGS DIM SPO2 ABOVE 95% ON 1 LPM VIA NC BUT PATIENT COMPLAINED OF A HEAVY CHEST AND SOB, PATIENT PREFERS BIPAP AND TOLERATES VERY WELL. ON BIPAP MOST OF THE DAY. ABDOMEN IS MILDLY DISTENDED WITH NORMOACTIVE BOWEL TONES. LAST BM TODAY, DARK BROWN AND MUCUSY. PEN DELLA DRAIN IN PLACE NO DRAINAGE TODAY, I DID CHANGED THE SPLIT GAUZE. SKIN: SCAB FRONT SCALP REMAINS INTACT. REDNESS TO R BREAST WITH ECCYMOSIS. REDNESS UNDER BILAT BREASTS AND PANNUS - INTERDRY IN PLACE. EDEMA PRESENT FROM ABDOMEN TO FEET. BILATERAL FEET HAVE BLACK DISCOLORATION PRESENT TO THE TOES. SENSATION REMAINS INTACT BUT PATIENT REPORTED PAIN THROUGH OUT THE DAY, MANAGED WITH PRN MEDICATIONS SEE MAR.
--- NOTE | 2024-10-15 20:00 | NUR ---
ASSUMED CARE OF PT AT 1900. REPORT RECEIVED AT BEDSIDE. PT PRESENTS IN BED. ALERT AND WEARING BIPAP MASK. MAINTAINS SATURATIONS > 90 PERCENT. PT PLAN IS FOR Q 2 HOUR TURNS. OF NOTE: TOES BI LAT CONTINUE WITH PURPLISH COLOR. PER OFFGOING RN THIS HAS IMPROVED SOME. ABLE TO PALPATE PEDAL PULSES ALTHOUGH PULSES ARE VERY FAINT. WILL REVIEW CHART AND PLAN OF CARE FOR THIS PT.
[2024-10-16] VITALS (54 sets, daily range): BP systolic 108–169; BP diastolic 47–101
--- NOTE | 2024-10-16 | NUR ---
PT TAKES OFF HER BIPAP MASK AND YELLS FOR "HELP!" WHAT PT WANTS IS AN ICE CHIP. EXPLAINED TO PT THAT SHE NEEDS HER OXYGEN AND TO NOT REMOVE MASK UNLESS NURSE IS IN THE ROOM TO SWITCH HER TO CANNULA. PT REQUESTS HER MASK BACK ON AFTER SHORT BREAK.
[2024-10-16 05:10] LABS: BASOPHILS ABSOLUTE AUTO 0.05 K/mm3 (0.00-0.23); BASOPHILS PERCENT AUTO 0 % (0-2); EOSINOPHILS ABSOLUTE AUTO 0.14 K/mm3 (0.00-0.68); EOSINOPHILS PERCENT AUTO 1 % (0-6); Hematocrit 34.4 % (33.0-51.0); Hemoglobin 10.6 g/dL (11.5-16.0); IMMATURE GRAN ABSOLUTE AUTO 0.06 K/mm3 (0.00-0.10); IMMATURE GRAN PERCENT AUTO 0 % (0-1); LYMPHOCYTES ABSOLUTE AUTO 1.75 K/mm3 (0.84-5.20); LYMPHOCYTES PERCENT AUTO 13 % (21-46); MONOCYTES ABSOLUTE AUTO 0.67 K/mm3 (0.16-1.47); MONOCYTES PERCENT AUTO 5 % (4-13); Mean Corpuscular HGB 26.4 pg (26.0-34.0); Mean Corpuscular HGB Conc 30.8 g/dL (31.5-36.5); Mean Corpuscular Volume 86 fL (80-100); Mean Platelet Volume 10.1 fL (9.1-12.4); NEUTROPHILS ABSOLUTE AUTO 10.87 K/mm3 (1.96-9.15); NEUTROPHILS PERCENT AUTO 80 % (41-73); NRBC ABSOLUTE 0.04 K/mm3 (0.00-0.02); NRBC Auto 0.3 /100 WBC (0.0-0.2); Platelet Count 104 K/mm3 (150-400); RDW Standard Deviation 61.1 fL (35.1-46.3); Red Blood Cell Count 4.02 M/mm3 (3.80-5.20); White Blood Cell Count 13.54 K/mm3 (4.00-11.30)
[2024-10-16 05:31] LABS: Magnesium, Blood 2.3 mg/dL (1.6-2.4)
[2024-10-16 05:32] LABS: Albumin, Blood 2.4 g/dL (3.4-5.0); Anion Gap 16 mmol/L (3-11); Blood Urea Nitrogen 47 mg/dL (8-24); Bun/Creatinine Ratio 12.1 (12.0-20.0); CO2, Blood 25 mmol/L (21-32); Calcium, Blood 8.5 mg/dL (8.5-10.1); Chloride, Blood 107 mmol/L (98-108); Glomerular Filtration Rate 12 (60-); Glucose, Blood 140 mg/dL (70-99); Phosphorus, Blood 6.7 mg/dL (2.5-4.9); Potassium, Blood 3.8 mmol/L (3.5-5.5); Sodium, Blood 144 mmol/L (136-145)
--- NOTE | 2024-10-16 06:30 | NUR ---
PT USES CALL LIGHT FREQUENTLY FOR SMALL TASK WHICH IS USUALLY STARTED WITH ICE CHIP. PT HAS HAD A MEDIUM LOOSE STOOL WHICH SHE WAS UNAWARE. WAS ABLE TO GET PT TO ASSIST SOME WITH TURNS. DID HAVE SECONDARY RN ASSIST FOR PT COMFORT. WILL CONTINUE TO MONITOR PT, AND WILL REPORT OFF TO ONCOMING RN.
[2024-10-16] MEDS ORDERED: CALCIUM GLUC IN NACL, ISO-OSM 100 ML IV ONE (08:10)
[2024-10-16] MEDS ORDERED: Miconazole Nitrate 2% 85 GM PWD TOP SCH (09:00)
--- NOTE | 2024-10-16 12:10 | NUR ---
REASSESSMENT PT HAS BEEN ALERT AND ORIENTED, BUT NOT TOLERATING BREAKS FROM THE BIPAP. TRIALLED HER ON NC AT 3L AND SPO2 REMAINED IN THE MID 90S, RR 28, BUT PT FELT VERY SHORT OF BREATH AND REQUESTED BIPAP AFTER LESS THAN 10 MINUTES. ALSO TRIALLED ON AIRVO, BUT PT DID NOT LIKE THAT EITHER. RT SWITCHED BIPAP MASK TO TAKE PRESSURE OFF THE BRIDGE OF HER NOSE PT IS DEVELOPING A PRESSURE ULCER. DR. LUGO INFORMED OF THE SORE. SPEECH SAW PT THIS MORNING DURING HER BREAK FROM BIPAP AND SHE FAILED SO DR. LUGO GAE ORDERS FOR DOBHOFF. DOBHOFF WAS PLACED ON FIRST ATTEMPT, TOLERATED WELL, CONFIRMED BY XRAY AND TUBE FEED STARTED PER CHEMICAL ENGINEERING TEACHER. LUNGS ARE SLIGHTLY COARSE. PT HAS CONGESTED, WET COUGH, BUT NOT GETTING SPUTUM UP. SINUS MARILYN IN THE 50S, MAP 73. INCONTINENT OF STOOL THIS AM. العلي WITH SM AMT OF DARK YELLOW URINE. PT'S FAMILY CAME IN AND WAS UPDATED.
[2024-10-16 12:38] LABS: Triglycerides 198 mg/dL (30-160)
[2024-10-16] MEDS ORDERED: NS 250 ML IV PRN (17:55)
--- NOTE | 2024-10-16 18:03 | NUR ---
SHIFT SUMMARY PT HAS CONTINUED TO REQUIRE THE BIPAP THIS SHIFT EXCEPT FOR 5-10 MINTUE BREAKS. DURING THESE BREAKS HER SPO2 IS MID 90S, RR IS MID 20S, BUT PT YELLS OUT ASKING FOR THE BIPAP BECAUSE SHE CAN'T BREATHE. ATTEMPTS MADE TO TALK HER THROUGH IT, BUT PT IS RESISTANT. 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 العلي WITH SMALL AMT OF DARK YELLOW URINE. TOLERATING TUBE FEED SO FAR. THREE LOOSE BMS THIS SHIFT.
--- NOTE | 2024-10-16 20:00 | NUR ---
ASSUMED CARE OF PT AT 1900. REPORT RECEIVED AT BEDSIDE. PT PRESENTS IN BEDSIDE RECLINER CHAIR. PT SLEEPING. TOLERATING BIPAP UNDER NOSE MASK. MAINTAINS SATURATIONS > 90 PERCENT. WILL REVIEW CHART AND PLAN OF CARE FOR THIS PT.
[2024-10-16] MEDS ORDERED: Protein Supplement 30 ML UD PT SCH (21:00)
[2024-10-16] MEDS ORDERED: Arginine/Glutamine/Calcium Hmb 1 Packet PT SCH (21:00)
[2024-10-17] VITALS (35 sets, daily range): BP systolic 94–151; BP diastolic 51–93
--- NOTE | 2024-10-17 01:00 | NUR ---
NEW MEPILEX DRESSING PLACED TO SACRAL AND UPPER GLUTEAL ESCORIATION. DESENEX POWDER APPLIED TO ALL RASH AREAS. NO S/S ADVERSE REACTIONS TO ANTIBIOTIC THERAPY. TOLERATING TUBE FEEDING WELL.
[2024-10-17 05:16] LABS: BASOPHILS ABSOLUTE AUTO 0.03 K/mm3 (0.00-0.23); BASOPHILS PERCENT AUTO 0 % (0-2); EOSINOPHILS ABSOLUTE AUTO 0.02 K/mm3 (0.00-0.68); EOSINOPHILS PERCENT AUTO 0 % (0-6); Hematocrit 33.2 % (33.0-51.0); Hemoglobin 10.1 g/dL (11.5-16.0); IMMATURE GRAN ABSOLUTE AUTO 0.07 K/mm3 (0.00-0.10); IMMATURE GRAN PERCENT AUTO 1 % (0-1); LYMPHOCYTES ABSOLUTE AUTO 0.98 K/mm3 (0.84-5.20); LYMPHOCYTES PERCENT AUTO 8 % (21-46); MONOCYTES ABSOLUTE AUTO 0.58 K/mm3 (0.16-1.47); MONOCYTES PERCENT AUTO 5 % (4-13); Mean Corpuscular HGB 26.5 pg (26.0-34.0); Mean Corpuscular HGB Conc 30.4 g/dL (31.5-36.5); Mean Corpuscular Volume 87 fL (80-100); Mean Platelet Volume 11.5 fL (9.1-12.4); NEUTROPHILS ABSOLUTE AUTO 10.57 K/mm3 (1.96-9.15); NEUTROPHILS PERCENT AUTO 86 % (41-73); NRBC ABSOLUTE 0.03 K/mm3 (0.00-0.02); NRBC Auto 0.2 /100 WBC (0.0-0.2); Platelet Count 103 K/mm3 (150-400); RDW Coefficient Variation 21.2 % (11.7-14.2); RDW Standard Deviation 61.4 fL (35.1-46.3); Red Blood Cell Count 3.81 M/mm3 (3.80-5.20); White Blood Cell Count 12.25 K/mm3 (4.00-11.30)
--- NOTE | 2024-10-17 05:40 | NUR ---
HAVE OPTED TO PLACE FLEXISEAL AFTER DISCUSSION WITH PT AND TEACHING OF THE BENEFITS OF RECTAL TUBE WITH WATERY STOOLS. SO FAR, THIS REMAINS PATENT TO LIQUID BROWN STOOL. PT TURNED Q 2 HOURS USING LIFT SYSTEM. FULL LINEN CHANGE DONE WHEN TRANSFERRED FROM CHAIR TO BED. LIFT SYSTEM USED. PT TOLERATES TRASNFER WELL. NEEDED REASSURANCE DURING TRANSFER. WILL CONTINUE TO MONITOR PT, AND WILL REPORT OFF TO ONCOMING RN.
[2024-10-17 06:33] LABS: Bun/Creatinine Ratio 15.1 (12.0-20.0); Calcium, Blood 8.9 mg/dL (8.5-10.1); Creatinine, Blood 4.44 mg/dL (0.40-1.00); Magnesium, Blood 2.4 mg/dL (1.6-2.4); Phosphorus, Blood 7.3 mg/dL (2.5-4.9); Potassium, Blood 3.7 mmol/L (3.5-5.5)
[2024-10-17] MEDS ORDERED: CALCIUM GLUC IN NACL, ISO-OSM 100 ML IV ONE (08:00)
--- NOTE | 2024-10-17 12:22 | NUR ---
REASSESSMENT PT HAS BEEN MORE ALERT THAN YESTERDAY. GOT HER UP TO THE CHAIR WITH LIFT TO WORK WITH OT. PT AT THAT TIME ASKED TO BE OFF OF BIPAP AND HAS REMAINED OFF FOR ABOUT 2 HOURS AND ON 3L/NC. LUNGS ARE CLEAR, CONGESTED COUGH. PT OCCASIONALLY ASKS FOR THE BIPAP OFF, BUT WHEN REASSURED THAT HER OXYGENATION IS GOOD SHE HAS BEEN ABLE TO STAY ON THE NASAL CANNULA. PT HAS BEEN GOING BETWEEN SINUS MARILYN WITH A FIRST DEGREE AND BBB, AND AFIB WITH RATE IN THE 70S, MAP 99. TUBE FEED INFUSING WITHOUT SIGNS OF INTOLERANCE. RECTAL TUBE IN PLACE, LEAKED WHILE IN CHAIR. العلي DRAINING YELLOW URINE. PT'S FAMILY CAME BY THIS MORNING AND WAS UPDATED. DIALYSIS IN THE ROOM NOW.
[2024-10-17 14:37] LABS: HBV CORE ANTIBODIES,TOTAL Negative (Negative)
--- NOTE | 2024-10-17 17:41 | NUR ---
SHIFT SUMMARY PT SPENT ALL OF HER DAY UP IN THE CHAIR, EXCEPT FOR WHEN SHE WAS GETTING DIALYSIS. SHE WAS ON THE NC AND ABLE TO BE TITRATED DOWN TO 2L/NC OVER THE SHIFT. SHE WENT BACK ON BIPAP AT 1730 AT HER REQUEST. TUBE FEEDS WERE ADVANCED TO GOAL. THIS EVENING DOBHOFF WAS FOUND TO BE ABOUT 20CM OUT. TUBE FEED STOPPED AND DOBHOFF ADVANCED. REPEAT XRAY CONFIRMED PLACEMENT AND TUBE FEEDS RESTARTED. LUNGS ARE CLEAR, STILL A CONGESTED COUGH. SEEN BY PHYSICAL THERAPY THIS AFTERNOON. OPEN AREA ON TOE CLEANED WITH BETADINE AND WET TO DRY DRESSING PLACED PER PODIATRY.
--- NOTE | 2024-10-17 20:12 | NUR ---
ASSUMED CARE OF PT AT 1900. REPORT RECEIVED AT BEDSIDE. PT PRESENTS IN BED. ALERT AND ORIENTED. PLEASANT AND COOPERATIVE WITH CARE AND ASSESSMENT. WEARING BIPAP. ACKNOWLEDGES THAT SHE IS FEELING SOMEWHAT BETTER. FLEXISEAL IN PLACE. PATENT AT THIS TIME. WILL REVIEW CHART AND PLAN OF CARE FOR THIS PT.
[2024-10-18] VITALS (42 sets, daily range): BP systolic 98–149; BP diastolic 58–94
--- NOTE | 2024-10-18 05:30 | NUR ---
PT HAS BEEN ABLE TO REST THIS NIGHT WITHOUT THE LEVEL OF ANXIOUSNESS THAT SHE HAS BEEN HAVING ON EARLIER NIGHTS. PT TOLERATING REPOSITIONING Q 2 HOURS. FLEXISEAL REMAINS INTACT. NO LEAKAGE NOTED. MINIMINAL URINE OUTPUT AT 75 ML. NO S/S ADVERSE REACTIONS TO ANTIBIOTIC THERAPY. CONTINUES WITH COMPLIANCE WITH BIPAP THROUGH THE NIGHT. PT INFORMED THAT THE PLAN WOULD BE FOR HER TO GET UP OUT OF BED FOR MEALS, AND BE PLACED BACK TO CANNULA FOR OXYGEN. PT VERBALIZES UNDERSTANDING. WILL CONTINUE TO MONITOR PT, AND WILL REPORT OFF TO ONCOMING RN.
[2024-10-18 05:51] LABS: Magnesium, Blood 2.2 mg/dL (1.6-2.4); Phosphorus, Blood 4.6 mg/dL (2.5-4.9)
[2024-10-18 07:11] LABS: Hemoglobin 9.6 g/dL (11.5-16.0); Mean Corpuscular HGB 26.2 pg (26.0-34.0); Mean Corpuscular Volume 87 fL (80-100); NRBC ABSOLUTE 0.03 K/mm3 (0.00-0.02); NRBC Auto 0.3 /100 WBC (0.0-0.2); Platelet Count 88 K/mm3 (150-400); RDW Coefficient Variation 21.3 % (11.7-14.2); RDW Standard Deviation 62.5 fL (35.1-46.3); Red Blood Cell Count 3.66 M/mm3 (3.80-5.20); White Blood Cell Count 10.17 K/mm3 (4.00-11.30)
--- NOTE | 2024-10-18 07:22 | NUR ---
ASSUMPTION OF CARE: ASSUMED CARE OF PATIENT. PATIENT OPENS EYES AND SHAKES HEAD IN RESPONSE TO VERBAL STIMULI AND YES/NO QUESTIONS. PATIENT QUICKLY FALLS BACK ASLEEP. PATIENT ON BIPAP 16/16/8/30% WITH RR IN THE LOW 20S. SPO2 >94%. VITALS STABLE WITH MAPS >65 AND HR IN THE 70S. العلي IN PLACE AND DRAINING FREELY. RECTAL TUBE IN PLACE, NO LEAKAGE AT THE INSERTION SITE. TUBE FEED NEPHRO 1.8 INFUSING AT 35ML/HR TO DOBHOFF WITH DEPTH ABOUT 72 CM. PATIENT RESTING COMFORTABLY WITHOUT SIGNS OF PAIN/DISCOMFORT.
[2024-10-18] MEDS ORDERED: Anticoagulant Sod Citrate Soln 3 ML SYR INJ PRN (07:45)
[2024-10-18] MEDS ORDERED: Protein Supplement 30 ML UD PT SCH (09:00)
[2024-10-18] MEDS ORDERED: Lidocaine 2% Viscous Soln 20 ML,Nystatin 100,000 Unit/ml Susp 20 ML,Mag Hydrox/Al Hydro... MT PRN (13:35)
--- NOTE | 2024-10-18 18:37 | NUR ---
SHIFT SUMMARY: NEURO: PATIENT SHAKING HER HEAD YES/NO IN RESPONSE TO QUESTIONS. PATIENT DENIES NUMBNESS/TINGLING. PATIENT REPORTED SOME BACK PAIN TODAY RELATED TO POSITIONING IN CHAIR. THIS RESOLVED WITH GETTING BACK TO BED. OTHERWISE, PATIENT DENIED PAIN THROUGHOUT THE SHIFT. PATIENT ABLE TO WIGGLE TOES AND IS ABLE TO WEAKLY MOVE HER ARMS. PATIENT REPORTS FEELING VERY FATIGUED. SHE SLEPT THROUGHOUT THE DAY. PATIENT WAKENS EASILY TO VERBAL STIMULI. PATIENT UP TO THE CHAIR DURING THE AFTERNOON VIA LIFT. PATIENT TOLERATED WELL. RESPIRATORY: PATIENT TRIALED ON CPAP, BUT TRANSITIONED BACK TO HER HISTORICAL BIPAP SETTINGS. THIS FELT TOO STRONG FOR HER, AND SHE WAS TRANSITIONED BACK TO 16/8/21%. HOWEVER, AFTER A COUPLE OF HOURS AT THIS SETTING, PATIENT REPORTED SOME SHORTNESS OF BREATH AND SHE WAS HAVING DIFFICULTY MAINTAINING SPO2 >88%. MARITA, RT, TITRATED PATIENT UP TO 18/10/21%. PATIENT TOLERATED THIS WELL AND SPO2 >90%. RR IN THE 20S. VOLUMES IN THE 400S. CARDIAC: PATIENT DENIED CHEST PAIN OR PRESSURE. PEDAL PULSES REQUIRED DOPPLER. TOES CONTINUE TO BE PURPLE. EXTREMITIES ARE PALE AND COOL. PATIENT HAD AN IRREGULAR RHYTHM THROUGHOUT THE SHIFT. FIRST DEGREE AND BUNDLE BRANCH BLOCK APPEAR TO BE PRESENT. HR IN THE 50S-70S. GI/: OUTPUT IN RECTAL TUBE IS VERY DARK BROWN. IT IS LIQUID AND FREELY FLOWING THROUGH TUBING. PATIENT HAD LIMITED URINE OUTPUT TODAY. PATIENT HAD DIALYSIS IN THE ROOM. PATIENT REPORTED FEELING TOO FATIGUED FOR SPEECH THERAPY ASSESSMENT. PSYCHSOCIAL: PATIENT WAS WITHDRAWN AND REPORTED FEELING DEPRESSED TODAY. PROVIDED ENCOURAGEMENT TO THE PATIENT. ENCOURAGED FAMILY AND FRIENDS TO COME VISIT THE PATIENT. MADE ROOM MODIFICATIONS TO SUIT THE PATIENT'S PREFERENCES.
[2024-10-19] VITALS (14 sets, daily range): BP systolic 115–142; BP diastolic 54–124
[2024-10-19 04:52] LABS: Magnesium, Blood 2.2 mg/dL (1.6-2.4); Phosphorus, Blood 3.7 mg/dL (2.5-4.9)
--- NOTE | 2024-10-19 06:25 | NUR ---
SHIFT SUMMARY PATIENT SLEPT VERY LITTLE THROUGH SHIFT. USES CALL LIGHT VERY OFTEN. ASK NURSE TO TAKE OFF BIPAP AND PUT NC. AFTER A FEW MINUTES WANTS BIPAP BACK ON. PATIENT DOES NOT USE VOICE TO COMMUNICATE TRYS RARELY WHISPERS. PUTS AND DOES HAND GESTURES BUT HARD TO UNDERSTAND WHAT PATIENT WANTS. PATIENT HAS العلي DRAINING TO GRAVITY VERY LOW URINE OUTPUT (ANDRE) MD AWARE. HAS RECTAL TUBE NO BLOOD COLORED STOOL ON SHIFT, TUBE LEAKED TWICE PATIENT WAS CLEANED UP AND POWDER AND CREAM WAS APPLIED TO ODETTE AREA. HR IN TH 60'S, SBP 115-125'S. BIPAP 16/8/28% O2 SATS 95-99%. A&OX3. COMMUNICATION CARD WITH PICTURES IN ROOM. CALL LIGHT WITHIN REACH
--- NOTE | 2024-10-19 07:15 | NUR ---
ASSUMPTION OF CARE: ASSUMED CARE OF PATIENT. PATIENT SLEEPING. AWAKENS TO VERBAL STIMULI. DENIES PAIN OR DISCOMFORT AT THIS TIME. VITALS STABLE WITH MAPS >65. HR IN THE 60S. BIPAP SETTINGS ///%. العلي IN PLACE AND DRAINING FREELY. MINIMAL DARK YELLOW OUTPUT. RECTAL TUBE IN PLACE AND DRAINING FREELY. VERY DARK BROWN LIQUID IN COLLECTION BAG. PATIENT DENIES NEEDS AT THIS TIME.
[2024-10-19 07:58] LABS: Bun/Creatinine Ratio 17.8 (12.0-20.0); Calcium, Blood 9.4 mg/dL (8.5-10.1); Creatinine, Blood 2.59 mg/dL (0.40-1.00)
[2024-10-19] MEDS ORDERED: Potassium Chloride 20 MEQ/15 ML UDC PO ONE (10:40)
[2024-10-19] MEDS ORDERED: Potassium Chloride 20 MEQ TabCR PO ONE (12:10)
[2024-10-19] MEDS ORDERED: Insulin Human Lispro 100 Units/ML 3ML Syringe SC SCH (12:30)
[2024-10-19] MEDS ORDERED: Citalopram Hydrobromide 20 MG Tab PO SCH (13:00)
[2024-10-19] MEDS ORDERED: Insulin Glargine-Yfgn 100 Unit/mL 3 ML SYR SC SCH (13:00)
--- NOTE | 2024-10-19 17:54 | NUR ---
SHIFT SUMMARY: NEURO: PATIENT IS VERY DROWSY. SHE RESPONDS EASILY TO VERBAL STIMULI. PATIENT WILL REPEAT HERSELF MULTIPLE TIMES AND IS ABLE TO MAKE HER BASIC NEEDS KNOWN. TODAY, PATIENT ABLE TO LIFT HER ARMS OVER HER HEAD DURING HER BED BATH. PATIENT ABLE TO WEAKLY LIFT HER RIGHT LEG. PATIENT CONTINUES TO BE VERY FATIGUED. PATIENT UP TO CHAIR VIA LIFT FOR A FEW HOURS THIS AFTERNOON. RESPIRATORY: PATIENT EXPERIENCED SHORTNESS OF BREATH AFTER BEING IN THE CHAIR FOR A FEW HOURS TODAY. RT CHANGED SETTINGS AND PATIENT BACK TO THE BED. THIS HELPED ALLEVIATE HER SHORTNESS OF BREATH. BY THE END OF SHIFT, SETTINGS WERE 16/18/10/28%. RR 25-32. SPO2 >90%. PATIENT WORE NASAL CANNULA 3-4 TIMES TODAY FOR ABOUT 5 MINUTES EACH TIME. UNABLE TO HEAR LUNG SOUNDS IN LOWER RIGHT LOBE. DR. WOODRUFF AWARE. CARDIAC: PATIENT'S VITALS STABLE WITH MAPS >65. SBP IN THE 120S-140S. PATIENT DENIES CHEST PAIN OR DISCOMFORT. GI/: BY THE END OF SHIFT, STOOL COLOR WAS MEDIUM BROWN. CONTINUES TO BE LIQUID. URINE OUTPUT CONTINUES TO BE VERY LOW. DR. ALANIZ AWARE. COLOR HAS DARKENED. NEPRO 1.8 CONTINUES AT 35 ML/HR WITH 30ML Q4HR. PSYCHSOCIAL: SPOKE WITH FAMILY AND PATIENT ABOUT ENCOURAING PATIENT TO ENGAGE IN HER CARE AND INCREASE HER ACTIVITY. PATIENT REPORTED WITH PROMPTING THAT SHE HAD BEEN TAKING AN ANTI-DEPRESSANT UP UNTIL A FEW MONTHS AGO. DR. WOODRUFF NOTIFIED AND NEW ANTI-DEPRESSANT STARTED TODAY. PATIENT CONTINUES TO BE WITHDRAWN AND FLAT.
[2024-10-20 00:24] VITALS: BP 138/74
[2024-10-20 03:39] VITALS: BP 131/73
[2024-10-20 04:54] LABS: Hematocrit 36.4 % (33.0-51.0); Hemoglobin 10.8 g/dL (11.5-16.0); Mean Corpuscular HGB 26.7 pg (26.0-34.0); Mean Corpuscular HGB Conc 29.7 g/dL (31.5-36.5); Mean Corpuscular Volume 90 fL (80-100); Mean Platelet Volume 11.6 fL (9.1-12.4); NRBC ABSOLUTE 0.04 K/mm3 (0.00-0.02); NRBC Auto 0.3 /100 WBC (0.0-0.2); Platelet Count 114 K/mm3 (150-400); RDW Standard Deviation 68.6 fL (35.1-46.3); Red Blood Cell Count 4.05 M/mm3 (3.80-5.20); White Blood Cell Count 14.51 K/mm3 (4.00-11.30)
--- NOTE | 2024-10-20 05:05 | NUR ---
SHIFT SUMMARY PT RESTING COMFORTABLY THROUGHOUT NIGHT. A&OX3/4. VSS SWITCHING BETWEEN 4L NC AND HOME BIPAP >92%. REMAINS AFEBRILE. PATIENT VOICING NEEDS BUT HARD TO UNDERSTAND HOWEVER ABLE TO MAKE NEEDS KNOWN. PT SINUS MARILYN THROUGHOUT NIGHT IN 50s ON MONITOR. PT العلي DRAINING TO GRAVITY WITH VERY LOW OUTPUT AND TEA COLORED.TEAM AWARE. RECTAL TUBE REMAINS IN PLACE WITH MINIMAL BROWN OUTPUT. PT GIVEN PRNs PER DEC FOR PAIN WITH GOOD RELIEF. PT TURNED Q2HR. NO FURTHER QUESTIONS OR CONCERNS AT THIS TIME. CALL ALCANTAR WITHIN REACH.
[2024-10-20 05:25] LABS: Albumin, Blood 2.5 g/dL (3.4-5.0); Anion Gap 13 mmol/L (3-11); Blood Urea Nitrogen 63 mg/dL (8-24); Bun/Creatinine Ratio 18.4 (12.0-20.0); CO2, Blood 25 mmol/L (21-32); Calcium, Blood 9.1 mg/dL (8.5-10.1); Chloride, Blood 106 mmol/L (98-108); Creatinine, Blood 3.42 mg/dL (0.40-1.00); Glomerular Filtration Rate 14 (60-); Glucose, Blood 240 mg/dL (70-99); Magnesium, Blood 2.4 mg/dL (1.6-2.4); Phosphorus, Blood 4.7 mg/dL (2.5-4.9); Potassium, Blood 3.3 mmol/L (3.5-5.5); Sodium, Blood 141 mmol/L (136-145)
[2024-10-20 08:00] VITALS: BP 140/80
[2024-10-20 12:11] VITALS: BP 117/72
[2024-10-20 15:26] VITALS: BP 143/83
[2024-10-20 16:09] LABS: VITAMIN D,1,25-DIHYDROXY 13.3 pg/mL (19.9-79.3)
--- NOTE | 2024-10-20 18:24 | NUR ---
SHIFT SUMMARY: PT LETHARGIC THIS SHIFT, WAKES EASILY TO STAFF IN ROOM TALKING TO HER BUT DOESN'T STAY AWAKE FOR LONG. PT ANSWERS QUESTIONS MOSTLY BY NODDING/SHAKING HER HEAD, OR BY USING HAND GESTURES. PT HAS BEEN ABLE TO MAKE NEEDS KNOWN. PT TOLERATES HOME BIPAP T/OUT SHIFT, DECLINES OFFERS TO TAKE BREAKS. O2 SATS >92%. MARILYN RHYTHM ON MONITOR W/ST DEPRESSION, RATE MOSTLY 50s, PT DENIES CP. NG TUBE CONTINUES IN PLACE W/TF AT GOAL RATE OF 35 ML/HR OF NEPRO 1.8. INDWELLING العلي CONTINUES IN PLACE, DRAINING JULEE/TEA COLORED URINE TO GRAVITY, LOW OUTPUT THIS SHIFT OF 150 ML. RECTAL TUBE ALSO CONTINUES IN PLACE, APPROX 100 ML OUTPUT OF BROWN LIQUID STOOL THIS SHIFT. WOUND CARE AND DRESSING CHANGES PERFORMED THIS SHIFT. PT REPOSITIONED Q2H, PT HAS BEEN ATTEMPTING TO ASSIST W/TURNS AND REPOSITIONING. PT RESTING QUIETLY IN BED AT THIS TIME W/CALL LIGHT IN REACH.
[2024-10-20 20:29] VITALS: BP 137/76
[2024-10-21] VITALS (23 sets, daily range): BP systolic 103–152; BP diastolic 52–98
[2024-10-21] MEDS ORDERED: HyDROXyzine HCl 25 MG Tab PT PRN (01:40)
--- NOTE | 2024-10-21 05:14 | NUR ---
SHIFT SUMMARY PT REMAINS A&OX4. VSS ON BIPAP/4LNC. PT RESTLESS THROUGHOUT NIGHT. PRNS GIVEN PER DEC. RESIDENT NOTIFIED FOR MORE ORDERS. PRN ATARAX GIVEN WITH GOOD RELIEF. العلي CARE DONE WITH العلي PATENT AND DRAINING TO GRAVITY. RECTAL TUBE REMAINS INTACT WITH MINIMAL LEAKAGE AND LIQUID BROWN STOOL OUTPUT CONTINUES. PT TURNED Q2HR FOR RELIEF. PT GIVEN ICE CHIPS THROUGHOUT NIGHT PER REQUEST OF PT. ABX GIVEN PER DEC. NO FURTHER QUESTIONS OR CONCERNS AT THIS TIME. CALL ALCANTAR WITHIN REACH.
[2024-10-21] MEDS ORDERED: Anticoagulant Sod Citrate Soln 3 ML SYR INJ PRN (07:15)
[2024-10-21 07:23] LABS: Albumin, Blood 2.5 g/dL (3.4-5.0); Anion Gap 14 mmol/L (3-11); Blood Urea Nitrogen 83 mg/dL (8-24); CO2, Blood 25 mmol/L (21-32); Calcium, Blood 9.5 mg/dL (8.5-10.1); Chloride, Blood 105 mmol/L (98-108); Creatinine, Blood 3.77 mg/dL (0.40-1.00); Glomerular Filtration Rate 13 (60-); Glucose, Blood 239 mg/dL (70-99); Phosphorus, Blood 5.9 mg/dL (2.5-4.9); Potassium, Blood 3.4 mmol/L (3.5-5.5); Sodium, Blood 141 mmol/L (136-145)
[2024-10-21] MEDS ORDERED: Alteplase Recombinant 2 MG / Vial IV SCH (10:10)
--- NOTE | 2024-10-21 18:35 | NUR ---
SHIFT SUMMARY: PT ALERT MAJORITY OF THE SHIFT, ORIENTED TO SELF, LOCATION, SITUATION. PT MORE VOCAL TODAY, RESTLESS IN BED, CALLING OUT FREQUENTLY SAYING "HELP ME", BUT DOESN'T ELABORATE ON WHAT SHE WANTS HELP WITH WHEN STAFF IN ROOM. PT HAS LOW MOTIVATION AND HAS BEEN HEAVILY ENCOURAGED TODAY TO PARTICIPATE W/CARE BY HELPING WITH TURNS, WORK WITH PT/OT, ETC. PT REQUESTS BIPAP AFTER MINIMAL BREAKS USING NC, O2 SATS >95% ON EITHER DEVICE. MARILYN RHYTHM CONTINUES, RATE MOSTLY 50s. DIALYSIS COMPLETED IN ROOM, APPROX 4 L REMOVED, POSSIBLE DIAYLSIS AGAIN TOMORROW. LOW U.O. THIS SHIFT, العلي PATENT, DRAINING JULEE/TEA COLORED URINE TO GRAVITY. RECTAL TUBE ALSO CONTINUES IN PLACE, DRAINING BROWN LIQUID STOOL. PT PULLS HER DOBHOFF OUT THIS SHIFT. SUCTIONING PERFORMED BY RT, NO TF LIQUID SUCTIONED BUT A LARGE THICK SPUTUM WAS OBTAINED AND SENT TO LAB FOR ANALYSIS. DOBHOFF REPLACED, XRAY HAS BEEN OBTAINED TO CHECK FOR PLACEMENT BEFORE RESUMING TF. WOUND CARE AND DRESSING CHANGES PERFORMED THIS SHIFT. PT HAS BEEN REPOSITIONED FREQUENTLY, ALLOWED THIS RN TO PERFORM ORAL CARE x2 TDAY WELL THE DENTAL HYGIENIST.
[2024-10-22] VITALS (25 sets, daily range): BP systolic 91–129; BP diastolic 41–81
--- NOTE | 2024-10-22 00:14 | NUR ---
APPROX 1958 MD CAMILO CALLED [facility] AND APPROVED DOBHOFF PLACEMENT FOR USE. AUSCULTATED ABDOMEN, GAVE MED, FWF AND RESTARTED NEPRO
--- NOTE | 2024-10-22 05:44 | NUR ---
SHIFT SUMMARY ASSUMED CARE OF PT AT APPROX 1900. PT A&O2 CONFUSED TO TIME AND SITUATION. PT DOBHOFF WAS OUT OF POSITION BASED ON WHAT PREVIOUS SHIFT REPORTED. CALLED TO GET VERIFICATION OF PLACEMENT ORDER, ORDER GIVEN, CONTACTED RAD FOR NOTIFICATION. PT CONTINUES TO YELL OUT T/O THE NIGHT FOR HELP BUT ONCE IN THE ROOM, PT CAN NOT SPECIFY WHAT SHE NEEDS. VSS, PT WAS EITHER ON 4LNC OR CPAP, WHICH SHE ALSO ASKED TO REMOVE AND/OR PLACE BACK ON SEVERAL TIMES OVERNIGHT. REPOSITIONED PT Q2HR AND PROVIDED ORAL CARE Q4HR. NOTIFIED MD FOR AUTHORIZATION TO USE DOBHOFF, APPROVED. RESTARTED NEPRO AT 35ML/HR W Q4H 30ML FWF W NEW BAGS. MEDS GIVEN VIA DOBHOFF WITH NO ISSUE. RECTAL TUBE IN PLACE, WOUND CARE DRESSING CHANGED ON LJ FEET PER MD ORDER. PT DENIED CP/PRESSURE. BED IN LOWEST POSITION AND CALL LIGHT WITHIN REACH.
[2024-10-22] MEDS ORDERED: Anticoagulant Sod Citrate Soln 3 ML SYR INJ PRN (07:30)
--- NOTE | 2024-10-22 16:49 | NUR ---
Spiritual care visit conducted. Patient is lying in bed and alert. She immediately says, "I want to " and "help me." I ask her if she felt better would she still want to and she said, "No." I ask her what help she needs and she said, "I want to breathe." We discuss her fears and she nods affirmingly when asked if she is afraid to . I talk to ther about the bracelet on her wrist that says, "For God so loved the world that he gave his only begotten Son that whosoever would believe in Him will have eteranl life." She tells me that she believes and I affirm that according to your own bracelet her future is secure. She says that she is afraid of dying and not beign able to breathe. We talk about the amazing clinical team that are working around the clock to help with the discomfort and air hunger and that she really is getting help. I provided therapeutic listening, theological insights, anxiety containment and prayer. Patient showed signs of reduced stress about her future and her fears.
--- NOTE | 2024-10-22 16:59 | NUR ---
Met with the patient today, attempted to have a conversation with her, but she appeared unable to carry on any meaningful dialogue. The bedside RN changed the bipap mask to nasal cannula, but the patient did not tolerate it well. She began to cry out, "Help! Help!" although her 02 sats remained at 100%. She did not respond further, and shook her head "yes" when I asked if she would rather try talking again tomorrow. Reached out by phone to pt's 2 sons Trung and Dave, and also spoke with pt's brother Leroy. Both sons acknowledge the patient is physically declining, and we are planning for a conference call tomorrow after I have a chance to speak with the patient again, to begin goals of care conversation.
--- NOTE | 2024-10-22 17:40 | NUR ---
SHIFT SUMMARY PT IS ALERT TO SELF, FAMILY AND PLACE. SHE CALLS OUT "HELP, HELP" FREQUENTLY BUT DOES NOT SPECIFY TO WHAT SHE NEEDS HELP WITH. BP AND HR STABLE. TEMPERATURE NOTED TO BE 100.6, DR. ROBIN IS AWARE. SPO2 HAS BEEN MAINTAINED >95% VIA CPAP W/ 3L BLEED IN FOR MAJORITY OF SHIFT, SPO2 MAINTAINED >95% VIA 3L NC BUT PT HAS STATED PREFERANCE FOR CPAP MACHINE DESPITE ENCOURAGEMENT TO WEAR NC. RESPIRATORY THERAPIST ILDEFONSO ZAVALA PROVIDED DEEP SUCTION AT BEGINNING OF SHIFT AND PT'S RESPIRATIONS SOUNDED MUCH IMPROVED BUT SHE DECLINED SUCTION LATER IN SHIFT. MODERATE AMOUNT OF BROWN SPUTUM WAS SUCTIONED WHEN DEEP SUCTIONED THIS AM. SHE HAS A WEAK NON-PRODUCTIVE COUGH. SHE DECLINED ORAL CARE 2 X DURING SHIFT. SHE NEEDED MUCH ENCOURAGEMENT TO PARTICIPATE W/ OCCUPATIONAL THERAPY. SHE DECLINED COMPLETING SPEECH THERAPY SESSION DURING SHIFT. Q2 AND PRN REPOSITIONING PROVIDED FOR COMFORT AND TO KEEP OFF OF PRESSURE POINTS. THIS RN HAS CHANGED MEPILEX DRESSING ON BOTTOM. RECTAL TUBE IS IN PLACE AND IS DRAINING TO GRAVITY LIQUID BROWN OUTPUT, RECTAL TUBE HAS SMALL AMOUNT OF LEAKAGE, FREQUENT ODETTE CARE PROVIDED TO KEEP SKIN D/C/I. العلي CATHETER IS IN PLACE, OLIGURIA NOTED. PT WENT TO HEMODIALYSIS THIS AM. SHE HAS HAD FAMILY AT BEDSIDE DURING SHIFT. NG TUBE IS IN PLACE AND INFUSING AT GOAL RATE OF 35ML/HR W/ Q4 FLUSHES OF WATER. CALL LIGHT IS W/IN REACH.
[2024-10-23 02:39] VITALS: BP 134/70
[2024-10-23 04:00] VITALS: BP 96/75
[2024-10-23 04:24] LABS: BASOPHILS ABSOLUTE AUTO 0.07 K/mm3 (0.00-0.23); BASOPHILS PERCENT AUTO 1 % (0-2); EOSINOPHILS ABSOLUTE AUTO 0.21 K/mm3 (0.00-0.68); EOSINOPHILS PERCENT AUTO 2 % (0-6); Hematocrit 34.9 % (33.0-51.0); Hemoglobin 10.2 g/dL (11.5-16.0); IMMATURE GRAN ABSOLUTE AUTO 0.08 K/mm3 (0.00-0.10); IMMATURE GRAN PERCENT AUTO 1 % (0-1); LYMPHOCYTES ABSOLUTE AUTO 1.63 K/mm3 (0.84-5.20); LYMPHOCYTES PERCENT AUTO 12 % (21-46); MONOCYTES ABSOLUTE AUTO 1.03 K/mm3 (0.16-1.47); MONOCYTES PERCENT AUTO 8 % (4-13); Mean Corpuscular HGB 26.8 pg (26.0-34.0); Mean Corpuscular HGB Conc 29.2 g/dL (31.5-36.5); Mean Corpuscular Volume 92 fL (80-100); Mean Platelet Volume 12.3 fL (9.1-12.4); NEUTROPHILS ABSOLUTE AUTO 10.36 K/mm3 (1.96-9.15); NEUTROPHILS PERCENT AUTO 77 % (41-73); NRBC Auto 0.7 /100 WBC (0.0-0.2); Platelet Count 130 K/mm3 (150-400); RDW Coefficient Variation 23.2 % (11.7-14.2); RDW Standard Deviation 73.3 fL (35.1-46.3); Red Blood Cell Count 3.81 M/mm3 (3.80-5.20); White Blood Cell Count 13.38 K/mm3 (4.00-11.30)
[2024-10-23 04:45] LABS: Albumin, Blood 2.9 g/dL (3.4-5.0); Anion Gap 12 mmol/L (3-11); Blood Urea Nitrogen 66 mg/dL (8-24); Bun/Creatinine Ratio 22.4 (12.0-20.0); CO2, Blood 28 mmol/L (21-32); Calcium, Blood 9.6 mg/dL (8.5-10.1); Chloride, Blood 107 mmol/L (98-108); Creatinine, Blood 2.94 mg/dL (0.40-1.00); Glomerular Filtration Rate 17 (60-); Glucose, Blood 236 mg/dL (70-99); Phosphorus, Blood 3.2 mg/dL (2.5-4.9); Potassium, Blood 3.8 mmol/L (3.5-5.5); Sodium, Blood 143 mmol/L (136-145)
--- NOTE | 2024-10-23 06:06 | NUR ---
DOBHOFF REMOVAL PT BEGAN CALLING OUT FOR HELP AND AND I WENT IN TO SEE HOW WE COULD HELP HER. WE WERE GETTING HER REPOSITIONED AND COMFORTABLE AND NOTICED THAT THE DOBHOFF WAS AT 50 CM AT THE NARE WHEN IT SHOULD HAVE BEEN AT 55. TF'S WERE HELD AND WE ADVANCED THE TUBE TO THE CORRECT DEPTH OF 55 CM. PT STARTED CHEWING ON SOMETHING AND POINTING TO HER MOUTH, GEN LOOKED IN AND SAW THAT IT WAS THE DOBHOFF COILED IN HER MOUTH. I REMOVED THE DOBHOFF AT 0555 AND LET THE ROCK WOOL APPLICATOR, ELSA, KNOW.
--- NOTE | 2024-10-23 06:44 | NUR ---
WOUND CARE TO BLE COMPLETED.
[2024-10-23 07:40] VITALS: BP 107/60
[2024-10-23] MEDS ORDERED: FentaNYL Citrate 50 MCG/ML 2 ML Injection IV PRN (08:10)
--- NOTE | 2024-10-23 09:28 | NUR ---
ASSUMPTION NOTE: THIS RN TO ASSUME CARE OF PATIENT. PATIENT ON CPAP MACHINE AND WAS SATTING >92%. VITAL SIGNS STABLE. PATIENT ABLE TO ANSWER ORIENTATION QUESTIONS EXCEPT GIVING THE DATE/TIME. PATIENT REFUSED TO TAKE OFF MASK WHEN PROMPTED. MD CAME TO BEDSIDE AND REQUESTED PATIENT BE TAKEN OFF MASK AND PLACED A VENTI MASK ON. VENTI MASK PLACED AND PATIENT SATTING >92%. PATIENT YELLING OUT HELP AND ASKING TO BE PLACED BACK ON CPAP MASK. PATIENT EDUCATED ON KEEPING THE MASK OFF AND NEEDING TO SLOW DOWN BREATHING. PATIENT VITAL SIGNS STABLE AND PATIENT REQUESTING A WARM BLANKET.
[2024-10-23 12:34] VITALS: BP 113/71
--- NOTE | 2024-10-23 12:45 | NUR ---
CARE GOALS CHANGE - START COMFORT CARE THIS PC RN SPOKE WITH PT'S SON, CARLOTA BY PHONE ([phone]) THIS AFTERNOON. CARLOTA STATED, "MY MOM HAS BEEN DONE FOR A LONG TIME. WE AREN'T SURPRISED, SHE HASN'T TAKEN TAKEN CARE OF HERSELF FOR YEARS." CARLOTA INQUIRED ABOUT HOSPICE CARE. EDUCATION PROVIDED ON COMFORT VS HOSPICE. HE IS AGREEABLE TO PT STARTING COMFORT CARE NOW. OBTAINED COMFORT CARE ORDERS FROM PROVIDER. PRIMARY RN AND CM UPDATED ON CHANGES.
--- NOTE | 2024-10-23 13:22 | NUR ---
Spiritual care visit conducted. Patient is lying in bed and yelling, "Help me, help me." I try to understand what she needs help with and she only says, "I wnat to breathe." We discuss ways to feel peace and what help looks like to her. She keeps saying that no one will help her breathe. I point out the SPEEDOMETER INSPECTOR and RN that keep coming in and out of her room doing everything they can to make her comfortable and to breathe well. I point out that when she is talking she is breathing well with no struggle or gaps in words or sentences. She then talks about the fear that she has. She fears even getting to the place where she might lose control of maintaining her breathing. I talk about ways to work through fear. She then starts yelling out, "Help me, help me!" I then ask if I could pray for her and she welcomes prayer. She is still and quiet for the prayer and voices appreciation for the prayer and is restful until I step out of the room and then she starts back in with the "Help me, Help me." I will cotninue to remain available to patient and family.
[2024-10-23] MEDS ORDERED: Morphine Sulfate 20 MG/1ML 1 ML Oral Syringe SL PRN (14:30)
[2024-10-23] MEDS ORDERED: Atropine Sulfate 1% Opth Soln 2ML BTL SL PRN (14:30)
[2024-10-23] MEDS ORDERED: Haloperidol Lactate Inj. 5 MG/ML Injection IV PRN (14:30)
[2024-10-23] MEDS ORDERED: LORazepam 1 MG Tab PO PRN (14:30)
[2024-10-23] MEDS ORDERED: Acetaminophen 650 MG Supp PR PRN (14:30)
[2024-10-23] MEDS ORDERED: Promethazine HCl 25 MG Supp PR PRN (14:30)
[2024-10-23] MEDS ORDERED: Scopolamine Hydrobromide Patch TOP PRN (14:30)
--- NOTE | 2024-10-23 16:49 | NUR ---
PATIENT CHANGED AND WHOLE BEDDING CHANGED WELL. RECTAL TUBE WAS REMOVED AND PATIENT TOLERATED IT WELL.
--- NOTE | 2024-10-23 17:42 | NUR ---
TRANSFER NOTE: PATIENT TRANSFERRED TO MEDICAL FLOOR VIA BED WITH ALL PERSONAL BELONGINGS. FAMILY AT BEDSIDE NOTIFIED BROTHER AND SON ABOUT MOVE. PATIENT AWARE OF THE MOVE. IS ALERT AND ORIENTED X2 AND WAS NOT ABLE TO GIVE DATE OR SITUATION. PATIENT IS COMFORT CARE AND ORDES WERE PLACED FOR IT.
--- NOTE | 2024-10-23 17:43 | NUR ---
TRANSFER NOTE: PT TRANSFERRED FROM [facility], REPORT RECEIVED FROM ASHLEY DOE. PT IN A LIFT ROOM. NO REQUESTS AT THE TIME OF TRANSFER. العلي IN PLACE AND DRAINING. FRIEND AT THE BS. PT APPEARS COMFORTABLE.
--- NOTE | 2024-10-23 18:25 | NUR ---
SHIFT SUMMARY NO ACUTE CHANGES SINCE TRANSFER. PT ALERT AND ORIENTED, ABLE TO MAKE NEEDS KNOWN. IN AND OUT OF SLEEP SINCE TRANSFER. REPOSITIONED SINCE TRANSFER, PT TOLERATED IT OKAY. CPAP IN PLACE. FAMILY AT THE BS. العلي IN PLACE AND PATENT. CALL LIGHT WITHIN REACH, BED LOCKED AND IN THE LOWEST POSITION. WILL REPORT TO ONCOMING NURSE.
--- NOTE | 2024-10-24 04:27 | NUR ---
PATIENT AO4. PATIENT ON COMFORT MEASURES. PATIENT MAKES NEEDS KNOWN. PATIENT ON BIPAP. PATIENT HAS العلي CATHETER. PATIENT HAS 4X COLD EXTREMITIES. PATIENT WAS MEDICATED FOR PAIN 1X-SEE EMAR. PATIENT BED LOCKED ON LOWEST POSITION.
--- NOTE | 2024-10-24 18:07 | NUR ---
"Spiritual Care | EOL Pt. had passed, but as this resident care spec had entered the room the family members present did not know. They verbalized their concern that she was not breathing. This resident care spec gently shared that the Pt. had passed. The faamily present broke down in unbelief. Comfort and grief support is administered. As emotions simmered this resident care spec facilitated a life review. After some time other family members arrived. Scripture is read, Prayer for the Pt. and a blassing for the family is given. Family had communicated to the Palliative Care nurse that [facility] would be their home of choice. Family verbalized gratitude for the spiritual care visit."
== END 2024-10-24 14:45 | DRG 871 ==
LOC: ER 21:47 → ERHOLD 10-12 05:01 → MEDS 10-12 05:01 → ICUE 10-12 05:01 → PCU 10-12 05:01 → ICUE 10-12 17:00 → PCU 10-19 19:37 → MEDS 10-23 17:32
PROVIDERS: Hospitalist; Internal Medicine; Internal Medicine Critical Care Medicine; Internal Medicine Nephrology; Student in an Organized Health Care Education/Training Program; ADMIT Internal Medicine
PROC: 5A09357 Assistance with Respiratory Ventilation, Less than 24 Consecutive Hours, Continuous Positive Airway Pressure (ICD-10-PCS; principal; 2024-10-12)
PROC: 3E03329 Introduction of Other Anti-infective into Peripheral Vein, Percutaneous Approach (ICD-10-PCS; principal; 2024-10-12)
PROC: 0T9B70Z Drainage of Bladder with Drainage Device, Via Natural or Artificial Opening (ICD-10-PCS; principal; 2024-10-12)
PROC: 3E033XZ Introduction of Vasopressor into Peripheral Vein, Percutaneous Approach (ICD-10-PCS; 2024-10-12)
PROC: 5A1D70Z Performance of Urinary Filtration, Intermittent, Less than 6 Hours Per Day (ICD-10-PCS; 2024-10-13)
PROC: 30233J1 Transfusion of Nonautologous Serum Albumin into Peripheral Vein, Percutaneous Approach (ICD-10-PCS; 2024-10-13)
PROC: 3E043XZ Introduction of Vasopressor into Central Vein, Percutaneous Approach (ICD-10-PCS; 2024-10-13)
PROC: 3E03317 Introduction of Other Thrombolytic into Peripheral Vein, Percutaneous Approach (ICD-10-PCS; 2024-10-21)
PROC: 0D9670Z Drainage of Stomach with Drainage Device, Via Natural or Artificial Opening (ICD-10-PCS; 2024-10-21)
PROC: 4A033R1 Measurement of Arterial Saturation, Peripheral, Percutaneous Approach (ICD-10-PCS; 2024-10-21)
DX: A41.01 Sepsis due to Methicillin susceptible Staphylococcus aureus (principal); D66 Hereditary factor VIII deficiency; G93.41 Metabolic encephalopathy; N17.0 Acute kidney failure with tubular necrosis; R65.21 Severe sepsis with septic shock; I50.33 Acute on chronic diastolic (congestive) heart failure; L03.313 Cellulitis of chest wall; E87.20 Acidosis, unspecified; J96.11 Chronic respiratory failure with hypoxia; E66.2 Morbid (severe) obesity with alveolar hypoventilation; J96.12 Chronic respiratory failure with hypercapnia; M86.672 Other chronic osteomyelitis, left ankle and foot; Z68.41 Body mass index [BMI] 40.0-44.9, adult; Z51.5 Encounter for palliative care; Z66 Do not resuscitate; R57.1 Hypovolemic shock; N61.1 Abscess of the breast and nipple; E11.40 Type 2 diabetes mellitus with diabetic neuropathy, unspecified; I70.222 Atherosclerosis of native arteries of extremities with rest pain, left leg; I70.235 Atherosclerosis of native arteries of right leg with ulceration of other part of foot; K21.9 Gastro-esophageal reflux disease without esophagitis; E83.51 Hypocalcemia; E87.5 Hyperkalemia; E83.39 Other disorders of phosphorus metabolism; M06.9 Rheumatoid arthritis, unspecified; Z79.01 Long term (current) use of anticoagulants; Z95.2 Presence of prosthetic heart valve; J44.9 Chronic obstructive pulmonary disease, unspecified; L97.522 Non-pressure chronic ulcer of other part of left foot with fat layer exposed; E78.00 Pure hypercholesterolemia, unspecified; I11.0 Hypertensive heart disease with heart failure; F41.8 Other specified anxiety disorders; M10.9 Gout, unspecified; B37.2 Candidiasis of skin and nail; Z87.442 Personal history of urinary calculi; Z90.49 Acquired absence of other specified parts of digestive tract; Z98.890 Other specified postprocedural states; Z88.5 Allergy status to narcotic agent; Z88.8 Allergy status to other drugs, medicaments and biological substances; Z87.891 Personal history of nicotine dependence; I44.1 Atrioventricular block, second degree; L89.101 Pressure ulcer of unspecified part of back, stage 1; Z99.2 Dependence on renal dialysis
CPT/HCPCS: 36415; 36556; 36600; 51702; 71045; 73630; 74177; 80048; 80053; 80069; 80074; 81001; 82270; 82306; 82330; 82436; 82533; 82570; 82652; 82803; 82947; 83605; 83735; 83935; 84100; 84132; 84145; 84300; 84478; 84540; 85014; 85018; 85025; 85027; 85610; 85730; 86704; 86850; 86900; 86901; 87040; 87070; 87077; 87186; 87205; 87507; 92526; 92610; 93005; 93010; 93308; 93321; 94640; 94660; 94664; 94762; 96374-59; 96375; 97110; 97162; 97165; 97530; 99285-25; A9270; C1752; J0171; J0612; J0696; J1171; J1720; J1815; J2248; J2405; J2700; J2997; J3010; J7030; J7040; J7050; J7060; J7070; P9046; Q9967